=== PATIENT | male | born 1955 | race Caucasian/White ===

== ENCOUNTER 2021-08-02 14:22 | Inpatient (IN) | payer OTHER ==
[~2021-08-02] VITALS: Ht 167.6 cm; Wt 76.6 kg
[2021-08-02 14:44] LABS: Hematocrit 48.6 % (37.0-53.0); Hemoglobin 16.8 g/dL (13.5-17.5); Mean Corpuscular HGB 31.5 pg (26.0-34.0); Mean Corpuscular HGB Conc 34.6 g/dL (31.5-36.5); Mean Corpuscular Volume 91 fL (80-100); Mean Platelet Volume 10.9 fL (9.1-12.4); Platelet Count 244 K/mm3 (150-400); RDW Coefficient Variation 12.3 % (11.7-14.2); RDW Standard Deviation 40.8 fL (35.1-46.3); Red Blood Cell Count 5.33 M/mm3 (4.30-5.90); White Blood Cell Count 9.31 K/mm3 (4.00-11.30)
[2021-08-02 15:01] LABS: Troponin I <0.015 ng/mL (0.000-0.040)
[2021-08-02 15:08] LABS: Alanine Aminotransfer (ALT/SGP 21 U/L (12-78); Albumin, Blood 2.5 g/dL (3.4-5.0); Albumin/Globulin Ratio 0.6 (0.8-1.8); Alk Phos 112 U/L (50-136); Anion Gap 14 mmol/L (6-16); Aspartate Aminotrans (AST/SGOT 12 U/L (12-37); Bilirubin, Total 1.1 mg/dL (0.1-1.0); Blood Urea Nitrogen 89 mg/dL (8-24); Bun/Creatinine Ratio 63.6 (12.0-20.0); CO2, Blood 21 mmol/L (21-32); Chloride, Blood 96 mmol/L (98-108); Globulin, Blood 4.2 g/dL (2.2-4.0); Glomerular Filtration Rate 50 (60-); Glucose, Blood 603 mg/dL (70-99); Sodium, Blood 131 mmol/L (136-145); Total Protein, Blood 6.7 g/dL (6.4-8.2)
[2021-08-02 15:09] LABS: BAND PERCENT MAN 21 % (0-8); BASOPHILS PERCENT MAN 0 % (0-2); EOSINOPHILS PERCENT MAN 0 % (0-6); LYMPHOCYTES % ATYPICAL MANUAL 4 % (0-0); LYMPHOCYTES ABSOLUTE MAN 1.39 K/mm3 (0.84-5.20); LYMPHOCYTES PERCENT MAN 11 % (21-46); METAMYELOCYTE ABSOLUTE MAN 1.11 K/mm3 (0.00-0.00); METAMYELOCYTE PERCENT MAN 12 % (0-0); MONOCYTES ABSOLUTE MAN 0.46 K/mm3 (0.16-1.47); MONOCYTES PERCENT MAN 5 % (4-13); MYELOCYTE ABSOLUTE MAN 0.09 K/mm3 (0.00-0.00); MYELOCYTE PERCENT MAN 1 % (0-0); NEUTROPHILS ABSOLUTE MAN 6.23 K/mm3 (1.96-9.15); SEG NEUTROPHILS PERCENT MAN 46 % (41-73); TOTAL CELLS COUNTED 100
[2021-08-02 16:24] LABS: Source, Urine Clean Catch
[2021-08-02 16:27] LABS: Appearance, Urine Clear (Clear); Blood, Urine 1+ (Neg); Color, Urine Amber (P-Yellow); Glucose Qualitative, Urine 4+ (Neg); Ketones, Urine 3+ (Neg); Leukocyte Esterase, Urine 1+ (Neg); Nitrite, Urine Neg (Neg); Protein, Urine 2+ (Neg); Urobilinogen, Urine 2+ (Normal)
[2021-08-02 16:33] LABS: SARS-Cov-2 (COVID-19) PCR, MMC NEGATIVE (NEGATIVE)
[2021-08-02 16:33] LABS: Bilirubin, Urine 1+ (Neg)
[2021-08-02 16:34] LABS: Squamous Epithelial Cells Mod /hpf (Few)
[2021-08-02 16:35] LABS: Bacteria Mod /hpf
--- NOTE | 2021-08-02 20:13 | NUR ---
transfer report from [employer] on 66 year Male covid neg with bilat LL pneu. PT has no med hx but BG 610 on ER record. Has sliding scale insulin rx for 1999, CT pulm angio for elev D Dimer. Bowel obs NPO . ABX x 2 given 2nd l IVF running. Await admissio n. RA sats greater than 92%
[2021-08-02 21:53] LABS: Adenovirus Not Detected (NOT DETECT); Bordetella pertussis Not Detected (NOT DETECT); Chlamydophila pneumoniae Not Detected (NOT DETECT); Coronavirus 229E Not Detected (NOT DETECT); Coronavirus HKU1 Not Detected (NOT DETECT); Coronavirus NL63 Not Detected (NOT DETECT); Coronavirus OC43 Not Detected (NOT DETECT); Human Metapneumovirus Not Detected (NOT DETECT); Human Rhinovirus/Enterovirus Not Detected (NOT DETECT); Influenza A/2009-H1 Not Detected (NOT DETECT); Influenza A/H1 Not Detected (NOT DETECT); Influenza A/H3 Not Detected (NOT DETECT); Influenza B Not Detected (NOT DETECT); Mycoplasma pneumoniae Not Detected (NOT DETECT); Parainfluenza Virus 1 Not Detected (NOT DETECT); Parainfluenza Virus 2 Not Detected (NOT DETECT); Parainfluenza Virus 3 Not Detected (NOT DETECT); Parainfluenza Virus 4 Not Detected (NOT DETECT); Respiratory Syncytial Virus Not Detected (NOT DETECT); SARS-Cov-2 (COVID-19), BioFire Not Detected (NOT DETECT)
[2021-08-03 05:24] LABS: Hematocrit 48.8 % (37.0-53.0); LYMPHOCYTES ABSOLUTE AUTO 1.52 K/mm3 (0.84-5.20); LYMPHOCYTES PERCENT AUTO 17 % (21-46); MONOCYTES ABSOLUTE AUTO 1.18 K/mm3 (0.16-1.47); MONOCYTES PERCENT AUTO 13 % (4-13); Mean Corpuscular HGB 30.4 pg (26.0-34.0); Mean Corpuscular HGB Conc 32.8 g/dL (31.5-36.5); Mean Corpuscular Volume 93 fL (80-100); Mean Platelet Volume 10.8 fL (9.1-12.4); Platelet Count 226 K/mm3 (150-400); RDW Coefficient Variation 12.4 % (11.7-14.2); RDW Standard Deviation 42.7 fL (35.1-46.3); Red Blood Cell Count 5.27 M/mm3 (4.30-5.90); White Blood Cell Count 8.85 K/mm3 (4.00-11.30)
[2021-08-03 05:33] LABS: BASOPHILS ABSOLUTE AUTO 0.01 K/mm3 (0.00-0.23); BASOPHILS PERCENT AUTO 0 % (0-2); EOSINOPHILS ABSOLUTE AUTO 0.07 K/mm3 (0.00-0.68); EOSINOPHILS PERCENT AUTO 1 % (0-6); IMMATURE GRAN ABSOLUTE AUTO 0.16 K/mm3 (0.00-0.10); IMMATURE GRAN PERCENT AUTO 2 % (0-1); NEUTROPHILS ABSOLUTE AUTO 5.91 K/mm3 (1.96-9.15); NEUTROPHILS PERCENT AUTO 67 % (41-73)
[2021-08-03 05:43] LABS: Magnesium, Blood 3.2 mg/dL (1.6-2.4)
[2021-08-03 05:44] LABS: Anion Gap 6 mmol/L (6-16); Blood Urea Nitrogen 74 mg/dL (8-24); Bun/Creatinine Ratio 68.5 (12.0-20.0); CO2, Blood 28 mmol/L (21-32); Calcium, Blood 7.6 mg/dL (8.5-10.1); Chloride, Blood 107 mmol/L (98-108); Creatinine, Blood 1.08 mg/dL (0.60-1.20); Glomerular Filtration Rate >60 (60-); Glucose, Blood 241 mg/dL (70-99); Phosphorus, Blood 3.7 mg/dL (2.5-4.9); Potassium, Blood 3.5 mmol/L (3.5-5.5); Sodium, Blood 141 mmol/L (136-145)
[2021-08-03 06:08] LABS: BAND PERCENT MAN 22 % (0-8); BASOPHILS PERCENT MAN 0 % (0-2); EOSINOPHILS PERCENT MAN 0 % (0-6); LYMPHOCYTES % ATYPICAL MANUAL 1 % (0-0); LYMPHOCYTES ABSOLUTE MAN 1.68 K/mm3 (0.84-5.20); LYMPHOCYTES PERCENT MAN 18 % (21-46); METAMYELOCYTE ABSOLUTE MAN 0.26 K/mm3 (0.00-0.00); METAMYELOCYTE PERCENT MAN 3 % (0-0); MONOCYTES ABSOLUTE MAN 1.15 K/mm3 (0.16-1.47); MONOCYTES PERCENT MAN 13 % (4-13); NEUTROPHILS ABSOLUTE MAN 5.75 K/mm3 (1.96-9.15); SEG NEUTROPHILS PERCENT MAN 43 % (41-73); TOTAL CELLS COUNTED 100
--- NOTE | 2021-08-03 10:43 | NUR ---
PATIENT EMESISED, OPAQUE BROWN FLUID, NG PLACED, LEFT FOR SURGERY AT 1040, TO RETURN TO ROOM, PATIENTS BROTHER YOMAIRA WAS CONTACTED BY FOR CONSENT
--- NOTE | 2021-08-03 11:08 | NUR ---
CALLED PATIENTS BROTHER YOMAIRA, BOTH THE PATIENT AND THE TWO BROTHERS AT HOME ARE HANDICAP, THE BROTHER YOMAIRA DENIED ANY REGUALR ADJUSTMENT SUPERVISOR AT HOME.
--- NOTE | 2021-08-03 12:10 | NUR ---
08/03/21 1210 Elia Ovalle UPON PREPARATION FOR CATHETERIZATION PATIENT NOTED TO HAVE DARK MATERIAL AROUND HEAD OF PENIS AND SMEGMA UNDER FORESKIN. PENIS WAS CLEANED WITH WARM SOAPY WATER AND WASH CLOTH BY [place] AND [place]. AFTER ESCOBAR PLACEMENT FORESKIN WAS REPLACED TO ORIGINAL POSITION.
--- NOTE | 2021-08-03 17:48 | NUR ---
PATIENT CURRENTLY LYING IN BED WITH HOB ELEVATED TO 30 DEGREES. NGT TO RIGHT NARE TO LIS WITH BROWN DRAINAGE NOTED IN TUBING. BOWEL SOUNDS HYPERACTIVE WITH VERY GOOD OUTPUT OF STOOL FROM COLOSTOMY (600ML). FLATUS NOTED. ESCOBAR CATH WITH DARK JAYE COLOR URINE IN DRAINAGE BAG. PATIENT IS AAOX3-4. ABLE TO MAKE NEEDS AND WANTS KNOWN. SLOW TO ANSWER QUESTIONS BUT RESPONDS/ANSWERS CORRECTLY. NO SIGNS OR SYMPTOMS ACUTE DISTRESS NOTED. WILL MONITOR.
--- NOTE | 2021-08-03 18:01 | NUR ---
PATIENT SAID YES TO TALKING TO JOJO LARA, AT MAY THIS BE HOME? SPOKE WITH JOJO 1802
[2021-08-03 18:56] LABS: Hematocrit 49.7 % (37.0-53.0); Hemoglobin 16.5 g/dL (13.5-17.5); Mean Corpuscular HGB 31.7 pg (26.0-34.0); Mean Corpuscular HGB Conc 33.2 g/dL (31.5-36.5); Mean Corpuscular Volume 95 fL (80-100); Mean Platelet Volume 10.3 fL (9.1-12.4); Platelet Count 190 K/mm3 (150-400); RDW Coefficient Variation 12.5 % (11.7-14.2); RDW Standard Deviation 44.1 fL (35.1-46.3); Red Blood Cell Count 5.21 M/mm3 (4.30-5.90); White Blood Cell Count 10.62 K/mm3 (4.00-11.30)
[2021-08-03 19:15] LABS: Alanine Aminotransfer (ALT/SGP 14 U/L (12-78); Albumin, Blood 1.6 g/dL (3.4-5.0); Albumin/Globulin Ratio 0.5 (0.8-1.8); Alk Phos 80 U/L (50-136); Anion Gap 9 mmol/L (6-16); Aspartate Aminotrans (AST/SGOT 13 U/L (12-37); Bilirubin, Total 0.5 mg/dL (0.1-1.0); Blood Urea Nitrogen 58 mg/dL (8-24); Bun/Creatinine Ratio 68.4 (12.0-20.0); CO2, Blood 24 mmol/L (21-32); Calcium, Blood 7.5 mg/dL (8.5-10.1); Chloride, Blood 110 mmol/L (98-108); Creatinine, Blood 0.85 mg/dL (0.60-1.20); Globulin, Blood 3.2 g/dL (2.2-4.0); Glomerular Filtration Rate >60 (60-); Glucose, Blood 190 mg/dL (70-99); Potassium, Blood 4.2 mmol/L (3.5-5.5); Sodium, Blood 143 mmol/L (136-145); Total Protein, Blood 4.8 g/dL (6.4-8.2)
[2021-08-03 20:04] LABS: BAND PERCENT MAN 48 % (0-8); BASOPHILS PERCENT MAN 0 % (0-2); EOSINOPHILS PERCENT MAN 0 % (0-6); LYMPHOCYTES % ATYPICAL MANUAL 3 % (0-0); LYMPHOCYTES ABSOLUTE MAN 0.95 K/mm3 (0.84-5.20); LYMPHOCYTES PERCENT MAN 6 % (21-46); METAMYELOCYTE ABSOLUTE MAN 1.38 K/mm3 (0.00-0.00); METAMYELOCYTE PERCENT MAN 13 % (0-0); MONOCYTES ABSOLUTE MAN 0.21 K/mm3 (0.16-1.47); MONOCYTES PERCENT MAN 2 % (4-13); NEUTROPHILS ABSOLUTE MAN 8.07 K/mm3 (1.96-9.15); SEG NEUTROPHILS PERCENT MAN 28 % (41-73); TOTAL CELLS COUNTED 100
[2021-08-04 04:16] LABS: BASOPHILS ABSOLUTE AUTO 0.01 K/mm3 (0.00-0.23); BASOPHILS PERCENT AUTO 0 % (0-2); EOSINOPHILS PERCENT AUTO 0 % (0-6); Hematocrit 46.1 % (37.0-53.0); Hemoglobin 14.8 g/dL (13.5-17.5); IMMATURE GRAN ABSOLUTE AUTO 0.34 K/mm3 (0.00-0.10); IMMATURE GRAN PERCENT AUTO 3 % (0-1); LYMPHOCYTES ABSOLUTE AUTO 0.88 K/mm3 (0.84-5.20); LYMPHOCYTES PERCENT AUTO 8 % (21-46); MONOCYTES ABSOLUTE AUTO 1.04 K/mm3 (0.16-1.47); MONOCYTES PERCENT AUTO 9 % (4-13); Mean Corpuscular HGB 31.2 pg (26.0-34.0); Mean Corpuscular HGB Conc 32.1 g/dL (31.5-36.5); Mean Corpuscular Volume 97 fL (80-100); Mean Platelet Volume 10.5 fL (9.1-12.4); NEUTROPHILS ABSOLUTE AUTO 9.23 K/mm3 (1.96-9.15); NEUTROPHILS PERCENT AUTO 80 % (41-73); Platelet Count 197 K/mm3 (150-400); RDW Coefficient Variation 12.7 % (11.7-14.2); RDW Standard Deviation 45.5 fL (35.1-46.3); Red Blood Cell Count 4.75 M/mm3 (4.30-5.90)
[2021-08-04 04:48] LABS: Alanine Aminotransfer (ALT/SGP 13 U/L (12-78); Albumin, Blood 1.5 g/dL (3.4-5.0); Albumin/Globulin Ratio 0.5 (0.8-1.8); Alk Phos 77 U/L (50-136); Anion Gap 15 mmol/L (6-16); Aspartate Aminotrans (AST/SGOT 10 U/L (12-37); Bilirubin, Total 0.5 mg/dL (0.1-1.0); Blood Urea Nitrogen 63 mg/dL (8-24); CO2, Blood 16 mmol/L (21-32); Calcium, Blood 7.3 mg/dL (8.5-10.1); Chloride, Blood 113 mmol/L (98-108); Creatinine, Blood 1.05 mg/dL (0.60-1.20); Globulin, Blood 3.2 g/dL (2.2-4.0); Glomerular Filtration Rate >60 (60-); Glucose, Blood 256 mg/dL (70-99); Magnesium, Blood 2.8 mg/dL (1.6-2.4); Phosphorus, Blood 4.1 mg/dL (2.5-4.9); Potassium, Blood 3.9 mmol/L (3.5-5.5); Sodium, Blood 144 mmol/L (136-145); Total Protein, Blood 4.7 g/dL (6.4-8.2)
--- NOTE | 2021-08-04 05:07 | NUR ---
PATIENT SLEPT WELL DURING THE NIGHT. BLOOD GLUCOSE WAS TAKE Q 4 HOURS AND WAS FOLLOWS 225, 223, AND 256. COLOSTOMY WAS EMPTIED X 2 AT 425 ML. 300 ML OF DARK JAYE URINE WAS EMPTIED FROM THE ESCOBAR. THE NGT PUT OUT VERY LITTLE BROWN DRAINAGE. PATIENT WAS MEDICATED FOR PAIN X 1. PATIENT SHOWS NO SIGN OF DISTRESS. WILL CONTINUE TO MONITOR.
[2021-08-04 05:18] LABS: BAND PERCENT MAN 11 % (0-8); BASOPHILS PERCENT MAN 0 % (0-2); EOSINOPHILS PERCENT MAN 0 % (0-6); LYMPHOCYTES ABSOLUTE MAN 0.46 K/mm3 (0.84-5.20); LYMPHOCYTES PERCENT MAN 4 % (21-46); MONOCYTES ABSOLUTE MAN 0.69 K/mm3 (0.16-1.47); MONOCYTES PERCENT MAN 6 % (4-13); NEUTROPHILS ABSOLUTE MAN 10.35 K/mm3 (1.96-9.15); SEG NEUTROPHILS PERCENT MAN 79 % (41-73); TOTAL CELLS COUNTED 100
--- NOTE | 2021-08-04 17:53 | NUR ---
SHIFT SUMMARY ASSUMPTION OF CARE AT APPROX 1515. POD1 SIGMOID COLECTOMY. MIDLINE SRINIVAS DRESSING IN PLACE, C/D/I. PT ALERT AND ORIENTED, BUT SLOW TO RESPOND. NG TUBE IN PLACE AND DRAINING. ESCOBAR IN PLACE. PULSE OX ON 95% RA. TOLERATING SIPS AND CHIPS. WILL REPORT TO ONCOMING RN.
[2021-08-05 04:26] LABS: Hematocrit 39.9 % (37.0-53.0); Hemoglobin 12.8 g/dL (13.5-17.5); Mean Corpuscular HGB 31.1 pg (26.0-34.0); Mean Corpuscular HGB Conc 32.1 g/dL (31.5-36.5); Mean Corpuscular Volume 97 fL (80-100); Mean Platelet Volume 10.3 fL (9.1-12.4); Platelet Count 176 K/mm3 (150-400); RDW Coefficient Variation 12.9 % (11.7-14.2); RDW Standard Deviation 46.2 fL (35.1-46.3); Red Blood Cell Count 4.11 M/mm3 (4.30-5.90); White Blood Cell Count 14.52 K/mm3 (4.00-11.30)
[2021-08-05 04:58] LABS: Alanine Aminotransfer (ALT/SGP 12 U/L (12-78); Albumin, Blood 1.4 g/dL (3.4-5.0); Albumin/Globulin Ratio 0.4 (0.8-1.8); Alk Phos 75 U/L (50-136); Anion Gap 8 mmol/L (6-16); Aspartate Aminotrans (AST/SGOT 13 U/L (12-37); Bilirubin, Total 0.4 mg/dL (0.1-1.0); Blood Urea Nitrogen 44 mg/dL (8-24); Bun/Creatinine Ratio 51.7 (12.0-20.0); CO2, Blood 24 mmol/L (21-32); Calcium, Blood 7.1 mg/dL (8.5-10.1); Chloride, Blood 120 mmol/L (98-108); Creatinine, Blood 0.85 mg/dL (0.60-1.20); Globulin, Blood 3.2 g/dL (2.2-4.0); Glomerular Filtration Rate >60 (60-); Glucose, Blood 178 mg/dL (70-99); Magnesium, Blood 2.5 mg/dL (1.6-2.4); Potassium, Blood 2.6 mmol/L (3.5-5.5); Sodium, Blood 152 mmol/L (136-145); Total Protein, Blood 4.6 g/dL (6.4-8.2)
[2021-08-05 05:21] LABS: BAND PERCENT MAN 20 % (0-8); BASOPHILS PERCENT MAN 0 % (0-2); EOSINOPHILS ABSOLUTE MAN 0.14 K/mm3 (0.00-0.68); EOSINOPHILS PERCENT MAN 1 % (0-6); LYMPHOCYTES ABSOLUTE MAN 1.16 K/mm3 (0.84-5.20); LYMPHOCYTES PERCENT MAN 8 % (21-46); MONOCYTES PERCENT MAN 9 % (4-13); SEG NEUTROPHILS PERCENT MAN 62 % (41-73); TOTAL CELLS COUNTED 100
--- NOTE | 2021-08-05 06:27 | NUR ---
PATIENT HAD AN UNEVENTFUL NIGHT. PATIENT HAD 500 ML OF DRAINAGE FROM THE NGT. 700 WAS EMPTIRD FROM THE ESCOBAR. PATIENT PAIN REMAINS CONTROLLED WITH THE BOOSTER PUMP OPERATOR PUMP. PATIENT'S VITALS ARE STABLE AND THERE IS NO SIGN OF DISTRESS. WILL CONTINUE TO MONITOR.
--- NOTE | 2021-08-05 10:36 | NUR ---
PLACED A PHONE CALL TO DR HOPPER AT APROX 1035 CONCERNING PTS ELECTROLYTE LEVELS. STATED THAT SHE WOULD REVIEW THEM. NO ORDERS AT THIS TIME.
[2021-08-05 15:54] LABS: Albumin, Blood 1.3 g/dL (3.4-5.0); Anion Gap 8 mmol/L (6-16); Blood Urea Nitrogen 34 mg/dL (8-24); Bun/Creatinine Ratio 44.3 (12.0-20.0); CO2, Blood 25 mmol/L (21-32); Calcium, Blood 7.3 mg/dL (8.5-10.1); Chloride, Blood 119 mmol/L (98-108); Creatinine, Blood 0.77 mg/dL (0.60-1.20); Glomerular Filtration Rate >60 (60-); Glucose, Blood 195 mg/dL (70-99); Phosphorus, Blood 2.4 mg/dL (2.5-4.9); Potassium, Blood 2.6 mmol/L (3.5-5.5); Sodium, Blood 152 mmol/L (136-145)
--- NOTE | 2021-08-05 17:47 | NUR ---
SHIFT SUMMARY A/0X4, SLOW TO RESPOND. POD2 SIGMOID COLECTOMY WITH OSTOMY. PT VITALS STABLE, PULSE STILL TACHY BUT TRENDING DOWN. ESCOBAR PATENT DRAINING CLEAR YELLOW URINE. NG TUBE PATENT, DRAINING DARK FLUID. PT UP TO BEDSIDE TODAY AND PAIN STILL BEING MANAGED WITH DEPUTY SHERIFF PUMP. OSTOMY PUTTING OUT STOOL. TOLERATING SIPS AND CHIPS. NO N/V REPORTED. WILL REPORT TO ONCOMING RN.
[2021-08-06 05:31] LABS: Hematocrit 40.7 % (37.0-53.0); Hemoglobin 12.9 g/dL (13.5-17.5); Mean Corpuscular HGB 30.9 pg (26.0-34.0); Mean Corpuscular HGB Conc 31.7 g/dL (31.5-36.5); Mean Corpuscular Volume 97 fL (80-100); Mean Platelet Volume 10.9 fL (9.1-12.4); Platelet Count 144 K/mm3 (150-400); RDW Coefficient Variation 13.2 % (11.7-14.2); RDW Standard Deviation 47.8 fL (35.1-46.3); Red Blood Cell Count 4.18 M/mm3 (4.30-5.90); White Blood Cell Count 13.41 K/mm3 (4.00-11.30)
--- NOTE | 2021-08-06 05:40 | NUR ---
PATIENT REMAINS ALERT AND ORIENTED X4, BUT SLOW TO RESPOND. PAIN IS CONTROLLED WITH A ACQUISITION EDITOR PUMP. VITALS AND BLOOD GLUCOSE IS STABLE, AND THERE IS NO SIGN OF DISTRESS, WILL CONTINUE TO MONITOR.
[2021-08-06 06:12] LABS: BAND PERCENT MAN 4 % (0-8); BASOPHILS PERCENT MAN 0 % (0-2); EOSINOPHILS PERCENT MAN 0 % (0-6); LYMPHOCYTES PERCENT MAN 3 % (21-46); METAMYELOCYTE ABSOLUTE MAN 0.13 K/mm3 (0.00-0.00); METAMYELOCYTE PERCENT MAN 1 % (0-0); MONOCYTES ABSOLUTE MAN 0.26 K/mm3 (0.16-1.47); MONOCYTES PERCENT MAN 2 % (4-13); MYELOCYTE ABSOLUTE MAN 0.13 K/mm3 (0.00-0.00); MYELOCYTE PERCENT MAN 1 % (0-0); NEUTROPHILS ABSOLUTE MAN 12.47 K/mm3 (1.96-9.15); SEG NEUTROPHILS PERCENT MAN 89 % (41-73); TOTAL CELLS COUNTED 100
--- NOTE | 2021-08-06 06:54 | NUR ---
POTASSIUM WAS 2.6, POTASSIUM 500ML IV X 2 WAS GIVEN. LABS ARE PENDING. WILL CONTINUE TO MONITOR.
[2021-08-06 07:00] LABS: Albumin, Blood 1.3 g/dL (3.4-5.0); Anion Gap 9 mmol/L (6-16); Blood Urea Nitrogen 22 mg/dL (8-24); Bun/Creatinine Ratio 33.7 (12.0-20.0); CO2, Blood 24 mmol/L (21-32); Calcium, Blood 7.3 mg/dL (8.5-10.1); Chloride, Blood 117 mmol/L (98-108); Creatinine, Blood 0.65 mg/dL (0.60-1.20); Glomerular Filtration Rate >60 (60-); Glucose, Blood 200 mg/dL (70-99); Magnesium, Blood 2.6 mg/dL (1.6-2.4); Phosphorus, Blood 2.6 mg/dL (2.5-4.9); Potassium, Blood 2.6 mmol/L (3.5-5.5); Sodium, Blood 150 mmol/L (136-145)
[2021-08-06 10:09] LABS: Albumin, Blood 1.4 g/dL (3.4-5.0); Anion Gap 6 mmol/L (6-16); Blood Urea Nitrogen 19 mg/dL (8-24); Bun/Creatinine Ratio 35.1 (12.0-20.0); CO2, Blood 26 mmol/L (21-32); Calcium, Blood 7.2 mg/dL (8.5-10.1); Chloride, Blood 118 mmol/L (98-108); Creatinine, Blood 0.54 mg/dL (0.60-1.20); Glomerular Filtration Rate >60 (60-); Glucose, Blood 184 mg/dL (70-99); Phosphorus, Blood 1.7 mg/dL (2.5-4.9); Potassium, Blood 2.2 mmol/L (3.5-5.5); Sodium, Blood 150 mmol/L (136-145)
[2021-08-06 15:08] LABS: Albumin, Blood 1.4 g/dL (3.4-5.0); Anion Gap 7 mmol/L (6-16); Blood Urea Nitrogen 17 mg/dL (8-24); Bun/Creatinine Ratio 28.6 (12.0-20.0); CO2, Blood 28 mmol/L (21-32); Chloride, Blood 114 mmol/L (98-108); Glomerular Filtration Rate >60 (60-); Glucose, Blood 251 mg/dL (70-99); Phosphorus, Blood 2.3 mg/dL (2.5-4.9); Potassium, Blood 2.3 mmol/L (3.5-5.5); Sodium, Blood 149 mmol/L (136-145)
--- NOTE | 2021-08-06 17:23 | NUR ---
SUMMARY PT HAS HAD CL K T/O DAY. REC'D ONE K PHOS PER ORDERS NOW RECEIVING KCL PER ORDERS. ADMINISTERED IV ABX PER ORDERS. PT SAT UP IN CHAIR FOR AWHILE DURING SHIFT. NG DRAINING GREEN LIQUID W/SOME SOLID MATTER TO LIS. OSTOMY DRAINING GREEN LIQUID. PT DENIES ANY ABDOMINAL PAIN OR NAUSEA. CALL LIGHT AND PARKS RECREATION COORDINATOR IN REACH.
[2021-08-06 22:13] LABS: Albumin, Blood 1.2 g/dL (3.4-5.0); Anion Gap 5 mmol/L (6-16); Blood Urea Nitrogen 13 mg/dL (8-24); Bun/Creatinine Ratio 25.6 (12.0-20.0); CO2, Blood 29 mmol/L (21-32); Calcium, Blood 6.9 mg/dL (8.5-10.1); Chloride, Blood 113 mmol/L (98-108); Creatinine, Blood 0.51 mg/dL (0.60-1.20); Glomerular Filtration Rate >60 (60-); Glucose, Blood 249 mg/dL (70-99); Phosphorus, Blood 1.6 mg/dL (2.5-4.9); Potassium, Blood 2.3 mmol/L (3.5-5.5); Sodium, Blood 147 mmol/L (136-145)
--- NOTE | 2021-08-07 01:50 | NUR ---
PATIENT HAD CRITICAL POTASSIUM OF 2.3, AND MD NOTIFIED AND FLUIDS WERE CHANGED TO D5 1/4 NS WITH 20 MEQ OF POTASSIUM, 60 MEQ OVER A 6 HOUR PERIOD, AND TELEMETRY WAS ORDERING AND BEING ADMINISTERED. WILL CONTINUE TO MONITOR.
--- NOTE | 2021-08-07 05:28 | NUR ---
PATIENT RECEIVED 40 MEQ OF POTASSIUM AND THE LASDT 20 MEQ IS INFUSING. LABS WILL BE DRAWN AT 0700, WHICH WILL BE AN HOUR AFTER COMPLETION OF THE 60 MEQ IV OF POTASSIUM. I WILL REPORT THIS TO THE ONCOMING NURSE. WILL CONTINUE TO MONITOR.
[2021-08-07 08:34] LABS: Albumin, Blood 1.4 g/dL (3.4-5.0); Anion Gap 5 mmol/L (6-16); Blood Urea Nitrogen 10 mg/dL (8-24); Bun/Creatinine Ratio 20.7 (12.0-20.0); CO2, Blood 29 mmol/L (21-32); Chloride, Blood 114 mmol/L (98-108); Creatinine, Blood 0.48 mg/dL (0.60-1.20); Glomerular Filtration Rate >60 (60-); Glucose, Blood 234 mg/dL (70-99); Phosphorus, Blood 1.4 mg/dL (2.5-4.9); Potassium, Blood 2.4 mmol/L (3.5-5.5); Sodium, Blood 148 mmol/L (136-145)
--- NOTE | 2021-08-07 08:50 | NUR ---
PT HAD CRITICAL K OF 2.4. TELE REPORTED WIDENED QT COMPLEX OF .5. NOTIFIED DR HUNT.
[2021-08-07 10:22] LABS: BASOPHILS ABSOLUTE AUTO 0.04 K/mm3 (0.00-0.23); BASOPHILS PERCENT AUTO 0 % (0-2); EOSINOPHILS ABSOLUTE AUTO 0.04 K/mm3 (0.00-0.68); EOSINOPHILS PERCENT AUTO 0 % (0-6); Hematocrit 34.7 % (37.0-53.0); Hemoglobin 11.5 g/dL (13.5-17.5); IMMATURE GRAN ABSOLUTE AUTO 0.33 K/mm3 (0.00-0.10); IMMATURE GRAN PERCENT AUTO 3 % (0-1); LYMPHOCYTES ABSOLUTE AUTO 1.33 K/mm3 (0.84-5.20); LYMPHOCYTES PERCENT AUTO 11 % (21-46); MONOCYTES PERCENT AUTO 8 % (4-13); Mean Corpuscular HGB 31.6 pg (26.0-34.0); Mean Corpuscular HGB Conc 33.1 g/dL (31.5-36.5); Mean Corpuscular Volume 95 fL (80-100); Mean Platelet Volume 10.9 fL (9.1-12.4); NEUTROPHILS ABSOLUTE AUTO 9.03 K/mm3 (1.96-9.15); NEUTROPHILS PERCENT AUTO 78 % (41-73); Platelet Count 157 K/mm3 (150-400); RDW Coefficient Variation 12.7 % (11.7-14.2); RDW Standard Deviation 44.7 fL (35.1-46.3); Red Blood Cell Count 3.64 M/mm3 (4.30-5.90); White Blood Cell Count 11.67 K/mm3 (4.00-11.30)
[2021-08-07 10:50] LABS: Albumin, Blood 1.2 g/dL (3.4-5.0); Anion Gap 5 mmol/L (6-16); Blood Urea Nitrogen 9 mg/dL (8-24); Bun/Creatinine Ratio 19.8 (12.0-20.0); CO2, Blood 29 mmol/L (21-32); Chloride, Blood 113 mmol/L (98-108); Creatinine, Blood 0.45 mg/dL (0.60-1.20); Glomerular Filtration Rate >60 (60-); Glucose, Blood 244 mg/dL (70-99); Phosphorus, Blood 1.3 mg/dL (2.5-4.9); Potassium, Blood 2.3 mmol/L (3.5-5.5); Sodium, Blood 147 mmol/L (136-145)
[2021-08-07 15:58] LABS: Albumin, Blood 1.3 g/dL (3.4-5.0); Anion Gap 7 mmol/L (6-16); Blood Urea Nitrogen 8 mg/dL (8-24); Bun/Creatinine Ratio 15.4 (12.0-20.0); CO2, Blood 28 mmol/L (21-32); Chloride, Blood 111 mmol/L (98-108); Creatinine, Blood 0.52 mg/dL (0.60-1.20); Glomerular Filtration Rate >60 (60-); Glucose, Blood 246 mg/dL (70-99); Phosphorus, Blood 2.8 mg/dL (2.5-4.9); Potassium, Blood 2.6 mmol/L (3.5-5.5); Sodium, Blood 146 mmol/L (136-145)
--- NOTE | 2021-08-07 17:01 | NUR ---
SUMMARY PT HAS CONTINUED TO HAVE LOW K. K PHOS RUNNING PER ORDERS AT THIS TIME. ADMISTERED IV ABX PER ORDERS. PT HAS DENIED PAIN T/O SHIFT. HAS SLEPT OFF AND ON MOST OF DAY. OSTOMY LEAKED INTO SRINIVAS DRESSING; CLEANED INCISION AND PLACED MEDIPORE DRESSING AND NEW OSTOMY APPLIANCE. PT TOLERATED WELL. NG AND OSTOMY DRAINING GREEN LIQUID. PT PLEASANT AND COOPERATIVE. CALL LIGHT IN REACH.
[2021-08-07 22:05] LABS: Albumin, Blood 1.3 g/dL (3.4-5.0); Anion Gap 5 mmol/L (6-16); Blood Urea Nitrogen 7 mg/dL (8-24); Bun/Creatinine Ratio 15.4 (12.0-20.0); CO2, Blood 30 mmol/L (21-32); Chloride, Blood 110 mmol/L (98-108); Creatinine, Blood 0.46 mg/dL (0.60-1.20); Glomerular Filtration Rate >60 (60-); Glucose, Blood 216 mg/dL (70-99); Phosphorus, Blood 2.3 mg/dL (2.5-4.9); Potassium, Blood 2.4 mmol/L (3.5-5.5); Sodium, Blood 145 mmol/L (136-145)
[2021-08-08 04:07] LABS: BASOPHILS ABSOLUTE AUTO 0.06 K/mm3 (0.00-0.23); BASOPHILS PERCENT AUTO 0 % (0-2); EOSINOPHILS ABSOLUTE AUTO 0.08 K/mm3 (0.00-0.68); EOSINOPHILS PERCENT AUTO 1 % (0-6); Hematocrit 37.5 % (37.0-53.0); Hemoglobin 12.5 g/dL (13.5-17.5); IMMATURE GRAN ABSOLUTE AUTO 0.32 K/mm3 (0.00-0.10); IMMATURE GRAN PERCENT AUTO 2 % (0-1); LYMPHOCYTES ABSOLUTE AUTO 1.49 K/mm3 (0.84-5.20); LYMPHOCYTES PERCENT AUTO 9 % (21-46); MONOCYTES ABSOLUTE AUTO 1.06 K/mm3 (0.16-1.47); MONOCYTES PERCENT AUTO 7 % (4-13); Mean Corpuscular HGB 31.3 pg (26.0-34.0); Mean Corpuscular HGB Conc 33.3 g/dL (31.5-36.5); Mean Corpuscular Volume 94 fL (80-100); Mean Platelet Volume 10.6 fL (9.1-12.4); NEUTROPHILS ABSOLUTE AUTO 13.03 K/mm3 (1.96-9.15); NEUTROPHILS PERCENT AUTO 81 % (41-73); Platelet Count 125 K/mm3 (150-400); RDW Coefficient Variation 12.4 % (11.7-14.2); RDW Standard Deviation 43.6 fL (35.1-46.3); Red Blood Cell Count 3.99 M/mm3 (4.30-5.90); White Blood Cell Count 16.04 K/mm3 (4.00-11.30)
[2021-08-08 04:22] LABS: Albumin, Blood 1.2 g/dL (3.4-5.0); Anion Gap 6 mmol/L (6-16); Blood Urea Nitrogen 5 mg/dL (8-24); CO2, Blood 29 mmol/L (21-32); Chloride, Blood 109 mmol/L (98-108); Creatinine, Blood 0.45 mg/dL (0.60-1.20); Glomerular Filtration Rate >60 (60-); Glucose, Blood 193 mg/dL (70-99); Phosphorus, Blood 2.2 mg/dL (2.5-4.9); Potassium, Blood 2.4 mmol/L (3.5-5.5); Sodium, Blood 144 mmol/L (136-145)
--- NOTE | 2021-08-08 07:11 | NUR ---
PT IS A/OX3. ABLE TO MAKE HIS NEEDS KNOWN. PLEASANT AND COOPERATIVE WITH STAFF AND HIS CARE. NO EVENTS OVER NIGHT. POD 5. NPO. NGT TO RT DEANDRE MIGUEL. GREEN EFFLUENT IN NGT CANNISTER. OSTOMY POUCH/WAFER INTACT, GREEN LIQUID EFFLUENT. ABD MIDLINE INCISION DRSG CDI. ESCOBAR CATHETER PATENT, DRAINING YELLOW URINE.
--- NOTE | 2021-08-08 17:47 | NUR ---
SHIFT SUMMARY POST OP SIG COLECTOMY WITH COLOSTOMY. GAUZE AND TAPE DRESSING OVER MIDLINE WAS CHANGED TODAY AND IS C/D/I. COLOSTMY APPLIANCES CHANGED TODAY, C/D/I. UP TO CHAIR FOR MOST OF THE DAY TODAY, TOLERATED IT WELL. NG TUBE AND ESCOBAR REMOVED TODAY. SLIGHT N/V WHEN NG REMOVED, NONE SINCE. SIPS AND CHIPS AT THIS TIME. VOIDING WELL. PT REPORTED NO PAIN TODAY. WILL REPORT TO ONCOMING RN.
[2021-08-09 05:05] LABS: BASOPHILS ABSOLUTE AUTO 0.04 K/mm3 (0.00-0.23); BASOPHILS PERCENT AUTO 0 % (0-2); EOSINOPHILS PERCENT AUTO 1 % (0-6); Hematocrit 35.4 % (37.0-53.0); Hemoglobin 12.1 g/dL (13.5-17.5); IMMATURE GRAN ABSOLUTE AUTO 0.34 K/mm3 (0.00-0.10); IMMATURE GRAN PERCENT AUTO 2 % (0-1); LYMPHOCYTES ABSOLUTE AUTO 1.43 K/mm3 (0.84-5.20); LYMPHOCYTES PERCENT AUTO 9 % (21-46); MONOCYTES ABSOLUTE AUTO 0.97 K/mm3 (0.16-1.47); MONOCYTES PERCENT AUTO 6 % (4-13); Mean Corpuscular HGB 31.4 pg (26.0-34.0); Mean Corpuscular HGB Conc 34.2 g/dL (31.5-36.5); Mean Corpuscular Volume 92 fL (80-100); Mean Platelet Volume 10.7 fL (9.1-12.4); NEUTROPHILS ABSOLUTE AUTO 13.47 K/mm3 (1.96-9.15); NEUTROPHILS PERCENT AUTO 83 % (41-73); Platelet Count 145 K/mm3 (150-400); RDW Coefficient Variation 12.4 % (11.7-14.2); RDW Standard Deviation 41.3 fL (35.1-46.3); Red Blood Cell Count 3.85 M/mm3 (4.30-5.90); White Blood Cell Count 16.35 K/mm3 (4.00-11.30)
[2021-08-09 05:26] LABS: Magnesium, Blood 1.7 mg/dL (1.6-2.4)
[2021-08-09 05:46] LABS: Albumin, Blood 1.3 g/dL (3.4-5.0); Anion Gap 5 mmol/L (6-16); Blood Urea Nitrogen 5 mg/dL (8-24); CO2, Blood 32 mmol/L (21-32); Chloride, Blood 106 mmol/L (98-108); Creatinine, Blood 0.46 mg/dL (0.60-1.20); Glomerular Filtration Rate >60 (60-); Glucose, Blood 134 mg/dL (70-99); Phosphorus, Blood 1.9 mg/dL (2.5-4.9); Potassium, Blood 2.2 mmol/L (3.5-5.5); Sodium, Blood 143 mmol/L (136-145); Triglycerides 82 mg/dL (30-160)
[2021-08-09 15:19] LABS: Albumin, Blood 1.3 g/dL (3.4-5.0); Anion Gap 6 mmol/L (6-16); Blood Urea Nitrogen 7 mg/dL (8-24); Bun/Creatinine Ratio 15.4 (12.0-20.0); CO2, Blood 31 mmol/L (21-32); Calcium, Blood 6.9 mg/dL (8.5-10.1); Chloride, Blood 103 mmol/L (98-108); Creatinine, Blood 0.46 mg/dL (0.60-1.20); Glomerular Filtration Rate >60 (60-); Glucose, Blood 249 mg/dL (70-99); Phosphorus, Blood 3.4 mg/dL (2.5-4.9); Potassium, Blood 2.6 mmol/L (3.5-5.5); Sodium, Blood 140 mmol/L (136-145)
--- NOTE | 2021-08-09 17:17 | NUR ---
SHIFT SUMMARY PT IS PLEASANT & UPBEAT. HAS TOLERATED CLEAR LQ's WELL TODAY. DENIES ABD PAIN OR N/V POST MEAL. OSTOMY w/ GOOD OUTPUT. K RIDER INFUSING PER NEW ORDERS. PT VERY WEAK TODAY & COULD ONLY DANGLE AT BEDSIDE w/ THERAPY.
[2021-08-10 04:31] LABS: BASOPHILS ABSOLUTE AUTO 0.04 K/mm3 (0.00-0.23); BASOPHILS PERCENT AUTO 0 % (0-2); EOSINOPHILS ABSOLUTE AUTO 0.11 K/mm3 (0.00-0.68); EOSINOPHILS PERCENT AUTO 1 % (0-6); Hemoglobin 12.1 g/dL (13.5-17.5); IMMATURE GRAN ABSOLUTE AUTO 0.31 K/mm3 (0.00-0.10); IMMATURE GRAN PERCENT AUTO 2 % (0-1); LYMPHOCYTES ABSOLUTE AUTO 1.31 K/mm3 (0.84-5.20); LYMPHOCYTES PERCENT AUTO 10 % (21-46); MONOCYTES ABSOLUTE AUTO 0.87 K/mm3 (0.16-1.47); MONOCYTES PERCENT AUTO 7 % (4-13); Mean Corpuscular HGB 30.6 pg (26.0-34.0); Mean Corpuscular HGB Conc 33.6 g/dL (31.5-36.5); Mean Corpuscular Volume 91 fL (80-100); Mean Platelet Volume 10.5 fL (9.1-12.4); NEUTROPHILS PERCENT AUTO 80 % (41-73); Platelet Count 157 K/mm3 (150-400); RDW Standard Deviation 40.3 fL (35.1-46.3); Red Blood Cell Count 3.95 M/mm3 (4.30-5.90); White Blood Cell Count 12.94 K/mm3 (4.00-11.30)
[2021-08-10 04:54] LABS: Alanine Aminotransfer (ALT/SGP 11 U/L (12-78); Albumin, Blood 1.2 g/dL (3.4-5.0); Albumin/Globulin Ratio 0.4 (0.8-1.8); Alk Phos 92 U/L (50-136); Anion Gap 5 mmol/L (6-16); Aspartate Aminotrans (AST/SGOT 15 U/L (12-37); Bilirubin, Total 0.4 mg/dL (0.1-1.0); Blood Urea Nitrogen 5 mg/dL (8-24); Bun/Creatinine Ratio 9.8 (12.0-20.0); CO2, Blood 31 mmol/L (21-32); Calcium, Blood 6.9 mg/dL (8.5-10.1); Chloride, Blood 105 mmol/L (98-108); Creatinine, Blood 0.51 mg/dL (0.60-1.20); Globulin, Blood 3.3 g/dL (2.2-4.0); Glomerular Filtration Rate >60 (60-); Glucose, Blood 196 mg/dL (70-99); Magnesium, Blood 1.7 mg/dL (1.6-2.4); Phosphorus, Blood 1.9 mg/dL (2.5-4.9); Potassium, Blood 2.7 mmol/L (3.5-5.5); Sodium, Blood 141 mmol/L (136-145); Total Protein, Blood 4.5 g/dL (6.4-8.2)
--- NOTE | 2021-08-10 06:02 | NUR ---
PT IS A/OX3. ABLE TO MAKE HIS NEEDS KNOWN. PLEASANT AND COOPERATIVE WITH STAFF AND HIS CARE. HX OF DEVELOPMENTAL DELAY. PIV TO LUE PATENT BUT NO BLOOD RETURN. LUE RED/SWOLLEN AND WARM-HOT TOUCH. DR GRAVES NOTIFIED AT 4047. ORDERS RECEIVED FOR U/S TO LUE TO R/O DVT. PIV TO RFA PATENT. TELE: SR. DRESG TO ABD MIDLINE INCISION IS CDI. OSTOMY POUC/WAFER INTACT WITH GREEN/BROWN EFFLUENT. TOLERATING CL DIET WELL. TOOK PILLS CUT IN HALF.
--- NOTE | 2021-08-10 08:39 | NUR ---
DR. HUNT ROUNDED ON PT THIS MORNING. OK TO PLACE POWER GLIDE FOR IV MANAGEMENT. PLAN FOR SWALLOW EVAL R/T COUGHING WITH PILLS.
[2021-08-10 14:25] LABS: Albumin, Blood 1.3 g/dL (3.4-5.0); Anion Gap 6 mmol/L (6-16); Blood Urea Nitrogen 7 mg/dL (8-24); Bun/Creatinine Ratio 14.6 (12.0-20.0); CO2, Blood 28 mmol/L (21-32); Calcium, Blood 6.9 mg/dL (8.5-10.1); Chloride, Blood 100 mmol/L (98-108); Creatinine, Blood 0.48 mg/dL (0.60-1.20); Glomerular Filtration Rate >60 (60-); Glucose, Blood 407 mg/dL (70-99); Phosphorus, Blood 3.7 mg/dL (2.5-4.9); Potassium, Blood 3.4 mmol/L (3.5-5.5); Sodium, Blood 134 mmol/L (136-145)
--- NOTE | 2021-08-10 15:38 | NUR ---
OSTOMY APPLIANCE CHANGED SKIN AROUND OSTOMY IS EXCORIATED. OSTOMY BEGAN LEAKING. SKIN CLEANSED WITH WOUND CLEANSER. BARRIER FILM APPLIED, OSTOMY POWDER APPLIED AND BARRIER FILM REAPPLIED TO SEAL POWDER. EXUDERM LP APPLIED AROUND OSTOMY TO PROTECT SKIN. OSTOMY PASTE APPLIED TO BUILD UP STOMA, AND OSTOMY WAFFER AND APPLIANCE APPLIED. WILL CONTINUE TO MONITOR.
--- NOTE | 2021-08-10 18:44 | NUR ---
SHIFT SUMMARY PT CONTINUES TO HAVE HIGH OUTPUT FROM HIS OSTOMY. OSTOMY APPLIANCE CHANGED X2 THIS SHIFT, IT BEGAN LEAKING AFTER FIRST CHANGE. PT IS A 1 ASSIST WITH GAIT BELT AND WALKER WHEN OOB. PT USING URINAL. PT TOLERATING CLEAR LIQUIDS. WILL MONITOR UNTIL REPORT TO ALECIA RASMUSSEN.
[2021-08-11 05:29] LABS: Anion Gap 4 mmol/L (6-16); Blood Urea Nitrogen 8 mg/dL (8-24); Bun/Creatinine Ratio 16.6 (12.0-20.0); CO2, Blood 32 mmol/L (21-32); Calcium, Blood 7.1 mg/dL (8.5-10.1); Chloride, Blood 105 mmol/L (98-108); Creatinine, Blood 0.48 mg/dL (0.60-1.20); Glomerular Filtration Rate >60 (60-); Glucose, Blood 223 mg/dL (70-99); Phosphorus, Blood 2.4 mg/dL (2.5-4.9); Potassium, Blood 2.3 mmol/L (3.5-5.5); Sodium, Blood 141 mmol/L (136-145)
--- NOTE | 2021-08-11 06:29 | NUR ---
PT IS A/OX3. HX OF DEVELOPMENTAL DELAY. IS ABLE TO MAKE HIS NEEDS KNOWN. VERY PLEASANT AND IN GOOD SPIRITS. TOLERATING CL DIET WELL. ABD SOFT, NONTENDER. DENIED ANY N/V. OSTOMY APPLIANCE INTACT, DRAINING DARK GREEN/BROWN EFFLUENT. MIDLINE INCISION DRSG IS CDI. TELE: SR. DENIED ANY PALPITATIONS, CHEST PAIN/PRESSURE. RUE POWERGLIDE PATENT. RFA PIV PATENT.
[2021-08-11 20:28] LABS: Phosphorus, Blood 2.4 mg/dL (2.5-4.9); Potassium, Blood 3.2 mmol/L (3.5-5.5)
[2021-08-12 05:17] LABS: BASOPHILS ABSOLUTE AUTO 0.02 K/mm3 (0.00-0.23); BASOPHILS PERCENT AUTO 0 % (0-2); EOSINOPHILS ABSOLUTE AUTO 0.09 K/mm3 (0.00-0.68); EOSINOPHILS PERCENT AUTO 1 % (0-6); Hematocrit 34.5 % (37.0-53.0); Hemoglobin 11.5 g/dL (13.5-17.5); IMMATURE GRAN ABSOLUTE AUTO 0.14 K/mm3 (0.00-0.10); IMMATURE GRAN PERCENT AUTO 1 % (0-1); LYMPHOCYTES ABSOLUTE AUTO 1.64 K/mm3 (0.84-5.20); LYMPHOCYTES PERCENT AUTO 14 % (21-46); MONOCYTES ABSOLUTE AUTO 1.07 K/mm3 (0.16-1.47); MONOCYTES PERCENT AUTO 9 % (4-13); Mean Corpuscular HGB 30.9 pg (26.0-34.0); Mean Corpuscular HGB Conc 33.3 g/dL (31.5-36.5); Mean Corpuscular Volume 93 fL (80-100); Mean Platelet Volume 10.2 fL (9.1-12.4); NEUTROPHILS ABSOLUTE AUTO 8.89 K/mm3 (1.96-9.15); NEUTROPHILS PERCENT AUTO 75 % (41-73); Platelet Count 203 K/mm3 (150-400); RDW Coefficient Variation 12.5 % (11.7-14.2); RDW Standard Deviation 42.2 fL (35.1-46.3); Red Blood Cell Count 3.72 M/mm3 (4.30-5.90); White Blood Cell Count 11.85 K/mm3 (4.00-11.30)
[2021-08-12 05:43] LABS: Anion Gap 6 mmol/L (6-16); Blood Urea Nitrogen 6 mg/dL (8-24); Bun/Creatinine Ratio 12.3 (12.0-20.0); CO2, Blood 28 mmol/L (21-32); Calcium, Blood 7.3 mg/dL (8.5-10.1); Chloride, Blood 107 mmol/L (98-108); Creatinine, Blood 0.49 mg/dL (0.60-1.20); Glomerular Filtration Rate >60 (60-); Glucose, Blood 224 mg/dL (70-99); Magnesium, Blood 1.8 mg/dL (1.6-2.4); Sodium, Blood 141 mmol/L (136-145)
--- NOTE | 2021-08-12 06:36 | NUR ---
PT IS A/OX3. ABLE TO MAKE HIS NEEDS KNOWN. NO EVENTS DURING THE NIGHT. IN GOOD SPIRITS, PLEASANT AND COOPERATIVE WITH STAFF AND HIS CARE. DENIED ANY PAIN. TELE: SR. RA, CBS, I/S AT BEDSIDE. RUE POWERGLIDE PATENT. PIV RFA PATENT. VOIDING WELL, USES URINAL. OSTOMY APPLIANCE INTACT, PUTTING OUT LIQUID DARK GREEN/BROWN EFFLUENT.
--- NOTE | 2021-08-12 11:02 | NUR ---
Discussed choosing refined grains and cooked/peeled fruits and vegetables initially. Discussed potential causes of blockages, odor, and stool discoloration. Recommended chewable multivitamin and liquid/chewable calcium supplement. Pt reported adequate understanding.
[2021-08-12 13:12] LABS: SARS-Cov-2 (COVID-19) PCR, MMC NEGATIVE (NEGATIVE)
[2021-08-12] MEDS ORDERED: ACET325 PO (16:12)
[2021-08-12] MEDS ORDERED: ALBU2.5V5 INH (16:13)
[2021-08-12] MEDS ORDERED: CRANBERRY450 M1 PO (16:14)
[2021-08-12] MEDS ORDERED: HUMULIN R100 UNIT/2 IM (16:19)
[2021-08-12] MEDS ORDERED: PROM25 PO (16:20)
[2021-08-12] MEDS ORDERED: K-Phos Origina500 MG PO (16:20)
[2021-08-12] MEDS ORDERED: CALYPXO HP CRE113 GM TOP (16:20)
--- NOTE | 2021-08-12 17:26 | NUR ---
DISCHARGE PAT[facility] POWERGLIDE IV REMOVED, ALL BELONGINGS PACKED AND SENT WITH PATIENT. COLOSTOMY SUPPLIES SENT WITH TRANSPORT WELL. PATIENT TAKEN VIA WHEELCHAIR WITH ASSISTANCE FROM EMS
== END 2021-08-12 15:45 | DRG 853 ==
LOC: ER 14:22 → MEDS 14:23 → SURS 17:55 → MEDS 17:55 → SURS 08-03 12:35
PROVIDERS: Emergency Medicine; Family Medicine; Internal Medicine; Surgery; ADMIT Internal Medicine
PROC: 0D1M0Z4 Bypass Descending Colon to Cutaneous, Open Approach (ICD-10-PCS; 2021-08-03)
PROC: 0DBN0ZZ Excision of Sigmoid Colon, Open Approach (ICD-10-PCS; principal; 2021-08-03 11:00)
DX: A41.9 Sepsis, unspecified organism (principal); J18.9 Pneumonia, unspecified organism; J69.0 Pneumonitis due to inhalation of food and vomit; N17.9 Acute kidney failure, unspecified; E87.0 Hyperosmolality and hypernatremia; E87.2 Acidosis; I82.612 Acute embolism and thrombosis of superficial veins of left upper extremity; K56.699 Other intestinal obstruction unspecified as to partial versus complete obstruction; C18.7 Malignant neoplasm of sigmoid colon; C78.6 Secondary malignant neoplasm of retroperitoneum and peritoneum; E11.65 Type 2 diabetes mellitus with hyperglycemia; R09.02 Hypoxemia; Z87.891 Personal history of nicotine dependence; Z20.822 Contact with and (suspected) exposure to COVID-19; E86.0 Dehydration; M25.511 Pain in right shoulder; E87.6 Hypokalemia; E83.41 Hypermagnesemia; E83.39 Other disorders of phosphorus metabolism; R94.31 Abnormal electrocardiogram [ECG] [EKG]; E83.51 Hypocalcemia
CPT/HCPCS: 0202U; 36415; 71046; 71260; 74022; 74176; 80048; 80053; 80069; 81001; 82947; 83036; 83605; 83735; 83880; 84100; 84132; 84145; 84478; 84484; 84550; 85025; 85379; 85651; 86140; 88307; 92526; 92610; 93005; 93010; 93971; 94640; 94762; 96365; 97110; 97116; 97162; 97165; 97530; 97535; 99285-25; A9270; C1751; J0330; J0456; J0696; J0780; J1100; J1650; J1815; J2250; J2270; J2370; J2405; J2704; J3010; J3411; J3480; J7030; J7042; J7050; J7060; J7120; Q9967; U0004

== ENCOUNTER → 2021-09-07 | Outpatient (CLI) | payer OTHER ==
[~2021-09-07] MED LIST: ACET325 PO; ALBU2.5V5 INH; CALYPXO HP CRE113 GM TOP; CRANBERRY450 M1 PO; HUMULIN R100 UNIT/2 IM; K-Phos Origina500 MG PO; PROM25 PO
[2021-09-07 13:44] LABS: Alanine Aminotransfer (ALT/SGP 23 U/L (12-78); Albumin, Blood 2.7 g/dL (3.4-5.0); Albumin/Globulin Ratio 0.6 (0.8-1.8); Alk Phos 104 U/L (50-136); Anion Gap 3 mmol/L (6-16); Aspartate Aminotrans (AST/SGOT 14 U/L (12-37); Bilirubin, Total 0.4 mg/dL (0.1-1.0); Blood Urea Nitrogen 14 mg/dL (8-24); Bun/Creatinine Ratio 23.7 (12.0-20.0); CHOL/HDL RATIO 4.1; CO2, Blood 31 mmol/L (21-32); Calcium, Blood 8.9 mg/dL (8.5-10.1); Chloride, Blood 104 mmol/L (98-108); Cholesterol 164 mg/dL (50-200); Creatinine, Blood 0.59 mg/dL (0.60-1.20); Globulin, Blood 4.6 g/dL (2.2-4.0); Glomerular Filtration Rate >60 (60-); Glucose, Blood 205 mg/dL (70-99); HDL Cholesterol 40 mg/dL (>39); LDL/HDL RATIO 2.6; Low Density Lipoprotein Chol 103 mg/dL (0-110); Potassium, Blood 3.9 mmol/L (3.5-5.5); Sodium, Blood 138 mmol/L (136-145); Total Protein, Blood 7.3 g/dL (6.4-8.2); Triglycerides 104 mg/dL (30-160); Very Low Density Lipoprot Chol 20 mg/dL (6-32)
[2021-09-07 13:50] LABS: BASOPHILS ABSOLUTE AUTO 0.04 K/mm3 (0.00-0.23); BASOPHILS PERCENT AUTO 0 % (0-2); EOSINOPHILS ABSOLUTE AUTO 0.08 K/mm3 (0.00-0.68); EOSINOPHILS PERCENT AUTO 1 % (0-6); Hematocrit 40.4 % (37.0-53.0); Hemoglobin 13.1 g/dL (13.5-17.5); IMMATURE GRAN ABSOLUTE AUTO 0.04 K/mm3 (0.00-0.10); IMMATURE GRAN PERCENT AUTO 0 % (0-1); LYMPHOCYTES ABSOLUTE AUTO 1.63 K/mm3 (0.84-5.20); LYMPHOCYTES PERCENT AUTO 18 % (21-46); MONOCYTES ABSOLUTE AUTO 0.65 K/mm3 (0.16-1.47); MONOCYTES PERCENT AUTO 7 % (4-13); Mean Corpuscular HGB Conc 32.4 g/dL (31.5-36.5); Mean Corpuscular Volume 96 fL (80-100); Mean Platelet Volume 10.6 fL (9.1-12.4); NEUTROPHILS ABSOLUTE AUTO 6.64 K/mm3 (1.96-9.15); NEUTROPHILS PERCENT AUTO 73 % (41-73); Platelet Count 219 K/mm3 (150-400); RDW Coefficient Variation 12.5 % (11.7-14.2); RDW Standard Deviation 43.7 fL (35.1-46.3); Red Blood Cell Count 4.22 M/mm3 (4.30-5.90); White Blood Cell Count 9.08 K/mm3 (4.00-11.30)
== END | disposition home or self-care (01) ==
LOC: LAB SHORT 10:50
PROVIDERS: Nurse Practitioner
DX: Z13.6 Encounter for screening for cardiovascular disorders (principal); E11.65 Type 2 diabetes mellitus with hyperglycemia; E83.42 Hypomagnesemia
CPT/HCPCS: 80053; 80061; 83036; 83735; 85025

== ENCOUNTER 2021-10-06 09:27 | Day surgery (SDC) | payer OTHER ==
--- NOTE | 2021-10-06 10:39 | NUR ---
patient's procedure was cancelled, due to patient eating breakfast.
== END 2021-10-06 10:42 | disposition home or self-care (01) ==
LOC: ORSCMMR 09:27 → ORD 10:30 → ORSCMMR 10:30
DX: C18.7 Malignant neoplasm of sigmoid colon (principal); Z53.9 Procedure and treatment not carried out, unspecified reason

== ENCOUNTER 2021-10-07 08:18 | Day surgery (SDC) | payer OTHER ==
[~2021-10-07] VITALS: Ht 170.2 cm; Wt 67.3 kg
--- NOTE | 2021-10-07 13:45 | NUR ---
Ambulatory in Day Surgery. History, Chart, Medications and Allergies reviewed before start of procedure. Lungs clear T/O to Auscultation. Patient confirms NPO status and agrees with scheduled surgery. Pre-Op teaching done. Pt verbalizes understanding. PT REPORTS WANTING TO GET A RIDE HOME FROM [facility] FOR RIDE HOME, DISCUSSED WITH SYSTEMS PROGRAMMER ANALYST.
--- NOTE | 2021-10-07 16:53 | NUR ---
CALLED SPECIAL ASSETS OFFICER CASSIE DO RN IN REGARDS TO PATIENT NOT HAVING A RIDE HOME. ATTEMPTED TO CALL PATIENT'S BROTHER BUT NOT ANSWER. PER PATIENT, REQUESTED FOR [facility] TO TAKE HOME. WHEN CALLED, THEY INFORMED ME THAT PATIENT IS SENT UP FOR PRE-PAYMENT. CALLED BACK TO SPECIAL ASSETS OFFICER TO INFORM ON PATIENTS DISCHARGE STATUS. PER SPECIAL ASSETS OFFICER, AUTHORIZED FOR [facility] TO PAY FOR PATIENT TO GET RIDE HOME FROM [facility]. CALLED AMBULANCE SERVICE TO SET UP RIDE HOME. Patient up to Ambulate independently. Gait steady. Discharge instructions reviewed with patient. Patient verbalizes understanding. Copy given to patient to take home. Dressing to procedure site clean, dry, intact with no visible drainage, swelling, erythema or bruising noted. Ride home has been arranged with [facility]. Discharge to their services at 1630.
== END 2021-10-07 16:30 | disposition home or self-care (01) ==
LOC: ORSCMMR 08:18 → ORD 10:00 → ORSCMMR 10:00
PROVIDERS: Surgery
PROC: B543ZZA Ultrasonography of Right Jugular Veins, Guidance (ICD-10-PCS; principal; 2021-10-07 12:30)
PROC: 05HM33Z Insertion of Infusion Device into Right Internal Jugular Vein, Percutaneous Approach (ICD-10-PCS; principal; 2021-10-07 12:30)
DX: C18.7 Malignant neoplasm of sigmoid colon (principal); E11.9 Type 2 diabetes mellitus without complications; Z79.4 Long term (current) use of insulin; K21.9 Gastro-esophageal reflux disease without esophagitis; Z79.899 Other long term (current) drug therapy
CPT/HCPCS: 77001; 82947; C1788; J0690; J1100; J1642; J2250; J2405; J2704; J3010; J7120

== ENCOUNTER → 2021-10-17 | Outpatient (CLI) | payer OTHER ==
[2021-10-17 15:11] LABS: BASOPHILS ABSOLUTE AUTO 0.04 K/mm3 (0.00-0.23); BASOPHILS PERCENT AUTO 0 % (0-2); EOSINOPHILS ABSOLUTE AUTO 0.06 K/mm3 (0.00-0.68); EOSINOPHILS PERCENT AUTO 1 % (0-6); Hematocrit 49.2 % (37.0-53.0); Hemoglobin 16.5 g/dL (13.5-17.5); IMMATURE GRAN ABSOLUTE AUTO 0.06 K/mm3 (0.00-0.10); IMMATURE GRAN PERCENT AUTO 1 % (0-1); LYMPHOCYTES ABSOLUTE AUTO 2.25 K/mm3 (0.84-5.20); LYMPHOCYTES PERCENT AUTO 24 % (21-46); MONOCYTES ABSOLUTE AUTO 0.78 K/mm3 (0.16-1.47); MONOCYTES PERCENT AUTO 8 % (4-13); Mean Corpuscular HGB 31.2 pg (26.0-34.0); Mean Corpuscular HGB Conc 33.5 g/dL (31.5-36.5); Mean Corpuscular Volume 93 fL (80-100); NEUTROPHILS ABSOLUTE AUTO 6.06 K/mm3 (1.96-9.15); NEUTROPHILS PERCENT AUTO 66 % (41-73); RDW Coefficient Variation 11.8 % (11.7-14.2); RDW Standard Deviation 40.6 fL (35.1-46.3); Red Blood Cell Count 5.29 M/mm3 (4.30-5.90); White Blood Cell Count 9.25 K/mm3 (4.00-11.30)
[2021-10-17 15:14] LABS: Mean Platelet Volume 10.8 fL (9.1-12.4); Platelet Count 134 K/mm3 (150-400)
[2021-10-17 15:18] LABS: Alanine Aminotransfer (ALT/SGP 16 U/L (12-78); Albumin, Blood 3.1 g/dL (3.4-5.0); Albumin/Globulin Ratio 0.7 (0.8-1.8); Alk Phos 89 U/L (50-136); Anion Gap 6 mmol/L (6-16); Aspartate Aminotrans (AST/SGOT 10 U/L (12-37); Bilirubin, Total 0.3 mg/dL (0.1-1.0); Blood Urea Nitrogen 15 mg/dL (8-24); Bun/Creatinine Ratio 27.5 (12.0-20.0); CO2, Blood 27 mmol/L (21-32); Calcium, Blood 8.8 mg/dL (8.5-10.1); Chloride, Blood 106 mmol/L (98-108); Creatinine, Blood 0.55 mg/dL (0.60-1.20); Globulin, Blood 4.4 g/dL (2.2-4.0); Glomerular Filtration Rate >60 (60-); Glucose, Blood 155 mg/dL (70-99); Potassium, Blood 4.6 mmol/L (3.5-5.5); Sodium, Blood 139 mmol/L (136-145); Total Protein, Blood 7.5 g/dL (6.4-8.2)
== END | disposition home or self-care (01) ==
LOC: LAB SHORT 14:52
PROVIDERS: Internal Medicine Hematology & Oncology
DX: C18.9 Malignant neoplasm of colon, unspecified (principal)
CPT/HCPCS: 80053; 85025

== ENCOUNTER → 2021-12-01 | Outpatient (CLI) | payer OTHER ==
[2021-12-01 15:28] LABS: BASOPHILS ABSOLUTE AUTO 0.05 K/mm3 (0.00-0.23); BASOPHILS PERCENT AUTO 0 % (0-2); EOSINOPHILS ABSOLUTE AUTO 0.04 K/mm3 (0.00-0.68); EOSINOPHILS PERCENT AUTO 0 % (0-6); Hematocrit 47.7 % (37.0-53.0); Hemoglobin 15.7 g/dL (13.5-17.5); IMMATURE GRAN ABSOLUTE AUTO 0.42 K/mm3 (0.00-0.10); IMMATURE GRAN PERCENT AUTO 1 % (0-1); LYMPHOCYTES ABSOLUTE AUTO 0.94 K/mm3 (0.84-5.20); LYMPHOCYTES PERCENT AUTO 3 % (21-46); MONOCYTES ABSOLUTE AUTO 3.38 K/mm3 (0.16-1.47); MONOCYTES PERCENT AUTO 9 % (4-13); Mean Corpuscular HGB 30.4 pg (26.0-34.0); Mean Corpuscular HGB Conc 32.9 g/dL (31.5-36.5); Mean Corpuscular Volume 92 fL (80-100); Mean Platelet Volume 9.8 fL (9.1-12.4); NEUTROPHILS ABSOLUTE AUTO 31.28 K/mm3 (1.96-9.15); NEUTROPHILS PERCENT AUTO 87 % (41-73); Platelet Count 135 K/mm3 (150-400); RDW Coefficient Variation 13.2 % (11.7-14.2); RDW Standard Deviation 43.8 fL (35.1-46.3); Red Blood Cell Count 5.17 M/mm3 (4.30-5.90); White Blood Cell Count 36.11 K/mm3 (4.00-11.30)
[2021-12-01 15:45] LABS: Alanine Aminotransfer (ALT/SGP 19 U/L (12-78); Albumin/Globulin Ratio 0.6 (0.8-1.8); Alk Phos 166 U/L (50-136); Anion Gap 14 mmol/L (6-16); Aspartate Aminotrans (AST/SGOT 18 U/L (12-37); Bilirubin, Total 0.6 mg/dL (0.1-1.0); Blood Urea Nitrogen 31 mg/dL (8-24); Bun/Creatinine Ratio 35.4 (12.0-20.0); CO2, Blood 27 mmol/L (21-32); Calcium, Blood 9.6 mg/dL (8.5-10.1); Chloride, Blood 95 mmol/L (98-108); Creatinine, Blood 0.88 mg/dL (0.60-1.20); Glomerular Filtration Rate >60 (60-); Glucose, Blood 409 mg/dL (70-99); Potassium, Blood 3.7 mmol/L (3.5-5.5); Sodium, Blood 136 mmol/L (136-145)
== END | disposition home or self-care (01) ==
LOC: LAB SHORT 14:30
PROVIDERS: Nurse Practitioner
DX: C18.9 Malignant neoplasm of colon, unspecified (principal)
CPT/HCPCS: 80053; 85025

== ENCOUNTER → 2021-12-19 | Outpatient (CLI) | payer OTHER ==
[2021-12-19 14:05] LABS: BASOPHILS ABSOLUTE AUTO 0.01 K/mm3 (0.00-0.23); BASOPHILS PERCENT AUTO 0 % (0-2); EOSINOPHILS ABSOLUTE AUTO 0.01 K/mm3 (0.00-0.68); EOSINOPHILS PERCENT AUTO 0 % (0-6); Hematocrit 39.7 % (37.0-53.0); Hemoglobin 12.9 g/dL (13.5-17.5); IMMATURE GRAN ABSOLUTE AUTO 0.09 K/mm3 (0.00-0.10); IMMATURE GRAN PERCENT AUTO 1 % (0-1); LYMPHOCYTES ABSOLUTE AUTO 0.79 K/mm3 (0.84-5.20); LYMPHOCYTES PERCENT AUTO 12 % (21-46); MONOCYTES ABSOLUTE AUTO 0.73 K/mm3 (0.16-1.47); MONOCYTES PERCENT AUTO 11 % (4-13); Mean Corpuscular HGB 29.7 pg (26.0-34.0); Mean Corpuscular HGB Conc 32.5 g/dL (31.5-36.5); Mean Corpuscular Volume 91 fL (80-100); Mean Platelet Volume 10.2 fL (9.1-12.4); NEUTROPHILS ABSOLUTE AUTO 5.25 K/mm3 (1.96-9.15); NEUTROPHILS PERCENT AUTO 76 % (41-73); Platelet Count 136 K/mm3 (150-400); RDW Coefficient Variation 13.2 % (11.7-14.2); RDW Standard Deviation 44.6 fL (35.1-46.3); Red Blood Cell Count 4.35 M/mm3 (4.30-5.90); White Blood Cell Count 6.88 K/mm3 (4.00-11.30)
[2021-12-19 14:54] LABS: Alanine Aminotransfer (ALT/SGP 20 U/L (12-78); Albumin, Blood 2.2 g/dL (3.4-5.0); Albumin/Globulin Ratio 0.5 (0.8-1.8); Alk Phos 138 U/L (50-136); Anion Gap 7 mmol/L (6-16); Aspartate Aminotrans (AST/SGOT 21 U/L (12-37); Bilirubin, Total 0.4 mg/dL (0.1-1.0); Blood Urea Nitrogen 18 mg/dL (8-24); Bun/Creatinine Ratio 25.5 (12.0-20.0); CO2, Blood 27 mmol/L (21-32); Calcium, Blood 8.8 mg/dL (8.5-10.1); Chloride, Blood 100 mmol/L (98-108); Creatinine, Blood 0.71 mg/dL (0.60-1.20); Globulin, Blood 4.2 g/dL (2.2-4.0); Glomerular Filtration Rate >60 (60-); Glucose, Blood 198 mg/dL (70-99); Potassium, Blood 4.5 mmol/L (3.5-5.5); Sodium, Blood 134 mmol/L (136-145); Total Protein, Blood 6.4 g/dL (6.4-8.2)
== END ==
LOC: LAB SHORT 12:30 → LAB 12:30
PROVIDERS: Nurse Practitioner
DX: C18.9 Malignant neoplasm of colon, unspecified (principal); K83.1 Obstruction of bile duct
CPT/HCPCS: 80053; 85025

== ENCOUNTER 2021-12-22 13:38 | Inpatient (IN) | payer OTHER ==
[~2021-12-22] VITALS: Ht 175.3 cm; Wt 62.5 kg
[2021-12-22 14:23] LABS: Hematocrit 42.3 % (37.0-53.0); Hemoglobin 13.9 g/dL (13.5-17.5); Mean Corpuscular HGB 29.8 pg (26.0-34.0); Mean Corpuscular HGB Conc 32.9 g/dL (31.5-36.5); Mean Corpuscular Volume 91 fL (80-100); Mean Platelet Volume 9.9 fL (9.1-12.4); Platelet Count 146 K/mm3 (150-400); RDW Coefficient Variation 13.2 % (11.7-14.2); RDW Standard Deviation 44.2 fL (35.1-46.3); Red Blood Cell Count 4.66 M/mm3 (4.30-5.90); White Blood Cell Count 7.77 K/mm3 (4.00-11.30)
[2021-12-22 14:46] LABS: Alanine Aminotransfer (ALT/SGP 18 U/L (12-78); Albumin, Blood 2.5 g/dL (3.4-5.0); Albumin/Globulin Ratio 0.6 (0.8-1.8); Alk Phos 144 U/L (50-136); Anion Gap 8 mmol/L (6-16); Aspartate Aminotrans (AST/SGOT 13 U/L (12-37); Bilirubin, Total 0.7 mg/dL (0.1-1.0); Blood Urea Nitrogen 22 mg/dL (8-24); Bun/Creatinine Ratio 36.5 (12.0-20.0); CO2, Blood 27 mmol/L (21-32); Calcium, Blood 8.6 mg/dL (8.5-10.1); Chloride, Blood 102 mmol/L (98-108); Globulin, Blood 4.3 g/dL (2.2-4.0); Glomerular Filtration Rate >60 (60-); Glucose, Blood 199 mg/dL (70-99); Potassium, Blood 4.4 mmol/L (3.5-5.5); Sodium, Blood 137 mmol/L (136-145); Total Protein, Blood 6.8 g/dL (6.4-8.2)
[2021-12-22 15:30] LABS: BAND PERCENT MAN 14 % (0-8); BASOPHILS PERCENT MAN 0 % (0-2); EOSINOPHILS PERCENT MAN 0 % (0-6); LYMPHOCYTES ABSOLUTE MAN 0.62 K/mm3 (0.84-5.20); LYMPHOCYTES PERCENT MAN 8 % (21-46); MONOCYTES ABSOLUTE MAN 0.23 K/mm3 (0.16-1.47); MONOCYTES PERCENT MAN 3 % (4-13); NEUTROPHILS ABSOLUTE MAN 6.91 K/mm3 (1.96-9.15); SEG NEUTROPHILS PERCENT MAN 75 % (41-73); TOTAL CELLS COUNTED 100
[2021-12-22 15:46] LABS: International Normalized Ratio 1.04; Prothrombin Time Results 10.9 Sec (9.7-11.5)
--- NOTE | 2021-12-22 20:37 | NUR ---
PT ADMITTED TO FLOOR VIA GURNEY FROM ER - PT WAS ABLE TO STAND AND TRANSFER HIMSELF TO PCU BED. PT HAS EMESIS BAG WITH SMALL - APPX 1 TABLESPOON OF BLOODY SPUTUM, THIN SECRETIONS. PT HAS A HISTORY OF COLON CANCER AND REPORTS HE HAS RECEIVED CHEMO. PT HAS A NON ACCESSED MEDIPORT TO HIS RIGHT CHEST WALL. IV TO LEFT AC - FLUSHED WNL. PT HAS A COLOSTOMY BAG AND REPORTS HE IS CURRENTLY BEING FOLLOWED BY [facility] , AND HE REPORTS THE COLOSTOMY BAG WAS CHANGED YESTERDAY. PT REPORTS HE FOLLOWS WITH PODIATRY, WITH DR. ZURITA, AND REPORTS HE SAW DR. ZURITA YESTERDAY, WHERE HE REPORTED HIS WOUNDS WERE DRESSED YESTERDAY AT THIS VISIT TO HIS FOOT WOUNDS/TOES. PT PROVIDED A SPECIMEN CUP AND ASKED PT FOR A FRESH SPUTUM SAMPLE WHEN HE IS ABLE TO PROVIDE THIS. REVIEWED CALL LIGHT, PAS STOCKINGS, TELEPHONE, ACTIVITY, AND ORIENTED TO ROOM. PT REQUESTS WARM WATER/JELLO FOR TAKINGS HIS PILLS. BED IN LOW POSITION, WATER AT BEDSIDE, BED ALARM ON FOR PT SAFETY. URINAL AT BEDSIDE.
[2021-12-22] MEDS ORDERED: DEXA4 (20:57)
--- NOTE | 2021-12-23 02:52 | NUR ---
BLOODY SPUTUM SAMPLE SENT TO LAB - APPX 1 TEASPOON. APPROXIMATE TOTAL OF 1 TABLESPOON OF THIN BLOODY SECRETIONS COUGHED UP. PT HAS BEEN SLEEPING THE LAST SEVERAL HOURS. UPON ADMIT TO PCU, PT HAD BLOODY SPUTUM, BUT NONE FOR THE LAST SEVERAL HOURS. PT USING EMESIS BASIS FOR SPUTUM. COOL WASHCLOTH PROVIDED. NO OTHER REQUESTS AT THIS TIME. PT RESTING IN HIGH SEMI FOWLERS POSITION IN BED.
[2021-12-23 04:01] LABS: Hemoglobin 11.2 g/dL (13.5-17.5); Mean Corpuscular HGB 29.4 pg (26.0-34.0); Mean Corpuscular Volume 92 fL (80-100); Mean Platelet Volume 10.3 fL (9.1-12.4); Platelet Count 100 K/mm3 (150-400); RDW Coefficient Variation 13.2 % (11.7-14.2); RDW Standard Deviation 44.8 fL (35.1-46.3); Red Blood Cell Count 3.81 M/mm3 (4.30-5.90); White Blood Cell Count 4.94 K/mm3 (4.00-11.30)
[2021-12-23 04:18] LABS: Alanine Aminotransfer (ALT/SGP 13 U/L (12-78); Albumin, Blood 1.8 g/dL (3.4-5.0); Albumin/Globulin Ratio 0.5 (0.8-1.8); Alk Phos 104 U/L (50-136); Anion Gap 3 mmol/L (6-16); Aspartate Aminotrans (AST/SGOT 7 U/L (12-37); Bilirubin, Total 0.5 mg/dL (0.1-1.0); Blood Urea Nitrogen 15 mg/dL (8-24); Bun/Creatinine Ratio 26.9 (12.0-20.0); CO2, Blood 29 mmol/L (21-32); Calcium, Blood 7.8 mg/dL (8.5-10.1); Chloride, Blood 106 mmol/L (98-108); Creatinine, Blood 0.56 mg/dL (0.60-1.20); Globulin, Blood 3.3 g/dL (2.2-4.0); Glomerular Filtration Rate >60 (60-); Glucose, Blood 111 mg/dL (70-99); Sodium, Blood 138 mmol/L (136-145); Total Protein, Blood 5.1 g/dL (6.4-8.2)
[2021-12-23 04:32] LABS: BAND PERCENT MAN 13 % (0-8); BASOPHILS PERCENT MAN 0 % (0-2); EOSINOPHILS ABSOLUTE MAN 0.04 K/mm3 (0.00-0.68); EOSINOPHILS PERCENT MAN 1 % (0-6); LYMPHOCYTES ABSOLUTE MAN 0.24 K/mm3 (0.84-5.20); LYMPHOCYTES PERCENT MAN 5 % (21-46); METAMYELOCYTE ABSOLUTE MAN 0.04 K/mm3 (0.00-0.00); METAMYELOCYTE PERCENT MAN 1 % (0-0); MONOCYTES ABSOLUTE MAN 0.09 K/mm3 (0.16-1.47); MONOCYTES PERCENT MAN 2 % (4-13); NEUTROPHILS ABSOLUTE MAN 4.49 K/mm3 (1.96-9.15); SEG NEUTROPHILS PERCENT MAN 78 % (41-73); TOTAL CELLS COUNTED 100
--- NOTE | 2021-12-23 05:43 | NUR ---
SHIFT SUMMARY - NO ACUTE CHANGES SINCE ADMIT LAST NOC. PT CONTINUES WITH SMALL AMOUNTS OF BLOODY SPUTUM, APPX 3 TABLESPOONS THROUGHOUT THE NIGHT IN EMESIS BAG. PT REPORTS [facility] ON SERVICE, WITH A VISIT ON 12/21. PT ALSO REPORTS DR. ZURTIA, BUSINESS TECHNOLOGY TEACHER FOLLOWING HIM FOR TOE WOUNDS - PICTURES IN CHART. PT REPORTS A RECENT DIAGNOSIS IN WITH DIABETES. PT HAS A COLOSTOMY TO HIS LOWER LEFT ABDOMEN. MEDIPORT TO RIGHT CHEST WALL, CURRENTLY NOT ACCESSED, WITH REPORT OF CHEMO 4 DAYS PRIOR TO ADMIT, FOR COLON CANCER. WILL CONTINUE TO MONITOR UNTIL AM SHIFT CHANGE. PT HAS BEEN SLEEPING THROUGHOUT MOST OF THE NOC. PT REPORTS THIS AM HE "IS FEELING BETTER." CALL LIGHT WITHIN REACH. BED IN LOW POSITION.
--- NOTE | 2021-12-23 08:46 | NUR ---
Pt reports feeling a little better than yesterday, less pain in his chest. Reports hemoptysis, this morning ongoing. No respiratory distress. Able to carry on conversation without distress or dyspnea. Does have tachypnea, shallow breathing. Wearing oxygen at 2 l/min, spo2 94-95% at rest. mediport right chest wall with bandaid over it, unaccessed at this time. Pt is receiving ongoing chemotherapy with Dr. Hyde he reports, and states he had one 2 days ago. He is eating a clear liquid breakfast and expecting a swallow evaluation today for the aspiration pneumonia.
--- NOTE | 2021-12-23 09:22 | NUR ---
CORRECTION: PT STATES last chemo was 5 days ago
--- NOTE | 2021-12-23 09:24 | NUR ---
Pt assisted to side of bed, tolerated well. Then assisted to stand and pivot to chair. he was a little weak and required assistance minimally to stand from the bed, and verbal cues to get to the recliner chair. No increase in his respiratory effort, but did have more coughing with the activity. Dr.s Pang, Bird Quinn and med teena Rizzo were here rounding on the patient. AMERICO hose were placed due to edema of ankles, and lower legs. SCDs were leaving crease diaz in the legs, but edema was remaining in ankles.
--- NOTE | 2021-12-23 10:56 | NUR ---
Patient is sitting on a chair and alert. Patient immediately tells me about his medical conditions of colon cancer, diabetes and PNA. He tells me that he has been shocked by these diagnosis and has been very discouraged by the news. HE also tells me that he hears a voice that tells him, "You will make it through." He says that he is going with that voice. He shares about his very basic Episcopal beliefs and how he gains strength from his prayers and from the designs and patterns he sees in his head. I provide therapeutic listening, coloring materails, spiritual guidance and prayer. Patient responds well and shows signs of an increase in peace I will continue to remain available to patient and family.
--- NOTE | 2021-12-23 12:15 | NUR ---
Noted IV infiltration on the left antecubital space. Peripheral IV dc'd. Pt assisted back into bed, colostomy bag has also become unattached. Old bag removed, noted skin underneath on the right side is excoriated, presumably from stool contact with skin. Area was cleansed thoroughly, and skin prep applied, which pt stated stung briefly but then was painless. New colostomy bag and appliance were applied. Pwerglide placed in the right upper arm, IV fluid are restarted. Pt is sitting up , eating pureed lunch food.
--- NOTE | 2021-12-23 13:59 | NUR ---
Call from Lab for blood culture results. Dr. Quinn here in PCU at this time, spoke with him about them. Waiting on MRSA nares swab results now.
--- NOTE | 2021-12-23 15:30 | NUR ---
Wound dressings soiled with serosanginous drainage. Removed and toe wounds cleansed with skintegrity: 1st digits bilaterally, 2nd digit of right foot. Covered with non adherenet dressing and secured with kerlix and tape. AMERICO hose are still on. Pt reports no pain.
--- NOTE | 2021-12-23 18:48 | NUR ---
Pt was weaned from oxygen to room air today. Hemoptysis noted this morning, and continuing through the day, although is is product development technician in color now. Pt is self-mouth suctioning to remove secretions after coughing. Lung sounds are coarse throughout. He tolerated getting up to a recliner chair today, and sat up for about 2 hours. Denies pain. Appetite is very good, and after a swallow evaluation he was eating a pureed diet and drinking liquids while sitting upright. Voiding clear yellow urine into the urinal. Colostomy is putting out soft formed brown stool. Appliance was changed this morning. Skin on the right of the appliance is red and excoriated; Janes states that he has a hard time getting good seal all of the time on the appliance, and as happened today, stool was leaking out of that side and in contact with his skin. He did not notice it himself. Encouraged him to eat for healing and strength. He states that he doesn't like to eat too much at home because then his bowel movements are more frequent. He states that he really dislikes the colostomy. IV on the left arm infiltrated today, infusing NS at 150cc/hour. MIdline Powerglide Pro was placed on the right upper arm. Wounds to the toes were also redressed after noted this afternoon that they were soiled with serosanginous draininage, whereas this morning they were clean, dry and intact at the time of morning assessment. Dr. Quinn and medical student Matthias were present in the room and observed the toe wounds this afternoon when the dressings were removed. Sequential compression devices were replaced this morning with AMERICO hose before the pt got up to the chair, due to noted edema bilaterally on the lower extremities, ankles and feet. Edema increased this afternoon in the hands, and pt was encouraged to do active ROM movements of his hands and arms and to keep them elevated when at rest.
[2021-12-24 04:45] LABS: Hematocrit 30.9 % (37.0-53.0); Hemoglobin 10.2 g/dL (13.5-17.5); Mean Corpuscular Volume 91 fL (80-100); Mean Platelet Volume 10.1 fL (9.1-12.4); Platelet Count 77 K/mm3 (150-400); RDW Standard Deviation 43.3 fL (35.1-46.3); White Blood Cell Count 5.62 K/mm3 (4.00-11.30)
[2021-12-24 04:58] LABS: Anion Gap 4 mmol/L (6-16); Blood Urea Nitrogen 8 mg/dL (8-24); CO2, Blood 26 mmol/L (21-32); Calcium, Blood 7.4 mg/dL (8.5-10.1); Chloride, Blood 107 mmol/L (98-108); Creatinine, Blood 0.44 mg/dL (0.60-1.20); Glomerular Filtration Rate >60 (60-); Glucose, Blood 158 mg/dL (70-99); Potassium, Blood 3.8 mmol/L (3.5-5.5); Sodium, Blood 137 mmol/L (136-145)
[2021-12-24 05:06] LABS: BAND PERCENT MAN 25 % (0-8); BASOPHILS PERCENT MAN 0 % (0-2); EOSINOPHILS PERCENT MAN 0 % (0-6); LYMPHOCYTES ABSOLUTE MAN 0.33 K/mm3 (0.84-5.20); LYMPHOCYTES PERCENT MAN 6 % (21-46); METAMYELOCYTE ABSOLUTE MAN 0.05 K/mm3 (0.00-0.00); METAMYELOCYTE PERCENT MAN 1 % (0-0); MONOCYTES ABSOLUTE MAN 0.44 K/mm3 (0.16-1.47); MONOCYTES PERCENT MAN 8 % (4-13); NEUTROPHILS ABSOLUTE MAN 4.77 K/mm3 (1.96-9.15); SEG NEUTROPHILS PERCENT MAN 60 % (41-73); TOTAL CELLS COUNTED 100
--- NOTE | 2021-12-24 06:17 | NUR ---
NO ACUTE EVENTS OVERNIGHT. SEE EMR FOR PERTINENT ASSESSMENT DATA. PT REPORTS COUGH IS MUCH LESS FREQUENT COMPARED TO PREVIOUS DAYS. ONE EPISODE OF HEMOPTYSIS, WITH SPUTUM BURGUNDY IN COLOR. PT DENIES SORE THROAT OR IRRITATION. DOES ENDORSE "FEELING LIKE FOOD AND PILLS GET STUCK GOING DOWN" WHEN ATTEMPTING TO SWALLOW. ASPIRATION PRECAUTIONS IN PLACE. PO FOOD AND FLUID INTAKE RECOMMENDATIONS FOLLOWED. YANKAUER AND SUCTION TUBING CHANGED OUT. NOTED SMALL OPEN AREA TO RIGHT BUTTOCKS, APPEARS TO BE CHRONIC VERSUS ACUTE. NO DISCHARGE OR REDNESS NOTED. MEPILEX PLACED FOR PREVENTATIVE MEASURES.
--- NOTE | 2021-12-24 10:43 | NUR ---
Dr. Quinn here, rounding on the patient. Janes is leaning back in his recliner. Colostomy bag was emptied of soft brown stool. Voiding using urinal. Tolerating pureed diet very well; appetite has been excellent.
--- NOTE | 2021-12-24 12:01 | NUR ---
States that he has meals on wheels for his brothers, as well as [employer]. His brother Marcelino works for [employer] in [place], and brother Maged retired from the [employer]. He lives with his brothers.
--- NOTE | 2021-12-24 12:46 | NUR ---
Call to pt's brother Don to update him on the patient's condition and plan of treatment. He seemed to understand the information somewhat, but possible lack of complete comprehension; I asked if he had any questions, but he said that he did not. Updated him also on the visitor policy due to change on Sunday, and that he could come and see his brother between 7 am -7pm starting Sunday. He said he would like to come in then.
--- NOTE | 2021-12-24 13:06 | NUR ---
1200 Repositioned in the chair to be sitting upright for his lunch meal. 1305 PT was falling asleep while sitting up. Asked him if he would like to recline in the chair, so he was repositioned in a reclined position with his legs elevated at this time. He states that he is comfortable.
--- NOTE | 2021-12-24 15:28 | NUR ---
IV fluids stopped at this time at the 150cc/hour rate, decreased to KVO per new verbal orders from Dr. Quinn.
--- NOTE | 2021-12-24 16:18 | NUR ---
Blood cultures drawn from venous access, and Mediport right chest wall was accessed specifically for the blood draw per Dr. Quinn's orders. Heparin flush deaccess dose put into Mediport and then it was deaccessed. Pt is still actively receiving chemotherapy treatments from the cancer center.
--- NOTE | 2021-12-24 18:33 | NUR ---
Pt states that he is really tired. NOted sinus tachycardia 120 bpm while eating, still 117-118 bpm at rest. He was assisted to stand up, noted he is weaker than he was this morning and also mild dyspnea with the activity of walking a few steps from the chair to the bed, heart rate up to 125-130 briefly with activity, decreased down to 117bpm now that he is lying in bed, and he appears to be comfortable and no longer having shortness of breath. Requested that the light be turned off because he wants to "take a nap".
--- NOTE | 2021-12-24 21:13 | NUR ---
Assumed care of pt at 1900. Patient was sleeping in bed. A/Ox4 and very cooperative with care. Patient is a Q2 turn as he does not reposition self in bed. Denies any pain, CP/pressure. Generalized weakness noted t/o all extremities. Perrla with scleral yellowing. Maintaining above 92% on RA, LS clear on top and dim at bases. Continues to have moderate productive cough with red/brown sputum production. Sinus tach on tele. Yesterday was low 100's, now 110-120. Strong +2 pulses t/o. Trace edema ankles BL, hands have +1. Graduated compression stocking on ble up to the knee. Other than pulse, VSS. Colostomy appliance intact with brown/pasty output. Denies any N/V. Urinates in urinal clear/light yellow urine. Pale/dry skin. Excoriation to R on colostomy. R buttock has superficial cut. Eschar on both 1st digits of toes, with redness of the rest of the toes R>L. Will update as changes occur.
[2021-12-25 06:19] LABS: BASOPHILS ABSOLUTE AUTO 0.02 K/mm3 (0.00-0.23); BASOPHILS PERCENT AUTO 0 % (0-2); LYMPHOCYTES ABSOLUTE AUTO 0.59 K/mm3 (0.84-5.20); LYMPHOCYTES PERCENT AUTO 9 % (21-46); MONOCYTES ABSOLUTE AUTO 0.32 K/mm3 (0.16-1.47); MONOCYTES PERCENT AUTO 5 % (4-13); Mean Corpuscular HGB 29.9 pg (26.0-34.0); Mean Corpuscular HGB Conc 33.3 g/dL (31.5-36.5); Mean Corpuscular Volume 90 fL (80-100); Mean Platelet Volume 11.2 fL (9.1-12.4); Platelet Count 73 K/mm3 (150-400); RDW Coefficient Variation 12.9 % (11.7-14.2); RDW Standard Deviation 42.2 fL (35.1-46.3); Red Blood Cell Count 3.35 M/mm3 (4.30-5.90); White Blood Cell Count 6.84 K/mm3 (4.00-11.30)
[2021-12-25 06:20] LABS: EOSINOPHILS ABSOLUTE AUTO 0.02 K/mm3 (0.00-0.68); EOSINOPHILS PERCENT AUTO 0 % (0-6); IMMATURE GRAN ABSOLUTE AUTO 0.08 K/mm3 (0.00-0.10); IMMATURE GRAN PERCENT AUTO 1 % (0-1); NEUTROPHILS ABSOLUTE AUTO 5.81 K/mm3 (1.96-9.15); NEUTROPHILS PERCENT AUTO 85 % (41-73)
[2021-12-25 06:31] LABS: Anion Gap 5 mmol/L (6-16); Blood Urea Nitrogen 6 mg/dL (8-24); Bun/Creatinine Ratio 11.9 (12.0-20.0); CO2, Blood 26 mmol/L (21-32); Calcium, Blood 7.4 mg/dL (8.5-10.1); Chloride, Blood 108 mmol/L (98-108); Glomerular Filtration Rate >60 (60-); Glucose, Blood 154 mg/dL (70-99); Potassium, Blood 3.7 mmol/L (3.5-5.5); Sodium, Blood 139 mmol/L (136-145)
--- NOTE | 2021-12-25 16:48 | NUR ---
SHIFT SUMMARY PT ALERT AND ORIENTED. VS STABLE. O2 SATS REMAIN ABOVE 90% ON RA. HR ST. PT DENIES ANY PAIN. PT UP TO RECLINER MOST OF SHIFT. PT CONTINUES TO COUGH AND USES THE SUCTION TO CLEAR HIS MOUTH. PT ABLE TO VOID IN URINAL. WILL CONTINUE TO MONITOR AND REPORT TO ONCOMING RN
--- NOTE | 2021-12-26 03:25 | NUR ---
PATIENT TRANSFERRED FROM THE PCU. BLOOD CULTURES DONE WHICH RESULTED POSITIVE. BLOOD CULTURES WERE TAKEN FROM PT'S MEDIPORT AND OTHER AREAS OF SUSPECTED INFECTION. MD ALREADY AWARE OF POSITIVE CULTURES AND LUKEO ORDERED X3 PER DAY. MD NOT NOTIFIED RN CONSULTED WITH PHARMACY.
[2021-12-26 09:18] LABS: BASOPHILS ABSOLUTE AUTO 0.02 K/mm3 (0.00-0.23); BASOPHILS PERCENT AUTO 0 % (0-2); Hematocrit 28.8 % (37.0-53.0); Hemoglobin 9.5 g/dL (13.5-17.5); Mean Corpuscular HGB 30.2 pg (26.0-34.0); Mean Corpuscular Volume 91 fL (80-100); Mean Platelet Volume 10.5 fL (9.1-12.4); Platelet Count 69 K/mm3 (150-400); RDW Coefficient Variation 13.1 % (11.7-14.2); RDW Standard Deviation 43.6 fL (35.1-46.3); Red Blood Cell Count 3.15 M/mm3 (4.30-5.90); White Blood Cell Count 6.17 K/mm3 (4.00-11.30)
[2021-12-26 09:37] LABS: Anion Gap 4 mmol/L (6-16); Blood Urea Nitrogen 6 mg/dL (8-24); Bun/Creatinine Ratio 13.4 (12.0-20.0); CO2, Blood 26 mmol/L (21-32); Calcium, Blood 7.2 mg/dL (8.5-10.1); Chloride, Blood 107 mmol/L (98-108); Creatinine, Blood 0.45 mg/dL (0.60-1.20); Glomerular Filtration Rate >60 (60-); Glucose, Blood 201 mg/dL (70-99); Potassium, Blood 3.3 mmol/L (3.5-5.5); Sodium, Blood 137 mmol/L (136-145)
[2021-12-26 09:39] LABS: EOSINOPHILS ABSOLUTE AUTO 0.01 K/mm3 (0.00-0.68); EOSINOPHILS PERCENT AUTO 0 % (0-6); IMMATURE GRAN PERCENT AUTO 2 % (0-1); LYMPHOCYTES ABSOLUTE AUTO 0.58 K/mm3 (0.84-5.20); LYMPHOCYTES PERCENT AUTO 9 % (21-46); MONOCYTES ABSOLUTE AUTO 0.74 K/mm3 (0.16-1.47); MONOCYTES PERCENT AUTO 12 % (4-13); NEUTROPHILS ABSOLUTE AUTO 4.72 K/mm3 (1.96-9.15); NEUTROPHILS PERCENT AUTO 77 % (41-73)
[2021-12-26 09:44] LABS: Vancomycin, Trough 16.1 ug/mL (5.0-10.0)
--- NOTE | 2021-12-26 10:12 | NUR ---
LAB DRAW COMPLETED FROM [place] @ 0900. FLUSHED WITH 10 CC SALINE AFTERWARDS. TOLERATED WELL. @ 0919, TELEMETRY SINUS TACH 115.
--- NOTE | 2021-12-26 10:23 | NUR ---
VERIFIED WITH AKUA WELCH THAT VANCOMYCIN 1 GRAM IS OK TO ADMINISTER WITH VANC TROUGH OF 16.9. STATES IT'S IN THE THERAPEUTIC RANGE WHERE MD WANTS IT TO BE AND OK TO ADMINISTER.
--- NOTE | 2021-12-26 11:13 | NUR ---
AMBULATORY ANALYST NOTED THAT PATIENT'S PENIS TIP WAS COATED IN WHITE DRIED THICK DISCHARGE. PATIENT STATES HE HASN'T BEEN CLEANING IT IN A WHILE. AMBULATORY ANALYST'S GAVE HIM A BED BATH AND CLEANSED THIS AREA RETRACTING THE FORESKIN. PATIENT WAS GIVEN SUPPLIES TO BE ABLE TO RETRACT FORESKIN AND CLEAN IT WHEN VOIDING.
--- NOTE | 2021-12-26 12:36 | NUR ---
ATTEMPTED TO CALL CONSULT TO DR. ZURITA AT [phone]. NO ANSWER OR VOICEMAIL. WILL RETRY LATER.
--- NOTE | 2021-12-26 13:12 | NUR ---
NOTIFIED TONY AT DR. ZURITA'S OFFICE [phone] OF THE CONSULT.
--- NOTE | 2021-12-26 14:24 | NUR ---
REPORT GIVEN TO KAT GALLO RN IN DAYSURGERY AT 1400. PATIENT TRANSFERRED TO DSU VIA STRETCHER @ 1400.
--- NOTE | 2021-12-26 16:50 | NUR ---
PT BACK FROM DAY SURGERY FOR MEDIPORT REMOVAL, PT ASSISTED FROM THE GURNEY TO THE BED, PT AWAKE, ALERT AND ORIENTED, DENIES PAIN OR SOB, R CHEST WALL SITE WITH 2X2'S INTACT, NO DRAINAGE, ASSISTED PT WITH URINAL AND SIP OF WATER
--- NOTE | 2021-12-26 17:22 | NUR ---
SPOKE WITH DR. ZURITA ABOUT PODIATRY CONSULT. STATES HE WILL SEE THE PATIENT TOMORROW. WANTS TO GET A VASCULAR CONSULT DONE. VOICEMAIL LEFT FOR GAEL HAYES RN CHARGE NURSE TO SEE WHO IS STAVE HEWER FOR VASCULAR.
--- NOTE | 2021-12-26 17:33 | NUR ---
MESSAGE LEFT WITH JAYE AT [facility] AT [phone] FABIAN REGARDING CONSULT.
--- NOTE | 2021-12-26 18:41 | NUR ---
S/P R CHEST PORT A CATH REMOVAL TODAY. AAOX 4. AWAITING DIET TO BE DELIVERED POST SURGERY. TOLERATED MEDS WITH APPLESAUCE. CONTINUES ON IV ABX PER E-MAR. CONSULT CALLED IN TO DR. ZURITA AND MESSAGE LEFT FOR DR. FABIAN ALSO. NO C/O PAIN VOICED. REMAINS ON ROOM AIR WITH DROPLET PRECAUTIONS. REPORT WILL BE GIVEN TO ONCOMING SHIFT AT 1845.
--- NOTE | 2021-12-27 04:59 | NUR ---
PATIENT IS AN ALERT AND ORIENTED X4, PLEASANT AND COOPERATIVE WITH CARE. NO COMPLAINTS OF PAIN OR DISCOMFORT. VERY THICK MUSHY BROWN STOOL IN COLOSTOMY BAG. URINE CLEAR YELLOW FROM URINAL. RIGHT CHEST DRESSING CLEAN, DRY AND INTACT
--- NOTE | 2021-12-27 08:56 | NUR ---
@ 0830, POWERGLIDE R ARM INTACT.
--- NOTE | 2021-12-27 08:57 | NUR ---
TELEMETRY ST 112 PER DIRECTOR OF GLOBAL MARKETING.
--- NOTE | 2021-12-27 09:23 | NUR ---
LABS DRAWN FROM POWERGLIDE AND GIVEN TO TOOL SHAPER SET UP OPERATOR. FLUSHED WITH 10 CC SALINE BOTH PORTS. TOLERATED WELL.
[2021-12-27 09:29] LABS: BASOPHILS ABSOLUTE AUTO 0.01 K/mm3 (0.00-0.23); BASOPHILS PERCENT AUTO 0 % (0-2); Hematocrit 29.1 % (37.0-53.0); Hemoglobin 9.8 g/dL (13.5-17.5); LYMPHOCYTES ABSOLUTE AUTO 0.81 K/mm3 (0.84-5.20); LYMPHOCYTES PERCENT AUTO 12 % (21-46); MONOCYTES ABSOLUTE AUTO 0.74 K/mm3 (0.16-1.47); MONOCYTES PERCENT AUTO 11 % (4-13); Mean Corpuscular HGB 30.1 pg (26.0-34.0); Mean Corpuscular HGB Conc 33.7 g/dL (31.5-36.5); Mean Corpuscular Volume 89 fL (80-100); Mean Platelet Volume 10.3 fL (9.1-12.4); Platelet Count 71 K/mm3 (150-400); RDW Coefficient Variation 13.2 % (11.7-14.2); RDW Standard Deviation 43.3 fL (35.1-46.3); Red Blood Cell Count 3.26 M/mm3 (4.30-5.90); White Blood Cell Count 6.91 K/mm3 (4.00-11.30)
[2021-12-27 09:33] LABS: EOSINOPHILS ABSOLUTE AUTO 0.01 K/mm3 (0.00-0.68); EOSINOPHILS PERCENT AUTO 0 % (0-6); IMMATURE GRAN ABSOLUTE AUTO 0.12 K/mm3 (0.00-0.10); IMMATURE GRAN PERCENT AUTO 2 % (0-1); NEUTROPHILS ABSOLUTE AUTO 5.22 K/mm3 (1.96-9.15); NEUTROPHILS PERCENT AUTO 76 % (41-73)
[2021-12-27 09:46] LABS: Anion Gap 6 mmol/L (6-16); Blood Urea Nitrogen 8 mg/dL (8-24); Bun/Creatinine Ratio 16.4 (12.0-20.0); CO2, Blood 28 mmol/L (21-32); Calcium, Blood 7.6 mg/dL (8.5-10.1); Chloride, Blood 103 mmol/L (98-108); Creatinine, Blood 0.49 mg/dL (0.60-1.20); Glomerular Filtration Rate >60 (60-); Glucose, Blood 158 mg/dL (70-99); Potassium, Blood 3.9 mmol/L (3.5-5.5); Sodium, Blood 137 mmol/L (136-145)
[2021-12-27 10:05] LABS: Vancomycin, Trough 20.3 ug/mL (5.0-10.0)
[2021-12-27 10:06] LABS: BAND PERCENT MAN 7 % (0-8); BASOPHILS PERCENT MAN 0 % (0-2); EOSINOPHILS PERCENT MAN 0 % (0-6); LYMPHOCYTES ABSOLUTE MAN 0.48 K/mm3 (0.84-5.20); LYMPHOCYTES PERCENT MAN 7 % (21-46); MONOCYTES ABSOLUTE MAN 0.89 K/mm3 (0.16-1.47); MONOCYTES PERCENT MAN 13 % (4-13); NEUTROPHILS ABSOLUTE MAN 5.52 K/mm3 (1.96-9.15); SEG NEUTROPHILS PERCENT MAN 73 % (41-73); TOTAL CELLS COUNTED 100
--- NOTE | 2021-12-27 10:09 | NUR ---
SPOKE WITH AKUA WELCH ABOUT CRITICAL VANC LEVEL 20.3. DOSE WILL BE REDUCED AND RESCHEDULED TO 1100.
--- NOTE | 2021-12-27 11:43 | NUR ---
ABD PADS AND KERLEX DRESSINGS APPLIED TO BOTH GREAT TOES PER VERBAL ORDER FROM DR. ZURITA THIS AM. TOLERATED WELL.
--- NOTE | 2021-12-27 11:45 | NUR ---
RECEIVED CALL FROM SPEECH THERAPIST THAT PATIENT NEEDS TO BE NPO FOR FAILED SWALLOW STUDY DUE TO ASPIRATION AND PEG TUBE NEEDED. ASKED HER TO CALL DR. DUNCAN TO INFORM HIM.
--- NOTE | 2021-12-27 13:03 | NUR ---
PATIENT WAS SITTING EOB CONFUSED STATING WE WERE "RUNNING A CON OPERATION HERE". WOULDN'T LAY BACK IN BED OR GET INTO CHAIR WITH ALARM. TOOK O2 OFF AND REFUSED TO REAPPLY. HE WAS AGITATED AND GRABBING STAFF ROUGHLY. SECURITY WAS CALLED TO BE ON STANDBY . PATIENT EVENTUALLY BECAME AGREEABLE TO A SPONGE BATH BEDSIDE TO REMOVE THE URINE FROM THE SOILED BRIEF AND WAS ASSISTED TO DRESS INTO HIS PERSONAL CLOTHING. HE SAT IN THE BEDSIDE CHAIR WITH THE CHAIR ALARM ON AND FINALLY ALLOWED THE OXYGEN BE PUT BACK ON HIM. AWAITING FAMILY ARRIVAL FOR DISCHARGE TO [facility]. WILL MONITOR.
--- NOTE | 2021-12-27 16:22 | NUR ---
OSTOMY BAG REPLACED TO DENICE HEIN RN CHARGE NURSE.
--- NOTE | 2021-12-27 18:05 | NUR ---
AT APPROX 1215, WHEN VANCOMYCIN IVPB COMPLETED THE EXISTING NS 500 CC BAG WHICH HAD A VOLUME OF 350 CC WAS INITIATED TO INFUSE AT 75 CC/HR AND NOT SCANNED ON THE MAR AT THAT TIME. NEW BAG JUST HUNG AT 1800 CONTINUING TO INFUSE AT 75 CC/HR VIA PUMP.
--- NOTE | 2021-12-27 18:08 | NUR ---
PATIENT HAD NO C/O PAIN TODAY. HE IS NPO DUE TO FINDINGS ON A BARIUM SWALLOW STUDY TODAY. PATIENT REQUESTS THAT TO BE REPEATED AND DR. DUNCAN WAS MADE AWARE OF HIS REQUEST. NS @ 75 CC/HR WAS STARTED TODAY AFTER PATIENT BECAME NPO. IV VANCOMYCIN DOSING WAS CHANGED TODAY DUE TO THE VANC TROUGH BEING 20.3. DRESSINGS WERE PLACED ON BOTH GREAT TOES/FEET DUE TO DIABETIC SORES PER VERBAL ORDER FROM DR. ZURITA. VASCULAR CONSULT PENDING. OSTOMY BAG CHANGED TODAY. ACCUCHECKS CHANGED TO Q 6 HOURS PER POLICY WHILE PATIENT IS NPO. MEDICATED PER E-MAR. REPORT WILL BE GIVEN TO ONCOMING SHIFT AT 1845.
[2021-12-28 04:51] LABS: Hematocrit 29.3 % (37.0-53.0); Hemoglobin 9.6 g/dL (13.5-17.5); Mean Corpuscular HGB 29.8 pg (26.0-34.0); Mean Corpuscular HGB Conc 32.8 g/dL (31.5-36.5); Mean Corpuscular Volume 91 fL (80-100); Mean Platelet Volume 10.3 fL (9.1-12.4); Platelet Count 93 K/mm3 (150-400); RDW Coefficient Variation 13.2 % (11.7-14.2); Red Blood Cell Count 3.22 M/mm3 (4.30-5.90); White Blood Cell Count 6.05 K/mm3 (4.00-11.30)
[2021-12-28 05:07] LABS: Anion Gap 5 mmol/L (6-16); Blood Urea Nitrogen 8 mg/dL (8-24); Bun/Creatinine Ratio 17.2 (12.0-20.0); CO2, Blood 28 mmol/L (21-32); Calcium, Blood 7.7 mg/dL (8.5-10.1); Chloride, Blood 106 mmol/L (98-108); Creatinine, Blood 0.46 mg/dL (0.60-1.20); Glomerular Filtration Rate >60 (60-); Glucose, Blood 126 mg/dL (70-99); Potassium, Blood 3.5 mmol/L (3.5-5.5); Sodium, Blood 139 mmol/L (136-145)
[2021-12-28 05:23] LABS: BAND PERCENT MAN 9 % (0-8); BASOPHILS PERCENT MAN 0 % (0-2); EOSINOPHILS PERCENT MAN 0 % (0-6); LYMPHOCYTES PERCENT MAN 10 % (21-46); MONOCYTES ABSOLUTE MAN 0.54 K/mm3 (0.16-1.47); MONOCYTES PERCENT MAN 9 % (4-13); SEG NEUTROPHILS PERCENT MAN 72 % (41-73); TOTAL CELLS COUNTED 100
--- NOTE | 2021-12-28 05:58 | NUR ---
CONTINUOUS YARN DYEING MACHINE OPERATOR SUMMARY RESTING QUIETLY WITH OCCASIONAL COUGHING/SUCTIONING MUCOUS OF MOUTH. NS INFUSING AT 75 ML/HR. ANTIBIOTICS INFUSING PER JAN. MED TELE SINUS IN 70'S. AFFECT CHEERFUL AND POLITE WHEN SPEAKING TO STAFF. DENIED PAIN. DENIED LOSS OF FEELING. CALL LIGHT IN REACH. ISOLATION PRECAUTIONS MAINTAINED.
--- NOTE | 2021-12-28 10:48 | NUR ---
@ 0835, POWERGLIDE INTACT R ARM. TRANSPARENT DRESSING INTACT. FLUSHES WELL. NO REDNESS, EDEMA OR C/O PAIN TO SITE. @ 1015, TELEMETRY SINUS TACH 110.
--- NOTE | 2021-12-28 10:57 | NUR ---
SPOKE WITH ANDI IN SPEECH THERAPY CONCERNING GETTING A RE-EVALUATION DONE FOR PATIENT, BOTH THE PATIENT AND DR. SENIOR ARE REQUESTING IT.
--- NOTE | 2021-12-28 11:02 | NUR ---
VERIFIED WITH BLOOD BANK THAT PLATELETS ARE NOT YET AVAILABLE FOR THE PATIENT.
--- NOTE | 2021-12-28 17:09 | NUR ---
Spoke with ST Aranda and discussed case. Pt recommended for NPO and failed modified barrium swallow study. Pt resting in bed and is A&OX3/4. Pt struggles with answering reason for hospital stay and events leading up to today. Pt reports not being and no children. Pt reports living with his brothers at home. Initially Pt reports no issues at home with caring for self and ambulates independently with no trouble. Pt speaks in a simple manor. After a few minutes of conversation Pt starts discussing how someone from [facility] comes and works with him for bed exercises. Continued therapeutic listening as Pt discusses his insulin injections and he will go weeks and even a month without checking his blood sugar. Educated on the importance of checking blood sugars. Assessed Pt's understanding of swallow evaluation with Pt expressing frustration how they took his food away. He requests another evaluation. Inquired with Pt if results are the same what his wishes would be for a Peg tube. Pt stats he would not want a peg tube and would rather eat. Assessed Pt's level of understanding of consequences of continued PO intake. Pt's level of understanding is questionsable and appears low. Pt gives this RN permission to call his brothers to discuss further with them Called and spoke with Pt's brother Marcelo. Marcelo reports struggling understanding information. Based of short conversation susspected concerns and aske if this RN could speak with his other brother. Marcelo reports his brother Rush is at work at [employer]. Marcelo gives this RN Raphael's phone number from "[employer]" and states to explain to Raphael and Raphael will assist him and brother Rush in understanding. Called and spoke with Raphael who reqports they casemanage for people of intelictual and develpmental delay. She reports the have been trying to get Pt Janes onto services with them as well. Explain Pt's brother's request to contact Raphael to explain decision Pt is faced. Raphael will assist Pt's brothers in understanding. Raphael expresses appreciation and would like to be updated on pending cognitivie evaluation for Pt. Spoke with Dr Gibbs and discussed case. Placed order for ST to perform cognitive evaluation. Spoke with [facility] Mcmillan and relayed inforation learned. Palliative Care will remain available.
--- NOTE | 2021-12-28 19:37 | NUR ---
ASSUMED CARE OF THIS PT AT 1630. PT IS PLESANT AND COOPERATIVE. HIS BED IS IN THE LOW POSITION CALL LIGHT WITHIN REACH, NO COMPLAINTS AT THIS TIME
[2021-12-29 10:22] LABS: BASOPHILS ABSOLUTE AUTO 0.01 K/mm3 (0.00-0.23); BASOPHILS PERCENT AUTO 0 % (0-2); EOSINOPHILS ABSOLUTE AUTO 0.01 K/mm3 (0.00-0.68); EOSINOPHILS PERCENT AUTO 0 % (0-6); Hematocrit 28.4 % (37.0-53.0); Hemoglobin 9.4 g/dL (13.5-17.5); Mean Corpuscular HGB 29.7 pg (26.0-34.0); Mean Corpuscular HGB Conc 33.1 g/dL (31.5-36.5); Mean Corpuscular Volume 90 fL (80-100); Mean Platelet Volume 10.1 fL (9.1-12.4); Platelet Count 108 K/mm3 (150-400); RDW Coefficient Variation 13.4 % (11.7-14.2); RDW Standard Deviation 44.5 fL (35.1-46.3); Red Blood Cell Count 3.16 M/mm3 (4.30-5.90); White Blood Cell Count 5.08 K/mm3 (4.00-11.30)
[2021-12-29 10:31] LABS: IMMATURE GRAN ABSOLUTE AUTO 0.12 K/mm3 (0.00-0.10); IMMATURE GRAN PERCENT AUTO 2 % (0-1); LYMPHOCYTES ABSOLUTE AUTO 1.04 K/mm3 (0.84-5.20); LYMPHOCYTES PERCENT AUTO 21 % (21-46); MONOCYTES ABSOLUTE AUTO 0.52 K/mm3 (0.16-1.47); MONOCYTES PERCENT AUTO 10 % (4-13); NEUTROPHILS ABSOLUTE AUTO 3.38 K/mm3 (1.96-9.15); NEUTROPHILS PERCENT AUTO 67 % (41-73)
[2021-12-29 10:38] LABS: Vancomycin, Trough 14.7 ug/mL (5.0-10.0)
[2021-12-29 11:03] LABS: Alanine Aminotransfer (ALT/SGP 16 U/L (12-78); Albumin, Blood 1.2 g/dL (3.4-5.0); Albumin/Globulin Ratio 0.3 (0.8-1.8); Alk Phos 138 U/L (50-136); Anion Gap 5 mmol/L (6-16); Aspartate Aminotrans (AST/SGOT 17 U/L (12-37); Bilirubin, Total 0.3 mg/dL (0.1-1.0); Blood Urea Nitrogen 9 mg/dL (8-24); Bun/Creatinine Ratio 23.9 (12.0-20.0); CO2, Blood 30 mmol/L (21-32); Calcium, Blood 7.6 mg/dL (8.5-10.1); Chloride, Blood 103 mmol/L (98-108); Creatinine, Blood 0.38 mg/dL (0.60-1.20); Globulin, Blood 4.4 g/dL (2.2-4.0); Glomerular Filtration Rate >60 (60-); Glucose, Blood 214 mg/dL (70-99); Phosphorus, Blood 1.4 mg/dL (2.5-4.9); Potassium, Blood 3.4 mmol/L (3.5-5.5); Sodium, Blood 138 mmol/L (136-145); Total Protein, Blood 5.6 g/dL (6.4-8.2); Triglycerides 106 mg/dL (30-160)
--- NOTE | 2021-12-29 13:34 | NUR ---
Spiritual care visit conducted. Patient immediately tells me about his concerns about his finances, his placement after DC and his ability to recover strength and mobility. I provide therapeutic listening, pastoral public relations counselor, anxiety containment and paryer. Ariadnan responds well and shows signs of having increased peace. I will continue to remain available to patient and family.
[2021-12-29 16:24] LABS: International Normalized Ratio 1.1; Prothrombin Time Results 11.5 Sec (9.7-11.5)
--- NOTE | 2021-12-29 17:46 | NUR ---
Met with Raphael from [facility] today. Unfortunately, pt was down having CT while she waited, and he didn't return before she had to leave. She was hoping to speak to him about the PEG tube. However, per SHEEP HERDER chase, pt is alert and oriented, at his regular baseline and able to make his own choices. He has chosen no PEG tube. Will discuss this with hospitalist in the am, along with care management.
--- NOTE | 2021-12-29 18:51 | NUR ---
Patient is A&Ox4. He is resting comfortably and has no complaints. Heparin drip was started per doctors order. Denies any pain. Call light within reach, bed in lowest position and isolation precautions maintained.
--- NOTE | 2021-12-30 07:30 | NUR ---
PATIENT'S HEPARIN INCREASED BY THE PHARAMCY IN RESPONSE TO LABS. PATIENT CURRENTLY ON TPN, HEPARIN DRIP AND VANCOMYCIN. PATIENT IS COOPERATIVE AND ALERT AT THE END OF SHIFT REPORT GIVEN TO ONCOMING NURSE.
[2021-12-30 09:31] LABS: Hematocrit 30.1 % (37.0-53.0); Hemoglobin 9.6 g/dL (13.5-17.5); Mean Corpuscular HGB 29.1 pg (26.0-34.0); Mean Corpuscular HGB Conc 31.9 g/dL (31.5-36.5); Mean Corpuscular Volume 91 fL (80-100); Mean Platelet Volume 10.3 fL (9.1-12.4); NRBC ABSOLUTE 0.02 K/mm3 (0.00-0.02); NRBC Auto 0.4 /100 WBC (0.0-0.2); Platelet Count 141 K/mm3 (150-400); RDW Coefficient Variation 13.6 % (11.7-14.2); RDW Standard Deviation 45.1 fL (35.1-46.3)
[2021-12-30 09:46] LABS: Alanine Aminotransfer (ALT/SGP 10 U/L (12-78); Albumin, Blood 1.2 g/dL (3.4-5.0); Albumin/Globulin Ratio 0.2 (0.8-1.8); Alk Phos 146 U/L (50-136); Anion Gap 2 mmol/L (6-16); Aspartate Aminotrans (AST/SGOT 11 U/L (12-37); Bilirubin, Total 0.2 mg/dL (0.1-1.0); Blood Urea Nitrogen 7 mg/dL (8-24); Bun/Creatinine Ratio 14.8 (12.0-20.0); CO2, Blood 34 mmol/L (21-32); Calcium, Blood 7.3 mg/dL (8.5-10.1); Chloride, Blood 102 mmol/L (98-108); Creatinine, Blood 0.47 mg/dL (0.60-1.20); Globulin, Blood 4.8 g/dL (2.2-4.0); Glomerular Filtration Rate >60 (60-); Glucose, Blood 204 mg/dL (70-99); Phosphorus, Blood 2.6 mg/dL (2.5-4.9); Potassium, Blood 3.3 mmol/L (3.5-5.5); Sodium, Blood 138 mmol/L (136-145)
[2021-12-30 09:53] LABS: BASOPHILS PERCENT MAN 0 % (0-2); EOSINOPHILS PERCENT MAN 0 % (0-6); LYMPHOCYTES ABSOLUTE MAN 0.51 K/mm3 (0.84-5.20); LYMPHOCYTES PERCENT MAN 10 % (21-46); MONOCYTES PERCENT MAN 6 % (4-13); NEUTROPHILS ABSOLUTE MAN 4.33 K/mm3 (1.96-9.15); SEG NEUTROPHILS PERCENT MAN 85 % (41-73); TOTAL CELLS COUNTED 52
--- NOTE | 2021-12-30 11:04 | NUR ---
Wound care recommendation; Keep feet clean and DRY. Apply betadine to BL great toes daily let air dry then cover with gauze.
--- NOTE | 2021-12-30 15:22 | NUR ---
PT TOLERATES GRAY PROCEDURE WELL. MARIELA. CLIVE. PT WILL RETURN TO 313 FOR CONTINUATION OF CARE SOON.
--- NOTE | 2021-12-30 17:58 | NUR ---
PATIENT IS A&OX4. HE IS RESTING COMFORTABLY, HAS NO COMPLAINTS. HEPARIN DRIP D/C PER DR ORDER. TPN RUNNING. POWERGLIDE NO LONGER HAS BLOOD RETURN. DR DUNCAN NOTIFIED THAT GRAY WAS COMPLETED. NYSTATIN ORDERED FOR GROIN. CALL LIGHT PLACED WITHIN REACH AND BED ON LOWEST POSITION.
[2021-12-30 18:49] LABS: Vancomycin, Trough 14.8 ug/mL (5.0-10.0)
[2021-12-31 05:38] LABS: BASOPHILS ABSOLUTE AUTO 0.03 K/mm3 (0.00-0.23); BASOPHILS PERCENT AUTO 1 % (0-2); EOSINOPHILS ABSOLUTE AUTO 0.02 K/mm3 (0.00-0.68); EOSINOPHILS PERCENT AUTO 0 % (0-6); Hematocrit 28.8 % (37.0-53.0); Hemoglobin 9.1 g/dL (13.5-17.5); IMMATURE GRAN ABSOLUTE AUTO 0.15 K/mm3 (0.00-0.10); IMMATURE GRAN PERCENT AUTO 3 % (0-1); LYMPHOCYTES PERCENT AUTO 22 % (21-46); MONOCYTES ABSOLUTE AUTO 0.69 K/mm3 (0.16-1.47); MONOCYTES PERCENT AUTO 14 % (4-13); Mean Corpuscular HGB 29.1 pg (26.0-34.0); Mean Corpuscular HGB Conc 31.6 g/dL (31.5-36.5); Mean Corpuscular Volume 92 fL (80-100); Mean Platelet Volume 9.8 fL (9.1-12.4); NEUTROPHILS ABSOLUTE AUTO 3.06 K/mm3 (1.96-9.15); NEUTROPHILS PERCENT AUTO 61 % (41-73); NRBC ABSOLUTE 0.02 K/mm3 (0.00-0.02); NRBC Auto 0.4 /100 WBC (0.0-0.2); Platelet Count 160 K/mm3 (150-400); RDW Coefficient Variation 13.9 % (11.7-14.2); RDW Standard Deviation 45.8 fL (35.1-46.3); Red Blood Cell Count 3.13 M/mm3 (4.30-5.90); White Blood Cell Count 5.05 K/mm3 (4.00-11.30)
[2021-12-31 06:00] LABS: Alanine Aminotransfer (ALT/SGP 11 U/L (12-78); Albumin, Blood 1.2 g/dL (3.4-5.0); Albumin/Globulin Ratio 0.2 (0.8-1.8); Alk Phos 123 U/L (50-136); Anion Gap 3 mmol/L (6-16); Aspartate Aminotrans (AST/SGOT 8 U/L (12-37); Bilirubin, Total 0.4 mg/dL (0.1-1.0); Blood Urea Nitrogen 9 mg/dL (8-24); Bun/Creatinine Ratio 24.3 (12.0-20.0); CO2, Blood 32 mmol/L (21-32); Calcium, Blood 7.6 mg/dL (8.5-10.1); Chloride, Blood 102 mmol/L (98-108); Creatinine, Blood 0.37 mg/dL (0.60-1.20); Globulin, Blood 4.8 g/dL (2.2-4.0); Glomerular Filtration Rate >60 (60-); Glucose, Blood 180 mg/dL (70-99); Magnesium, Blood 2.1 mg/dL (1.6-2.4); Potassium, Blood 3.7 mmol/L (3.5-5.5); Sodium, Blood 137 mmol/L (136-145)
--- NOTE | 2021-12-31 06:29 | NUR ---
SHIFT SUMMARY Pt rested well, no c/o pain, NPO per orders and PPN infusing via powerglide. Pt incontinent of large amount of urine, skin excoriated to groin/van area and buttocks. Van care done with each incontinence and med per jan. Colostomy with 300ml brown, formed stool this shift. Pt occasionally coughing up thick secretions from back of throat. VSS, anticipate d/c when medically stable.
--- NOTE | 2022-01-01 06:07 | NUR ---
SHIFT SUMMARY Pt rested well, no c/o pain, pt reports coughing up fewer secretions, PPN infusing per orders. Pt using urinal at times to void, also incontinent of large amount of urine. Skin continues to be excoriated to groin/scrotum and buttocks, van care done and cream applied. VSS, afebrile, abx's per mar. Anticipate d/c when medically stable.
[2022-01-01 08:36] LABS: Anion Gap 2 mmol/L (6-16); Blood Urea Nitrogen 9 mg/dL (8-24); Bun/Creatinine Ratio 22.8 (12.0-20.0); CO2, Blood 32 mmol/L (21-32); Calcium, Blood 7.5 mg/dL (8.5-10.1); Chloride, Blood 103 mmol/L (98-108); Creatinine, Blood 0.39 mg/dL (0.60-1.20); Glomerular Filtration Rate >60 (60-); Glucose, Blood 187 mg/dL (70-99); Potassium, Blood 4.5 mmol/L (3.5-5.5); Sodium, Blood 137 mmol/L (136-145)
[2022-01-01 18:53] LABS: Vancomycin, Trough 15.6 ug/mL (5.0-10.0)
--- NOTE | 2022-01-02 04:54 | NUR ---
SHIFT SUMMARY PT SLEPT WELL THIS EVENING. INCONTINENT/CONTINENT. PT VOIDED IN THE URINAL MOSTLY BUT DOES HAVE SOME FREQUENT DRIBBLE OR URINE. SKIN AROUND DELMIS AREA RED AND EXCORIATED. ENCOURAGED PT TO ATTEMPT A CONDOM CATHETER AGAIN AND PT REFUSED. CLEANED SKIN NEEDED. NYSTATIN CREAM APPLIED. TPN INFUSING THROUGHOUT THE NIGHT. PT TOOK PILLS WELL CRUSHED IN APPLESAUCE. ORAL CARE DONE BEFORE AND AFTER MEDICATIONS. OSTOMY TO L ABD WITH MOSTLY FORMED BROWN STOOL. PT PARTICIPATES WELL WITH REPOSITIONING. VITAL SIGNS STABLE. TELEMETRY SINUS TACH 107. NO ACUTE CHANGES THIS EVENING.
[2022-01-02 05:37] LABS: BASOPHILS ABSOLUTE AUTO 0.05 K/mm3 (0.00-0.23); BASOPHILS PERCENT AUTO 1 % (0-2); EOSINOPHILS ABSOLUTE AUTO 0.04 K/mm3 (0.00-0.68); EOSINOPHILS PERCENT AUTO 0 % (0-6); Hematocrit 31.1 % (37.0-53.0); IMMATURE GRAN PERCENT AUTO 4 % (0-1); LYMPHOCYTES ABSOLUTE AUTO 1.54 K/mm3 (0.84-5.20); LYMPHOCYTES PERCENT AUTO 17 % (21-46); MONOCYTES ABSOLUTE AUTO 1.26 K/mm3 (0.16-1.47); MONOCYTES PERCENT AUTO 14 % (4-13); Mean Corpuscular HGB 29.5 pg (26.0-34.0); Mean Corpuscular HGB Conc 32.2 g/dL (31.5-36.5); Mean Corpuscular Volume 92 fL (80-100); Mean Platelet Volume 9.7 fL (9.1-12.4); NEUTROPHILS ABSOLUTE AUTO 5.83 K/mm3 (1.96-9.15); NEUTROPHILS PERCENT AUTO 64 % (41-73); Platelet Count 219 K/mm3 (150-400); RDW Coefficient Variation 14.2 % (11.7-14.2); RDW Standard Deviation 47.3 fL (35.1-46.3); Red Blood Cell Count 3.39 M/mm3 (4.30-5.90); White Blood Cell Count 9.12 K/mm3 (4.00-11.30)
[2022-01-02 06:06] LABS: Anion Gap 3 mmol/L (6-16); Blood Urea Nitrogen 11 mg/dL (8-24); Bun/Creatinine Ratio 26.8 (12.0-20.0); CO2, Blood 31 mmol/L (21-32); Calcium, Blood 7.8 mg/dL (8.5-10.1); Chloride, Blood 102 mmol/L (98-108); Creatinine, Blood 0.41 mg/dL (0.60-1.20); Glomerular Filtration Rate >60 (60-); Glucose, Blood 180 mg/dL (70-99); Potassium, Blood 4.5 mmol/L (3.5-5.5); Sodium, Blood 136 mmol/L (136-145)
--- NOTE | 2022-01-02 17:45 | NUR ---
SHIFT SUMMARY: PT A/O X 4 BEDREST. PLEASANT AND COOPERATIVE WITH CARES. YEAST RASH TO GROIN AND BUTTOCKS AREA. NYSTATIN CREAM APPLIED. COLOSTOMY BAG CHANGED DUE TO LEAKING AND SKIN AROUND STOMA APPEARS TO BE GETTING TINY ROUND RED SPOTS. SKIN CLEANSED WELL. YEAST RASH NOTED ON ABD CREASE OF LEFT SIDE OF ABD. NYSTATIN CREAM APPLIED TO THIS AREA ALSO. PT COUGHING UP DE OLIVEIRA COLORED SPUTUM. PT WOUND ON 1ST TOES CLEANSED WITH WOUND CLEANSER AND GENTLY PATTED DRY WITH GAUZE. BETADINE APPLIED AND TOES WRAPPED WITH KERLEX AND TAPED INTO PLACE. NO DRAINAGE OR OPEN WOUNDS NOTED ON LEFT 1ST TOE, BUT RIGHT 1ST TOE HAD SMALL AMOUNT OF DE OLIVEIRA DRAINAGE. PT TOLERATED DRESSING CHANGES WELL. DISCUSSED IN DETAIL WHAT PEG TUBE PLACEMENT ENTAILS AND PROVIDED WRITTEN EDUCATION MATERIALS ABOUT PEG TUBE. SPOKE TO PT ABOUT HIS CHOICES. PT ULTIMATELY CHOSE TO HAVE PEG TUBE PLACEMENT AFTER EDUCATED BY [facility] THERAPY OF SWALLOW EVAL. DR. DUNCAN NOTIFIED OF PT CHOICE AND CONSULT PLACED FOR GENERAL SURGERY. DR. BERNAL OFFICE NOTIFIED OF CONSULT. PT NPO AT THIS TIME BY CHOICE TO PREVENT ASPIRATION. ICE CHIPS OK.
[2022-01-03 06:05] LABS: BASOPHILS ABSOLUTE AUTO 0.03 K/mm3 (0.00-0.23); BASOPHILS PERCENT AUTO 0 % (0-2); EOSINOPHILS ABSOLUTE AUTO 0.05 K/mm3 (0.00-0.68); EOSINOPHILS PERCENT AUTO 1 % (0-6); Hematocrit 31.3 % (37.0-53.0); Hemoglobin 9.8 g/dL (13.5-17.5); IMMATURE GRAN PERCENT AUTO 4 % (0-1); LYMPHOCYTES ABSOLUTE AUTO 1.48 K/mm3 (0.84-5.20); LYMPHOCYTES PERCENT AUTO 16 % (21-46); MONOCYTES ABSOLUTE AUTO 1.42 K/mm3 (0.16-1.47); MONOCYTES PERCENT AUTO 15 % (4-13); Mean Corpuscular HGB 28.9 pg (26.0-34.0); Mean Corpuscular HGB Conc 31.3 g/dL (31.5-36.5); Mean Corpuscular Volume 92 fL (80-100); Mean Platelet Volume 9.7 fL (9.1-12.4); NEUTROPHILS ABSOLUTE AUTO 6.13 K/mm3 (1.96-9.15); NEUTROPHILS PERCENT AUTO 65 % (41-73); Platelet Count 235 K/mm3 (150-400); RDW Coefficient Variation 14.3 % (11.7-14.2); RDW Standard Deviation 47.8 fL (35.1-46.3); Red Blood Cell Count 3.39 M/mm3 (4.30-5.90); White Blood Cell Count 9.51 K/mm3 (4.00-11.30)
[2022-01-03 06:35] LABS: Alanine Aminotransfer (ALT/SGP 12 U/L (12-78); Albumin, Blood 1.3 g/dL (3.4-5.0); Albumin/Globulin Ratio 0.2 (0.8-1.8); Alk Phos 116 U/L (50-136); Anion Gap 4 mmol/L (6-16); Aspartate Aminotrans (AST/SGOT 14 U/L (12-37); Bilirubin, Total 0.3 mg/dL (0.1-1.0); Blood Urea Nitrogen 12 mg/dL (8-24); Bun/Creatinine Ratio 27.7 (12.0-20.0); CO2, Blood 31 mmol/L (21-32); Calcium, Blood 8.2 mg/dL (8.5-10.1); Chloride, Blood 100 mmol/L (98-108); Creatinine, Blood 0.43 mg/dL (0.60-1.20); Globulin, Blood 6.3 g/dL (2.2-4.0); Glomerular Filtration Rate >60 (60-); Glucose, Blood 167 mg/dL (70-99); Potassium, Blood 4.6 mmol/L (3.5-5.5); Sodium, Blood 135 mmol/L (136-145); Total Protein, Blood 7.6 g/dL (6.4-8.2)
--- NOTE | 2022-01-03 08:12 | NUR ---
SHIFT SUMMARY PT A/O X4 AND COOPERATIVE, NPO EXCEPT ICE CHIPS AND MEDS CRUSHED IN APPLESAUCE, PPN AND VIA POWERGLIDE RT. ARM,COLOSTOMY INTACT WITH NO BM THIS SHIFT, VOIDING CLEAR YELLOW URINE, BS Q6 HRS CONTIED AND 0600 BG WAS 161 AND INSULIN COVERAGE WAS GIVEN, TURNED AND REPOSITIONED Q 2HRS, REDNESS BILATERAL GROIN AND SCROTUM PRESENT, DRSG D/I TO SARCUM AND TOES AON BOTH FEET , REDNESS NOTED AT COLOSTOMY , PT DENIES ANY PAIN , NO DISTRESS NOTED.
--- NOTE | 2022-01-03 14:29 | NUR ---
POWER GLIDE IN UPPER RIGHT ARM PATENT.
--- NOTE | 2022-01-03 14:30 | NUR ---
PT TRANSFERED TO [facility] VIA [facility]URNY FROM FLOOR. History, Chart, Medications and Allergies reviewed before start of procedure. Lungs clear T/O to Auscultation. Patient confirms NPO status and agrees with scheduled surgery. Pre-Op teaching done. Pt verbalizes understanding.
--- NOTE | 2022-01-03 15:26 | NUR ---
01/03/22 1526 AIRAM NUÑEZ History, Chart, Medications and Allergies reviewed before start of procedure. 3-LEAD EKG REVIEWED WITH PHYSICIAN PRIOR TO START OF PROCEDURE. O2 VIA POM. MONITOR INTACT WITH CONTINUOUS PULSE OXIMETRY AND INTERMITTENT BP. GENRAL WITH DR. BECERRIL.
--- NOTE | 2022-01-03 16:25 | NUR ---
RN REALIZED I PUT IN THE ORDER FOR THE LIDOCAINE UPDRAFT AND DUONEB UNDER THE INCORRECT PROVIDER MARCO KELLER. THE ORDERING PROVIDER WAS ACTUALLY SUREKHA BECERRIL MD. I CALLED PHARMACY AND SINCE THEN WERE A ONE TIME MEDICATION ORDER, THEY ARE UNABLE TO FIX IT. I WAS ADVISED TO EMAIL TIM LAKE TO LET HER KNOW.
--- NOTE | 2022-01-03 18:50 | NUR ---
PATIENT BACK FROM OR. RECIEVED PEG TUBE. Q4 VITALS FOR 24HRS STARTING AT 1900. PATIENT RESTING COMFORTABLY WITH NO COMPLAINTS. PEG TUBE NOT TO BE USED FOR FEEDINGS UNTIL TOMORROW MORNING 0800. TPN RUNNING. CALL LIGHT WITHIN REACH. BED IN LOWEST POSITION.
[2022-01-04 05:58] LABS: BASOPHILS ABSOLUTE AUTO 0.06 K/mm3 (0.00-0.23); BASOPHILS PERCENT AUTO 1 % (0-2); EOSINOPHILS ABSOLUTE AUTO 0.05 K/mm3 (0.00-0.68); EOSINOPHILS PERCENT AUTO 1 % (0-6); Hematocrit 31.5 % (37.0-53.0); IMMATURE GRAN ABSOLUTE AUTO 0.38 K/mm3 (0.00-0.10); IMMATURE GRAN PERCENT AUTO 4 % (0-1); LYMPHOCYTES ABSOLUTE AUTO 1.56 K/mm3 (0.84-5.20); LYMPHOCYTES PERCENT AUTO 16 % (21-46); MONOCYTES ABSOLUTE AUTO 1.54 K/mm3 (0.16-1.47); MONOCYTES PERCENT AUTO 16 % (4-13); Mean Corpuscular HGB 29.3 pg (26.0-34.0); Mean Corpuscular HGB Conc 31.7 g/dL (31.5-36.5); Mean Corpuscular Volume 92 fL (80-100); Mean Platelet Volume 9.7 fL (9.1-12.4); NEUTROPHILS ABSOLUTE AUTO 6.26 K/mm3 (1.96-9.15); NEUTROPHILS PERCENT AUTO 64 % (41-73); Platelet Count 266 K/mm3 (150-400); RDW Coefficient Variation 14.2 % (11.7-14.2); RDW Standard Deviation 47.5 fL (35.1-46.3); Red Blood Cell Count 3.41 M/mm3 (4.30-5.90); White Blood Cell Count 9.85 K/mm3 (4.00-11.30)
[2022-01-04 06:18] LABS: Alanine Aminotransfer (ALT/SGP 11 U/L (12-78); Albumin, Blood 1.3 g/dL (3.4-5.0); Albumin/Globulin Ratio 0.2 (0.8-1.8); Alk Phos 123 U/L (50-136); Anion Gap 3 mmol/L (6-16); Aspartate Aminotrans (AST/SGOT 17 U/L (12-37); Bilirubin, Total 0.4 mg/dL (0.1-1.0); Blood Urea Nitrogen 15 mg/dL (8-24); Bun/Creatinine Ratio 39.7 (12.0-20.0); CO2, Blood 32 mmol/L (21-32); Chloride, Blood 99 mmol/L (98-108); Creatinine, Blood 0.38 mg/dL (0.60-1.20); Globulin, Blood 6.4 g/dL (2.2-4.0); Glomerular Filtration Rate >60 (60-); Glucose, Blood 161 mg/dL (70-99); Potassium, Blood 4.5 mmol/L (3.5-5.5); Sodium, Blood 134 mmol/L (136-145); Total Protein, Blood 7.7 g/dL (6.4-8.2)
--- NOTE | 2022-01-04 07:38 | NUR ---
SHIFT SUMMARY PT A/OX4, NPO THIS SHIFT WITH MEDS GIVEN VIA NGT, COLOSTOMY INTACT WITH NO STOOL THIS SHIFT, VOIDS CLEAR YELLOW UA VIA URINAL WITH OCCAS. INCONTINECE, TURNED Q HOURS AND ZINC APPLIED TO RED /EXCORATED AREAS ON BUTTOCKS , GROIN AND SCROTUM . DRSGS DRY/INTACT TO BOTH GREAT TOES. PT DENIED ANY PAIN THIS SHIFT.NO ACUTE DISTRESS NOTED.
[2022-01-04 11:36] LABS: Vancomycin, Trough 18.4 ug/mL (5.0-10.0)
--- NOTE | 2022-01-04 18:41 | NUR ---
SHIFT SUMMARY TUBE FEEDING STARTED AT 1200. DENIES ANY FEELINGS OF FULLNESS, NAUSEA, GERD, BLOATING. REPOSITIONED SEVERAL TIMES. CREAMS APPLIED TO RASHES TO BUTTOCK/RECTAL/GROIN AREAS. SMALL AMOUNT OF WHAT APPEARS TO BE YEAST BELOW COLOSTOMY BAG. DENIES PAIN OR NAUSEA. DRESSINGS CHANGED TO GREAT TOES. POSSIBLE DISCHARGE TO [facility] TOMORROW.
[2022-01-05 06:01] LABS: BASOPHILS ABSOLUTE AUTO 0.08 K/mm3 (0.00-0.23); BASOPHILS PERCENT AUTO 1 % (0-2); EOSINOPHILS ABSOLUTE AUTO 0.08 K/mm3 (0.00-0.68); EOSINOPHILS PERCENT AUTO 1 % (0-6); Hematocrit 32.7 % (37.0-53.0); Hemoglobin 10.2 g/dL (13.5-17.5); IMMATURE GRAN ABSOLUTE AUTO 0.45 K/mm3 (0.00-0.10); IMMATURE GRAN PERCENT AUTO 4 % (0-1); LYMPHOCYTES ABSOLUTE AUTO 1.41 K/mm3 (0.84-5.20); LYMPHOCYTES PERCENT AUTO 14 % (21-46); MONOCYTES ABSOLUTE AUTO 1.69 K/mm3 (0.16-1.47); MONOCYTES PERCENT AUTO 17 % (4-13); Mean Corpuscular HGB 29.1 pg (26.0-34.0); Mean Corpuscular HGB Conc 31.2 g/dL (31.5-36.5); Mean Corpuscular Volume 93 fL (80-100); Mean Platelet Volume 9.9 fL (9.1-12.4); NEUTROPHILS ABSOLUTE AUTO 6.48 K/mm3 (1.96-9.15); NEUTROPHILS PERCENT AUTO 64 % (41-73); Platelet Count 272 K/mm3 (150-400); RDW Coefficient Variation 14.4 % (11.7-14.2); Red Blood Cell Count 3.51 M/mm3 (4.30-5.90); White Blood Cell Count 10.19 K/mm3 (4.00-11.30)
[2022-01-05 06:17] LABS: Alanine Aminotransfer (ALT/SGP 19 U/L (12-78); Albumin, Blood 1.4 g/dL (3.4-5.0); Albumin/Globulin Ratio 0.2 (0.8-1.8); Alk Phos 174 U/L (50-136); Anion Gap 2 mmol/L (6-16); Aspartate Aminotrans (AST/SGOT 32 U/L (12-37); Bilirubin, Total 0.2 mg/dL (0.1-1.0); Blood Urea Nitrogen 15 mg/dL (8-24); CO2, Blood 33 mmol/L (21-32); Chloride, Blood 100 mmol/L (98-108); Creatinine, Blood 0.41 mg/dL (0.60-1.20); Globulin, Blood 6.5 g/dL (2.2-4.0); Glomerular Filtration Rate >60 (60-); Glucose, Blood 156 mg/dL (70-99); Magnesium, Blood 2.2 mg/dL (1.6-2.4); Phosphorus, Blood 3.9 mg/dL (2.5-4.9); Potassium, Blood 4.5 mmol/L (3.5-5.5); Sodium, Blood 135 mmol/L (136-145); Total Protein, Blood 7.9 g/dL (6.4-8.2); Triglycerides 120 mg/dL (30-160)
--- NOTE | 2022-01-05 07:51 | NUR ---
SHIFT SUMMARY: PATIENT IS A&OX4, NO REPORTS OF PAIN. TOLERATING PEG TUBE FEEDS WELL. COLOSTOMY IS PATENT FOR A PASTY BROWN STOOL, POSITIVE BS ARE OBSERVED IN ALL QUADS. PATIENT IS RESISTANT TO TURN AT TIMES.
[2022-01-05 10:52] LABS: Vancomycin, Trough 18.8 ug/mL (5.0-10.0)
--- NOTE | 2022-01-05 19:10 | NUR ---
SHIFT SUMMARY PT DISCHARGE HELD DUE TO PNEUMOPERITONEUM. TUBE FEEDING HELD AT 1000. SPOKE WITH MD LATE THIS AFTERNOON AND RECEIVED PERMISSION TO RESTART TUBE FEEDING. HAS DENIED PAIN OR RESP DISTRESS TODAY.
--- NOTE | 2022-01-06 06:24 | NUR ---
SHIFT SUMMARY: PATIENT IS TOLERATING TUBE FEEDS WELL, NO NAUSEA. PATIENT WAS MORE AGREEABLE TO TURNING THIS SHIFT. COLOSTOMY IS ACTIVE FOR A SOFT BROWN STOOL. NO REPORTS OF PAIN OR DISCOMFORT.
[2022-01-06] MEDS ORDERED: NYSTRIT TOP (14:08)
[2022-01-06] MEDS ORDERED: VISBIOME 112.51 EACH PT (14:09)
[2022-01-06] MEDS ORDERED: VANCOMYCIN HCL750 MG IV (14:09)
[2022-01-06] MEDS ORDERED: ZINC OXIDE57 GM TOP (14:10)
[2022-01-06 14:49] LABS: Influenza A, PCR NEGATIVE (NEGATIVE); Influenza B, PCR NEGATIVE (NEGATIVE); Resp Syncytial Virus, PCR NEGATIVE (NEGATIVE); SARS-Cov-2 (COVID-19) PCR, MMC NEGATIVE (NEGATIVE)
== END 2022-01-06 18:40 | DRG 314 ==
LOC: ER 13:38 → MEDS 19:05 → PCU 19:05 → MEDS 12-25 23:35
PROVIDERS: Family Medicine; Internal Medicine; Pharmacist; Physician Assistant; Student in an Organized Health Care Education/Training Program; Surgery; ADMIT Internal Medicine
PROC: 3E02340 Introduction of Influenza Vaccine into Muscle, Percutaneous Approach (ICD-10-PCS; 2021-12-22)
PROC: 3E03329 Introduction of Other Anti-infective into Peripheral Vein, Percutaneous Approach (ICD-10-PCS; 2021-12-22)
PROC: 0JPT0WZ Removal of Totally Implantable Vascular Access Device from Trunk Subcutaneous Tissue and Fascia, Open Approach (ICD-10-PCS; principal; 2021-12-26 15:00)
PROC: 02HV33Z Insertion of Infusion Device into Superior Vena Cava, Percutaneous Approach (ICD-10-PCS; 2022-01-03)
PROC: 0DH63UZ Insertion of Feeding Device into Stomach, Percutaneous Approach (ICD-10-PCS; 2022-01-03)
DX: T80.211A Bloodstream infection due to central venous catheter, initial encounter (principal); R65.20 Severe sepsis without septic shock; A41.02 Sepsis due to Methicillin resistant Staphylococcus aureus; J96.01 Acute respiratory failure with hypoxia; J15.212 Pneumonia due to Methicillin resistant Staphylococcus aureus; E44.0 Moderate protein-calorie malnutrition; Z68.1 Body mass index [BMI] 19.9 or less, adult; R04.2 Hemoptysis; E87.2 Acidosis; C18.7 Malignant neoplasm of sigmoid colon; I96 Gangrene, not elsewhere classified; E11.52 Type 2 diabetes mellitus with diabetic peripheral angiopathy with gangrene; I75.89 Atheroembolism of other site; Z23 Encounter for immunization; R13.10 Dysphagia, unspecified; Z20.822 Contact with and (suspected) exposure to COVID-19; D69.59 Other secondary thrombocytopenia; T45.1X5A Adverse effect of antineoplastic and immunosuppressive drugs, initial encounter; E87.6 Hypokalemia; E11.621 Type 2 diabetes mellitus with foot ulcer; Z87.891 Personal history of nicotine dependence; Z79.899 Other long term (current) drug therapy; Y84.8 Other medical procedures as the cause of abnormal reaction of the patient, or of later complication, without mention of misadventure at the time of the procedure
CPT/HCPCS: 0241U; 36415; 36569; 71045; 71046; 71260; 73620; 74177; 74230; 80048; 80053; 80202; 82947; 83036; 83605; 83735; 83880; 84100; 84145; 84478; 85025; 85610; 85730; 86850; 86900; 86901; 87040; 87070; 87077; 87081; 87147; 87186; 87205; 90686; 92526; 92610; 92611; 93005; 93010; 93306; 93312; 93325; 93925; 94668; 94760; 96125-GN; 96365-59; 96366; 96375-59; 99152; 99285-25; A9270; C1751; J0295; J0456; J0696; J1642; J1644; J1650; J2001; J2250; J2310; J2370; J2543; J2704; J3010; J3370; J3411; J3480; J7030; J7040; J7050; J7060; J7070; J7120; Q9967

== ENCOUNTER 2022-10-31 09:19 | Emergency (ER) | payer OTHER ==
[~2022-10-31] VITALS: Ht 170.2 cm; Wt 72.6 kg
[~2022-10-31 09:19] MED LIST changes: +DEXA4; +NYSTRIT TOP; +VANCOMYCIN HCL750 MG IV; +VISBIOME 112.51 EACH PT; +ZINC OXIDE57 GM TOP
[2022-10-31] MEDS ORDERED: ATOR10 (11:31)
== END 2022-10-31 12:59 | disposition home or self-care (01) ==
LOC: ER 09:19
DX: Z43.1 Encounter for attention to gastrostomy (principal); Z79.899 Other long term (current) drug therapy; Z79.4 Long term (current) use of insulin; E11.9 Type 2 diabetes mellitus without complications
CPT/HCPCS: 99282

== ENCOUNTER 2024-05-06 17:47 | Emergency (ER) | payer OTHER ==
[~2024-05-06] VITALS: Ht 172.7 cm; Wt 81.7 kg
[~2024-05-06 17:47] MED LIST changes: +ATOR10; +Aspir 8181 MG; +IBUP400; +LISI20
[2024-05-06 18:50] LABS: BASOPHILS ABSOLUTE AUTO 0.03 K/mm3 (0.00-0.23); BASOPHILS PERCENT AUTO 0 % (0-2); EOSINOPHILS PERCENT AUTO 0 % (0-6); Hematocrit 41.4 % (37.0-53.0); Hemoglobin 13.6 g/dL (13.5-17.5); IMMATURE GRAN ABSOLUTE AUTO 0.09 K/mm3 (0.00-0.10); IMMATURE GRAN PERCENT AUTO 1 % (0-1); LYMPHOCYTES ABSOLUTE AUTO 0.59 K/mm3 (0.84-5.20); LYMPHOCYTES PERCENT AUTO 5 % (21-46); MONOCYTES ABSOLUTE AUTO 0.52 K/mm3 (0.16-1.47); MONOCYTES PERCENT AUTO 5 % (4-13); Mean Corpuscular HGB 30.8 pg (26.0-34.0); Mean Corpuscular HGB Conc 32.9 g/dL (31.5-36.5); Mean Corpuscular Volume 94 fL (80-100); Mean Platelet Volume 9.6 fL (9.1-12.4); NEUTROPHILS ABSOLUTE AUTO 10.33 K/mm3 (1.96-9.15); NEUTROPHILS PERCENT AUTO 89 % (41-73); Platelet Count 151 K/mm3 (150-400); RDW Coefficient Variation 12.8 % (11.7-14.2); RDW Standard Deviation 43.8 fL (35.1-46.3); Red Blood Cell Count 4.42 M/mm3 (4.30-5.90); White Blood Cell Count 11.56 K/mm3 (4.00-11.30)
[2024-05-06 19:16] LABS: Albumin, Blood 3.2 g/dL (3.4-5.0); Albumin/Globulin Ratio 0.7 (0.8-1.8); Bilirubin, Total 0.5 mg/dL (0.1-1.0); Bun/Creatinine Ratio 13.6 (12.0-20.0); Calcium, Blood 8.3 mg/dL (8.5-10.1); Creatinine, Blood 1.32 mg/dL (0.60-1.20); Globulin, Blood 4.9 g/dL (2.2-4.0); Potassium, Blood 4.5 mmol/L (3.5-5.5); Total Protein, Blood 8.1 g/dL (6.4-8.2)
[2024-05-06] MEDS ORDERED: Ondansetron HCl 2 MG / ML 2ML Vial IV PRN (19:45)
[2024-05-06] MEDS ORDERED: Lactated Ringer's 1,000 ML IV ONE (19:45)
[2024-05-06 20:14] LABS: Influenza A, PCR NEGATIVE (NEGATIVE); Influenza B, PCR NEGATIVE (NEGATIVE); Resp Syncytial Virus, PCR NEGATIVE (NEGATIVE); SARS-Cov-2 (COVID-19) PCR, MMC NEGATIVE (NEGATIVE)
[2024-05-06 20:35] LABS: Source, Urine Clean Catch
[2024-05-06 20:38] LABS: Bilirubin, Urine Neg (Neg); Blood, Urine 5+ (Neg); Glucose Qualitative, Urine Neg (Neg); Ketones, Urine Neg (Neg); Leukocyte Esterase, Urine 2+ (Neg); Nitrite, Urine Neg (Neg); Protein, Urine 3+ (Neg); Urobilinogen, Urine NORM (Normal)
[2024-05-06 20:48] LABS: Appearance, Urine Hazy (Clear); Color, Urine Yellow (P-Yellow)
[2024-05-06 20:49] LABS: Amorphous Light (0-Heavy); Bacteria Few /hpf; Red Blood Cells, Urine 0-2 /hpf (0-2); Squamous Epithelial Cells Rare /hpf (Few)
[2024-05-06] MEDS ORDERED: RX Prepack 2 Tabs Ondansetron ODT 4MG UD ONE (22:10)
[2024-05-06 22:15] VITALS: BP 154/80
[2024-05-06] MEDS ORDERED: ONDA4ODT SL (22:16)
== END 2024-05-06 22:33 | disposition home or self-care (01) ==
LOC: ER 17:47
PROVIDERS: Emergency Medicine
DX: R11.2 Nausea with vomiting, unspecified (principal); Z93.3 Colostomy status; E11.9 Type 2 diabetes mellitus without complications; Z79.899 Other long term (current) drug therapy; Z79.82 Long term (current) use of aspirin
CPT/HCPCS: 0241U; 74177; 80053; 81001; 83690; 85025; 87086; 93005; 93010; 99285-25; A9270; J2405; J7120; Q9967

== ENCOUNTER 2024-07-25 10:13 | Inpatient (IN) | payer OTHER ==
[~2024-07-25] VITALS: Ht 172.7 cm; Wt 70.3 kg
[~2024-07-25 10:13] MED LIST changes: -ATOR10; +ATOR40TA PO; -LISI20; +LISI20 PO; +ONDA4ODT SL
[2024-07-25 10:41] LABS: BASOPHILS ABSOLUTE AUTO 0.03 K/mm3 (0.00-0.23); BASOPHILS PERCENT AUTO 0 % (0-2); EOSINOPHILS ABSOLUTE AUTO 0.12 K/mm3 (0.00-0.68); EOSINOPHILS PERCENT AUTO 1 % (0-6); Hematocrit 40.6 % (37.0-53.0); Hemoglobin 13.2 g/dL (13.5-17.5); IMMATURE GRAN ABSOLUTE AUTO 0.05 K/mm3 (0.00-0.10); IMMATURE GRAN PERCENT AUTO 1 % (0-1); LYMPHOCYTES ABSOLUTE AUTO 1.77 K/mm3 (0.84-5.20); LYMPHOCYTES PERCENT AUTO 20 % (21-46); MONOCYTES ABSOLUTE AUTO 0.57 K/mm3 (0.16-1.47); MONOCYTES PERCENT AUTO 7 % (4-13); Mean Corpuscular HGB 30.8 pg (26.0-34.0); Mean Corpuscular HGB Conc 32.5 g/dL (31.5-36.5); Mean Corpuscular Volume 95 fL (80-100); Mean Platelet Volume 9.5 fL (9.1-12.4); NEUTROPHILS ABSOLUTE AUTO 6.28 K/mm3 (1.96-9.15); NEUTROPHILS PERCENT AUTO 71 % (41-73); Platelet Count 176 K/mm3 (150-400); RDW Coefficient Variation 13.7 % (11.7-14.2); RDW Standard Deviation 47.3 fL (35.1-46.3); Red Blood Cell Count 4.28 M/mm3 (4.30-5.90); White Blood Cell Count 8.82 K/mm3 (4.00-11.30)
[2024-07-25] MEDS ORDERED: Aspirin 325 MG Tab PO ONE (10:50)
[2024-07-25 11:14] LABS: Albumin, Blood 3.3 g/dL (3.4-5.0); Albumin/Globulin Ratio 0.7 (0.8-1.8); Bilirubin, Total 0.5 mg/dL (0.1-1.0); Bun/Creatinine Ratio 19.8 (12.0-20.0); Creatinine, Blood 0.96 mg/dL (0.60-1.20); Globulin, Blood 4.5 g/dL (2.2-4.0); Potassium, Blood 4.1 mmol/L (3.5-5.5); Total Protein, Blood 7.8 g/dL (6.4-8.2)
[2024-07-25] MEDS ORDERED: METF500 PO (11:26)
[2024-07-25] MEDS ORDERED: FLU VACC TS2024-25(6MOS UP)/PF 45 MCG/0.5 ML SYRINGE IM ONE (12:50)
[2024-07-25] MEDS ORDERED: Aspirin 81 MG Chew PO SCH (13:00)
[2024-07-25] MEDS ORDERED: Labetalol HCL 5 MG/ML 4ML Injection (Single Dose) IV PRN (13:05)
[2024-07-25 15:43] VITALS: BP 197/102
[2024-07-25 16:22] LABS: CHOL/HDL RATIO 2.5; Cholesterol 117 mg/dL (50-200); HDL Cholesterol 47 mg/dL (>39); Low Density Lipoprotein Chol 49 mg/dL (0-110); Triglycerides 106 mg/dL (30-160); Very Low Density Lipoprot Chol 21 mg/dL (6-32)
[2024-07-25] MEDS ORDERED: Lactated Ringer's 1,000 ML IV SCH (17:00)
[2024-07-25] MEDS ORDERED: Insulin Human Lispro 100 Units/ML 3ML Syringe SC SCH (18:00)
--- NOTE | 2024-07-25 19:41 | NUR ---
Pt admitted to floor at 1530, VSS except for high BP of 197/102, MD aware, denies SOB, denies any pain, A-Ox4 with R side weakness and facial droop, word finding and slurred speech, on bedrest, on RA. Lungs clear, heart regular, NS on tele, bowel sounds normative, colostomy leaking, applience changed new applience C/D/I, sensation intact, NPO due to high risk of aspiration. Pt can make needs known, call barnard in hand, bed in lowest position.
[2024-07-25 20:10] VITALS: BP 165/82
[2024-07-25] MEDS ORDERED: Miconazole Nitrate 2% 85 GM PWD TOP SCH (21:00)
[2024-07-26 04:52] LABS: BASOPHILS ABSOLUTE AUTO 0.03 K/mm3 (0.00-0.23); BASOPHILS PERCENT AUTO 0 % (0-2); EOSINOPHILS ABSOLUTE AUTO 0.13 K/mm3 (0.00-0.68); EOSINOPHILS PERCENT AUTO 2 % (0-6); Hematocrit 37.5 % (37.0-53.0); Hemoglobin 12.2 g/dL (13.5-17.5); IMMATURE GRAN ABSOLUTE AUTO 0.05 K/mm3 (0.00-0.10); IMMATURE GRAN PERCENT AUTO 1 % (0-1); LYMPHOCYTES ABSOLUTE AUTO 1.69 K/mm3 (0.84-5.20); LYMPHOCYTES PERCENT AUTO 19 % (21-46); MONOCYTES ABSOLUTE AUTO 0.66 K/mm3 (0.16-1.47); MONOCYTES PERCENT AUTO 7 % (4-13); Mean Corpuscular HGB Conc 32.5 g/dL (31.5-36.5); Mean Corpuscular Volume 95 fL (80-100); Mean Platelet Volume 9.7 fL (9.1-12.4); NEUTROPHILS ABSOLUTE AUTO 6.34 K/mm3 (1.96-9.15); NEUTROPHILS PERCENT AUTO 71 % (41-73); Platelet Count 172 K/mm3 (150-400); RDW Coefficient Variation 13.8 % (11.7-14.2); RDW Standard Deviation 48.6 fL (35.1-46.3); Red Blood Cell Count 3.93 M/mm3 (4.30-5.90)
[2024-07-26 05:11] VITALS: BP 177/87
[2024-07-26 05:14] LABS: Bun/Creatinine Ratio 16.8 (12.0-20.0); Calcium, Blood 8.9 mg/dL (8.5-10.1); Creatinine, Blood 0.96 mg/dL (0.60-1.20)
--- NOTE | 2024-07-26 05:45 | NUR ---
SHIFT SUMMARY - NO ACUTE CHANGES THROUGHOUT THIS SHIFT. PT IS SLOW TO RESPOND BUT IS ABLE TO MAKE HIS NEEDS KNOWN. PT FOLLOWS INSTRUCTIONS WITHOUT COMPLICATIONS. PT IS PLEASANT AND COOPERATIVE WITH CARE. IV FLUIDS INFUSING WITHOUT DIFFICULTY. CALL LIGHT WITHIN REACH. BED IN LOW POSITION. BED ALARM ON FOR SAFETY. NEURO CHECKS HAVE REMAINED THE SAME THROUGHOUT THE NIGHT, SEE ASSESSMENT FINDINGS. WILL CONTINUE TO MONITOR UNTIL AM SHIFT CHANGE. ORAL CARE PROVIDED X2 TONIGHT.
[2024-07-26 07:57] VITALS: BP 186/89
[2024-07-26] MEDS ORDERED: Atorvastatin 40 MG Tab PO SCH (09:00)
[2024-07-26] MEDS ORDERED: Clopidogrel Bisulfate 75 MG Tab PO SCH (09:00)
[2024-07-26] MEDS ORDERED: Enoxaparin 40 MG/0.4 ML SYR SC SCH (09:00)
[2024-07-26] MEDS ORDERED: Labetalol HCL 5 MG/ML 4ML Injection (Single Dose) IV PRN (10:30)
[2024-07-26] MEDS ORDERED: Lisinopril 20 MG Tab PO SCH ×2 (11:00)
[2024-07-26 15:13] VITALS: BP 185/84
--- NOTE | 2024-07-26 15:45 | NUR ---
VSS except for high BP of 185/84, aware, denies SOB, denies any pain, ambulates with 1x assist and walker, A-Ox4 with R-side weakness, R facial droop and slurred speach, on RA. Lungs diminish with rhonchi in bases, heart regular, NS on tele, bowel sounds normative, ostomy in place with moderate soft brown stool output. Pt is strict NPO, pills crushed in apple sauce and head 90 degrees up. Pt can make needs known, call barnard in hand, bed in lowest position.
[2024-07-26 20:29] VITALS: BP 199/88
[2024-07-27 02:57] VITALS: BP 183/83
[2024-07-27 04:53] LABS: Hematocrit 36.4 % (37.0-53.0); Hemoglobin 11.9 g/dL (13.5-17.5); Mean Corpuscular HGB 30.9 pg (26.0-34.0); Mean Corpuscular HGB Conc 32.7 g/dL (31.5-36.5); Mean Corpuscular Volume 95 fL (80-100); Mean Platelet Volume 9.5 fL (9.1-12.4); Platelet Count 162 K/mm3 (150-400); RDW Coefficient Variation 13.3 % (11.7-14.2); RDW Standard Deviation 46.5 fL (35.1-46.3); Red Blood Cell Count 3.85 M/mm3 (4.30-5.90); White Blood Cell Count 8.83 K/mm3 (4.00-11.30)
[2024-07-27 05:41] LABS: Bun/Creatinine Ratio 15.6 (12.0-20.0); Calcium, Blood 8.8 mg/dL (8.5-10.1); Creatinine, Blood 0.83 mg/dL (0.60-1.20); Potassium, Blood 3.8 mmol/L (3.5-5.5)
--- NOTE | 2024-07-27 07:25 | NUR ---
SHIFT SUMMARY NOC PT A/O X 4. PLEASANT AND COOPERATIVE WITH CARE. BP STILL ELEVATED POST CVA, PERMISSIVE HTN IN PLACE @ [address] IN LLQ WITH DE OLIVEIRA SIFT STOOLS. QGH CBG. PT NPO STILL DUE TO HIGH ASPIRATION RISK. INFUSION OF LR @ 110 ML/HR FOR MAINTENCE FLUIDS. THERE HAVE NOT BEEN ANY ACUTE CHANGES IN NEURO CHECKS. ORAL CARE PROVIDED PER PT REQUEST. ON TELE SINUS RHYTHM/BBB IN 70'S. PT CURRENTLY RESTING WITH BED IN LOWEST POSITION, AND CALL LIGHT WITHIN REACH.
[2024-07-27 07:34] VITALS: BP 184/82
[2024-07-27] MEDS ORDERED: AmLODIPine Besylate 5 MG Tab PO SCH (13:00)
[2024-07-27] MEDS ORDERED: Aa 4.25%/Calcium/Lytes/D5w 1,000 ML IV SCH (14:50)
[2024-07-27 15:56] VITALS: BP 174/86
--- NOTE | 2024-07-27 16:38 | NUR ---
VSS, A-Ox4 with R-side weakness, slight R facial droop and slurred speech, denies SOB, denies any pain, ambulates with 1x assist and walker, on RA. Lungs diminished, heart regular, NS on tele, bowel sounds normative, colostomy place with soft brown output, incontine of urine at times, stirct NPO. Pt can make needs known, call barnard in hand, bed in lowest position.
[2024-07-27 20:07] VITALS: BP 186/69
[2024-07-28 04:14] VITALS: BP 160/65
[2024-07-28 04:48] LABS: Hematocrit 34.8 % (37.0-53.0); Hemoglobin 11.5 g/dL (13.5-17.5)
--- NOTE | 2024-07-28 06:00 | NUR ---
SHIFT SUMMARY NOC PT A/O X 4. PLEASANT AND COOPERATIVE WITH CARE. BP THIS AM 160/65.. R SIDE STRENGTH AND SENSATION IS IMPROVING, WELL LESS SLURRING OF SPEECH. CLINIMIX @ 100 ML/HR IS INFUSING. Q6H CBG CHECKS IN PLACE 157 WITH 1 UNIT SHORT ACTING INSULIN GIVEN PER SLIDING SCALE, AND ). ON TELE SINUS RHTHYM IN 70'S. REDNESS IN DELMIS AREA AND PANNUS IMPROVING WITH MEDICATED POWDER REGIMEN.PT CURRENTLY RESTING WITH BED IN LOWEST POSITION, AND CALL LIGHT WITHIN REACH.
[2024-07-28 08:08] VITALS: BP 184/88
[2024-07-28] MEDS ORDERED: AmLODIPine Besylate 5 MG Tab PO SCH (12:00)
[2024-07-28 15:40] VITALS: BP 167/82
--- NOTE | 2024-07-28 19:23 | NUR ---
SHIFT SUMMARY PT A&OX3, REPORTED IT WAS WRONG MONTH. PT ADMITTED DUE TO L SIDE CVA. PT HAS HX OF CVA. PT HAS R SIDE DEFICITES. PT HAD IMPROVEMENT OF FACIAL DROOPING DURING SHIFT. PT HAS URGENCY WITH VOIDING, BRIEF IN PLACE. PT HAS COLOSTOMY. PT ON TELE. PT ON RA. PT HAS CLINOMAX RUNNING AT 100 ML/HR PER MD CONTINUE THROUGH NIGHT. VSS. PT ATE DINNER TONIGHT, PURREED DIET PT DID COUGH WITH BITES AND WAS ABLE TO CLEAR FOOD. PT SITTING UPRIGHT NEEDED FREQUENT REMINDERS TO TAKE SMALL BITES. NO CHOKING WITH SMALL BITE OBSERVED, PT CALLS APPROPRIATE, CALL LIGHT IN REACH. PT IS SBA WITH FWW.
[2024-07-28 19:43] VITALS: BP 139/66
[2024-07-29 02:37] VITALS: BP 154/80
--- NOTE | 2024-07-29 05:09 | NUR ---
SHIFT SUMMARY: Pt is admitted for ischemic CVA and is a full code. Is alert and able to make needs known. ADLs have been mostly 1p but did not get out of bed. Denies pain or discomfort when asked. Telly reports sinus in the 80s. Colostomy to lower left ABD is intact with appliance in place. Minimal output noted. Running clindamix at 100ml to IV.
[2024-07-29 05:39] LABS: BASOPHILS ABSOLUTE AUTO 0.04 K/mm3 (0.00-0.23); BASOPHILS PERCENT AUTO 0 % (0-2); EOSINOPHILS ABSOLUTE AUTO 0.19 K/mm3 (0.00-0.68); EOSINOPHILS PERCENT AUTO 2 % (0-6); Hematocrit 34.7 % (37.0-53.0); Hemoglobin 11.8 g/dL (13.5-17.5); IMMATURE GRAN ABSOLUTE AUTO 0.05 K/mm3 (0.00-0.10); IMMATURE GRAN PERCENT AUTO 1 % (0-1); LYMPHOCYTES ABSOLUTE AUTO 1.53 K/mm3 (0.84-5.20); LYMPHOCYTES PERCENT AUTO 16 % (21-46); MONOCYTES ABSOLUTE AUTO 0.74 K/mm3 (0.16-1.47); MONOCYTES PERCENT AUTO 8 % (4-13); Mean Corpuscular HGB 31.5 pg (26.0-34.0); Mean Corpuscular Volume 93 fL (80-100); Mean Platelet Volume 9.5 fL (9.1-12.4); NEUTROPHILS ABSOLUTE AUTO 7.02 K/mm3 (1.96-9.15); NEUTROPHILS PERCENT AUTO 73 % (41-73); Platelet Count 156 K/mm3 (150-400); RDW Coefficient Variation 13.1 % (11.7-14.2); RDW Standard Deviation 44.4 fL (35.1-46.3); Red Blood Cell Count 3.75 M/mm3 (4.30-5.90); White Blood Cell Count 9.57 K/mm3 (4.00-11.30)
[2024-07-29 06:39] LABS: Albumin, Blood 2.7 g/dL (3.4-5.0); Albumin/Globulin Ratio 0.7 (0.8-1.8); Bilirubin, Total 0.4 mg/dL (0.1-1.0); Bun/Creatinine Ratio 31.3 (12.0-20.0); Calcium, Blood 8.8 mg/dL (8.5-10.1); Creatinine, Blood 0.83 mg/dL (0.60-1.20); Globulin, Blood 3.9 g/dL (2.2-4.0); Potassium, Blood 3.9 mmol/L (3.5-5.5); Total Protein, Blood 6.6 g/dL (6.4-8.2)
[2024-07-29 07:36] VITALS: BP 162/78
[2024-07-29] MEDS ORDERED: Insulin Human Lispro 100 Units/ML 3ML Syringe SC SCH (11:30)
[2024-07-29 15:24] VITALS: BP 123/68
--- NOTE | 2024-07-29 15:52 | NUR ---
"Spiritual Care Visit | Pt. request Pt. is sitting up in a recliner when he welcomes my visit. Pt. is pleasant. Facilitated a life review. Pt. verbalized details of his past familiy hisitory and how he has held on to his kinjal. Matters of kinjal and beleif are considered. Pt. displayed evidence of full engagement and awareness. Prayed with Pt. Pt. verbalized gratitude for the spiritual care visit and welcomed this livestock commission agent to return"
--- NOTE | 2024-07-29 16:08 | NUR ---
SHIFT SUMMARY PT IS A&0x4. PT ADMITTED DUE TO L ISCHEMIC CVA. PT HAS SOME R SIDE DEFICITS. PREFORMED Q4 NEURO CHECKS. NO ACUTE CHANGES DURING SHIFT. PT ON TELE. PT ON CONT. PULSE OX. AND ON ROOM AIR. SATS ARE 94%. PT SAW PHYSICAL THERAPY AND SPEECH EVAL. PT ON TELE. PT SAT IN CHAIR FOR MEALS AND ATE PURRED DIET WITH MINIMAL COUGHING. PT WAS SUPERVISED DURING MEALS. PT AMBULATED WITH FWW AND GB WITH PT. PT USES URINAL BUT HAS URGENCY/FREQUENCY AND DOESN'T ALWAYS MAKE IT TO URINAL. PT WEARING ATTENDS. PT ABLE TO MAKE NEEDS KNOWN, AND CALL LIGHT IN REACH. PLAN IS FOR PT TO BE DISCHARGED TO SNF. VSS.
[2024-07-29 19:14] VITALS: BP 127/74
[2024-07-30 02:52] VITALS: BP 130/71
[2024-07-30 06:08] LABS: BASOPHILS ABSOLUTE AUTO 0.04 K/mm3 (0.00-0.23); BASOPHILS PERCENT AUTO 0 % (0-2); EOSINOPHILS ABSOLUTE AUTO 0.17 K/mm3 (0.00-0.68); EOSINOPHILS PERCENT AUTO 2 % (0-6); Hematocrit 37.1 % (37.0-53.0); IMMATURE GRAN ABSOLUTE AUTO 0.05 K/mm3 (0.00-0.10); IMMATURE GRAN PERCENT AUTO 1 % (0-1); LYMPHOCYTES ABSOLUTE AUTO 1.76 K/mm3 (0.84-5.20); LYMPHOCYTES PERCENT AUTO 19 % (21-46); MONOCYTES ABSOLUTE AUTO 0.72 K/mm3 (0.16-1.47); MONOCYTES PERCENT AUTO 8 % (4-13); Mean Corpuscular HGB 30.8 pg (26.0-34.0); Mean Corpuscular HGB Conc 32.3 g/dL (31.5-36.5); Mean Corpuscular Volume 95 fL (80-100); Mean Platelet Volume 9.9 fL (9.1-12.4); NEUTROPHILS ABSOLUTE AUTO 6.58 K/mm3 (1.96-9.15); NEUTROPHILS PERCENT AUTO 71 % (41-73); Platelet Count 160 K/mm3 (150-400); RDW Coefficient Variation 13.3 % (11.7-14.2); RDW Standard Deviation 46.5 fL (35.1-46.3); White Blood Cell Count 9.32 K/mm3 (4.00-11.30)
[2024-07-30 06:30] LABS: Albumin, Blood 2.8 g/dL (3.4-5.0); Albumin/Globulin Ratio 0.7 (0.8-1.8); Bilirubin, Total 0.3 mg/dL (0.1-1.0); Bun/Creatinine Ratio 31.5 (12.0-20.0); Calcium, Blood 8.4 mg/dL (8.5-10.1); Creatinine, Blood 0.92 mg/dL (0.60-1.20); Globulin, Blood 4.1 g/dL (2.2-4.0); Potassium, Blood 4.4 mmol/L (3.5-5.5); Total Protein, Blood 6.9 g/dL (6.4-8.2)
--- NOTE | 2024-07-30 06:49 | NUR ---
Shift Summary Pt strength is weak but nearly equal on both sides. Minimal R sided facial droop, no slurring of words. Eyes are PERRLA. Pt able to ambulate with two assist and FWW, he still has significant overall weakness. He voids in the urinal most times, attends changed as needed. He is AOx3-4, cooperative with care.
[2024-07-30 07:35] VITALS: BP 152/71
[2024-07-30 15:28] VITALS: BP 143/78
--- NOTE | 2024-07-30 18:01 | NUR ---
SHIFT SUMMARY PT A&OX4. PT ADMITTED DUE TO L CVA WITH R SIDE DEFICITS. NO ACUTE CHANGES DURING SHIFT PT WORKED WITH SPEECH EVAL AND PT TODAY DURING SHIFT. PT IS SBA WITH FWW. NOTICED IMPROVEMENT WITH R SIDE DEFICITS EVIDENCED BY PT MORE STEADY ON FEET, AND R SIDE ARM STRENGTH IMPROVEMENT. PT ON PURREED DIET WITH SUPERVISION, PT SHOWED IMPROVEMENT BY MINIMAL COUGHING BETWEEN DURING MEALTIME. PT HAS BEEN SITTING IN CHAIR THROUGH SHIFT. VSS. PT HAS OSTOMY. PT HAS URGENCY/FREQ. WITH VOIDING. NO FACIAL DROOP NOTED, PT REPORTS NO PAIN. PT CALLS APPROPRIATELY. PT CALL LIGHT IN REACH. PLAN TO DISCHARGE TO SNF, WAITING FOR INSURANCE AUTH.
[2024-07-30 19:37] VITALS: BP 156/81
--- NOTE | 2024-07-31 03:15 | NUR ---
CONSULTANT DIETITIAN SUMMARY NO CHANGES OVERNIGHT. PTS RIGHT SIDE CONTINUES TO BE SLIGHTLY WEAKER THAN LEFT SIDE. ALL SNACKS AND DRINKS OF THICKENED WATER SUPERVISED AND PT APPEARS TO BE DOING WELL WITH HIS SWALLOW PRECAUTIONS. NO SIGNS OF ASPIRATION ON CURRENT DIET. ANTICIPATING DISCHARGE TO SNF ONCE INSURANCE AUTHORIZATION COMPLETE.
[2024-07-31 04:45] VITALS: BP 149/78
[2024-07-31 04:50] LABS: BASOPHILS ABSOLUTE AUTO 0.04 K/mm3 (0.00-0.23); BASOPHILS PERCENT AUTO 0 % (0-2); EOSINOPHILS PERCENT AUTO 2 % (0-6); Hematocrit 36.9 % (37.0-53.0); Hemoglobin 11.9 g/dL (13.5-17.5); IMMATURE GRAN ABSOLUTE AUTO 0.06 K/mm3 (0.00-0.10); IMMATURE GRAN PERCENT AUTO 1 % (0-1); LYMPHOCYTES ABSOLUTE AUTO 1.48 K/mm3 (0.84-5.20); LYMPHOCYTES PERCENT AUTO 16 % (21-46); MONOCYTES ABSOLUTE AUTO 0.78 K/mm3 (0.16-1.47); MONOCYTES PERCENT AUTO 8 % (4-13); Mean Corpuscular HGB 30.8 pg (26.0-34.0); Mean Corpuscular HGB Conc 32.2 g/dL (31.5-36.5); Mean Corpuscular Volume 96 fL (80-100); Mean Platelet Volume 9.9 fL (9.1-12.4); NEUTROPHILS ABSOLUTE AUTO 6.78 K/mm3 (1.96-9.15); NEUTROPHILS PERCENT AUTO 73 % (41-73); Platelet Count 159 K/mm3 (150-400); RDW Coefficient Variation 13.5 % (11.7-14.2); RDW Standard Deviation 47.4 fL (35.1-46.3); Red Blood Cell Count 3.86 M/mm3 (4.30-5.90); White Blood Cell Count 9.34 K/mm3 (4.00-11.30)
[2024-07-31 05:09] LABS: Albumin, Blood 2.7 g/dL (3.4-5.0); Albumin/Globulin Ratio 0.6 (0.8-1.8); Bilirubin, Total 0.3 mg/dL (0.1-1.0); Bun/Creatinine Ratio 25.2 (12.0-20.0); Calcium, Blood 8.4 mg/dL (8.5-10.1); Creatinine, Blood 0.91 mg/dL (0.60-1.20); Globulin, Blood 4.2 g/dL (2.2-4.0); Potassium, Blood 4.6 mmol/L (3.5-5.5); Total Protein, Blood 6.9 g/dL (6.4-8.2)
[2024-07-31 07:26] VITALS: BP 145/79
[2024-07-31 11:23] LABS: SARS-Cov-2 (COVID-19) PCR, MMC NEGATIVE (NEGATIVE)
--- NOTE | 2024-07-31 15:17 | NUR ---
VSS, denies SOB, A-Ox4 with R-side weakness and slight slurred speech, denies any pain, ambulate with 1x assist and walker, on RA. Lungs clear, heart regular, bowel sounds normative, on purreed diet, moderate thick liquids with spoon, tolarating well. Pt D/C at 1330, report given to [facility], safety ensured
[2024-07-31] MEDS ORDERED: ASPI81CH PO (16:49)
[2024-07-31] MEDS ORDERED: AMLO10 PO (16:49)
[2024-07-31] MEDS ORDERED: CLOP75 PO (16:50)
--- NOTE | 2024-07-31 17:05 | NUR ---
METFORMIN FREQUENCY DISCHARGE ORDER THIS RN TALKED WITH DR. SENIOR ABOUT PT'S METFORM ORDER NOT HAVING A FREQUENCY. DR. SENIOR ORDERED FOR PT TO HAVE METFORMIN 500 MG PO BID. THIS RN WROTE A VERBAL ON MEDICATION DISCHARGE ORDER AND CALLED [facility] AND NOTIFIED THEM OF THE FREQUENCY.
== END 2024-07-31 13:39 | DRG 64 ==
LOC: ER 10:13 → MEDS 10:14 → ENPENDDIS 07-31 11:26 → MEDS 07-31 13:39
PROVIDERS: Emergency Medicine; Internal Medicine; ADMIT Hospitalist
DX: I63.89 Other cerebral infarction (principal); G93.6 Cerebral edema; G81.91 Hemiplegia, unspecified affecting right dominant side; R47.01 Aphasia; R29.810 Facial weakness; R47.81 Slurred speech; E11.65 Type 2 diabetes mellitus with hyperglycemia; R13.10 Dysphagia, unspecified; I10 Essential (primary) hypertension; R47.1 Dysarthria and anarthria; Z23 Encounter for immunization; Z93.3 Colostomy status; Z85.038 Personal history of other malignant neoplasm of large intestine; Z93.1 Gastrostomy status; Z98.890 Other specified postprocedural states; Z79.84 Long term (current) use of oral hypoglycemic drugs; Z79.82 Long term (current) use of aspirin; Z79.899 Other long term (current) drug therapy
CPT/HCPCS: 36415; 70450; 70496; 70498; 80048; 80053; 80061; 82947; 83036; 85014; 85018; 85025; 85027; 92523; 92526; 92610; 93005; 93010; 93306; 94762; 96372; 97110; 97116; 97162; 97166; 97530; 99285-25; A9270; G0378; J1650; J7120; Q9967; U0002

== ENCOUNTER 2024-12-11 17:07 | Inpatient (IN) | payer OTHER ==
[~2024-12-11] VITALS: Ht 177.8 cm; Wt 84.7 kg
[~2024-12-11 17:07] MED LIST changes: +AMLO10 PO; +ASPI81CH PO; +CLOP75 PO; -LISI20 PO; +METF500 PO; +ZESTRIL40 M1 PO
[2024-12-11 18:34] LABS: BASOPHILS ABSOLUTE AUTO 0.02 K/mm3 (0.00-0.23); BASOPHILS PERCENT AUTO 0 % (0-2); EOSINOPHILS ABSOLUTE AUTO 0.04 K/mm3 (0.00-0.68); EOSINOPHILS PERCENT AUTO 1 % (0-6); Hematocrit 39.4 % (37.0-53.0); Hemoglobin 12.9 g/dL (13.5-17.5); IMMATURE GRAN ABSOLUTE AUTO 0.03 K/mm3 (0.00-0.10); IMMATURE GRAN PERCENT AUTO 1 % (0-1); LYMPHOCYTES ABSOLUTE AUTO 0.86 K/mm3 (0.84-5.20); LYMPHOCYTES PERCENT AUTO 16 % (21-46); MONOCYTES ABSOLUTE AUTO 0.43 K/mm3 (0.16-1.47); MONOCYTES PERCENT AUTO 8 % (4-13); Mean Corpuscular HGB 30.8 pg (26.0-34.0); Mean Corpuscular HGB Conc 32.7 g/dL (31.5-36.5); Mean Corpuscular Volume 94 fL (80-100); Mean Platelet Volume 11.1 fL (9.1-12.4); NEUTROPHILS ABSOLUTE AUTO 3.94 K/mm3 (1.96-9.15); NEUTROPHILS PERCENT AUTO 74 % (41-73); Platelet Count 58 K/mm3 (150-400); RDW Coefficient Variation 14.4 % (11.7-14.2); RDW Standard Deviation 49.1 fL (35.1-46.3); Red Blood Cell Count 4.19 M/mm3 (4.30-5.90); White Blood Cell Count 5.32 K/mm3 (4.00-11.30)
[2024-12-11 18:53] LABS: Source, Urine Clean Catch
[2024-12-11 19:02] LABS: Bilirubin, Urine Neg (Neg); Blood, Urine 2+ (Neg); Color, Urine Yellow (P-Yellow); Glucose Qualitative, Urine 4+ (Neg); Ketones, Urine Neg (Neg); Leukocyte Esterase, Urine 1+ (Neg); Nitrite, Urine Neg (Neg); Protein, Urine 3+ (Neg); Urobilinogen, Urine NORM (Normal)
[2024-12-11 19:07] LABS: Albumin, Blood 3.3 g/dL (3.4-5.0); Albumin/Globulin Ratio 0.7 (0.8-1.8); Bilirubin, Total 0.2 mg/dL (0.1-1.0); Bun/Creatinine Ratio 33.8 (12.0-20.0); Calcium, Blood 9.6 mg/dL (8.5-10.1); Creatinine, Blood 0.83 mg/dL (0.60-1.20); Potassium, Blood 5.5 mmol/L (3.5-5.5); Total Protein, Blood 8.3 g/dL (6.4-8.2)
[2024-12-11 19:18] LABS: Influenza A, PCR NEGATIVE (NEGATIVE); Influenza B, PCR NEGATIVE (NEGATIVE); Resp Syncytial Virus, PCR NEGATIVE (NEGATIVE); SARS-Cov-2 (COVID-19) PCR, MMC NEGATIVE (NEGATIVE)
[2024-12-11 19:25] LABS: Appearance, Urine Hazy (Clear)
[2024-12-11 19:27] LABS: Bacteria Mod /hpf; Squamous Epithelial Cells Rare /hpf (Few)
[2024-12-11 19:28] LABS: Hyaline Casts 0-2 /lpf (0-2)
[2024-12-11] MEDS ORDERED: CefTRIAXone Sodium 1,000 MG in NS 50 ML IV ONE (19:55)
[2024-12-12 01:00] VITALS: BP 126/75
[2024-12-12] MEDS ORDERED: FLU VACC TS2024-25(6MOS UP)/PF 45 MCG/0.5 ML SYRINGE IM ONE ×2 (01:00→06:00)
[2024-12-12 01:08] VITALS: BP 130/76
[2024-12-12 04:01] LABS: BASOPHILS ABSOLUTE AUTO 0.02 K/mm3 (0.00-0.23); BASOPHILS PERCENT AUTO 0 % (0-2); EOSINOPHILS ABSOLUTE AUTO 0.04 K/mm3 (0.00-0.68); EOSINOPHILS PERCENT AUTO 1 % (0-6); Hematocrit 33.8 % (37.0-53.0); Hemoglobin 11.1 g/dL (13.5-17.5); IMMATURE GRAN ABSOLUTE AUTO 0.03 K/mm3 (0.00-0.10); IMMATURE GRAN PERCENT AUTO 1 % (0-1); LYMPHOCYTES ABSOLUTE AUTO 0.71 K/mm3 (0.84-5.20); LYMPHOCYTES PERCENT AUTO 11 % (21-46); MONOCYTES ABSOLUTE AUTO 0.48 K/mm3 (0.16-1.47); MONOCYTES PERCENT AUTO 8 % (4-13); Mean Corpuscular HGB 30.6 pg (26.0-34.0); Mean Corpuscular HGB Conc 32.8 g/dL (31.5-36.5); Mean Corpuscular Volume 93 fL (80-100); Mean Platelet Volume 10.7 fL (9.1-12.4); NEUTROPHILS ABSOLUTE AUTO 4.95 K/mm3 (1.96-9.15); NEUTROPHILS PERCENT AUTO 80 % (41-73); NRBC ABSOLUTE 0.02 K/mm3 (0.00-0.02); NRBC Auto 0.3 /100 WBC (0.0-0.2); Platelet Count 65 K/mm3 (150-400); RDW Coefficient Variation 14.4 % (11.7-14.2); RDW Standard Deviation 48.7 fL (35.1-46.3); Red Blood Cell Count 3.63 M/mm3 (4.30-5.90); White Blood Cell Count 6.23 K/mm3 (4.00-11.30)
[2024-12-12 04:26] VITALS: BP 120/64
[2024-12-12 04:54] LABS: Albumin, Blood 3.1 g/dL (3.4-5.0); Albumin/Globulin Ratio 0.7 (0.8-1.8); Bilirubin, Total 0.2 mg/dL (0.1-1.0); Bun/Creatinine Ratio 30.9 (12.0-20.0); Creatinine, Blood 0.97 mg/dL (0.60-1.20); Globulin, Blood 4.3 g/dL (2.2-4.0); Total Protein, Blood 7.4 g/dL (6.4-8.2)
[2024-12-12] MEDS ORDERED: D5W-1/2NS 1,000 ML IV SCH (05:20)
[2024-12-12] MEDS ORDERED: CALCIUM GLUC IN NACL, ISO-OSM 50 ML IV ONE (05:40)
[2024-12-12] MEDS ORDERED: Insulin Regular 100 UNIT/ML 10ML Vial IV ONE ×2 (06:00→10:40)
[2024-12-12] MEDS ORDERED: Dextrose 50% 50 ML Vial IV ONE ×2 (06:00→10:30)
--- NOTE | 2024-12-12 06:32 | NUR ---
SHIFT SUMMARY: PT ARRIVED AT 0100 FROM THE ER WITH BEAR HUGGER IN PLACE. HE WAS A&OX4 AND REMAINED THAT WAY THROUGHOUT SHIFT. PT COMPLAINED OF DIFFICULTY SWALLOWING AND WALKING WHICH BROUGHT HIM TO THE ER. HE WAS FOUND TO BE PROFOUNDLY HYPOTHERMIC IN THE ER. HE ALSO HAS UTI. PT REMAINED ON ROOM AIR WITHOUT DIFF BREATHING. INSTALLER APPRENTICE IN PLACE, PT IN FIRST DEGREE BLOCK. HE IS NORMOTENSIVE. PT WAS WARMED TO A NORMAL TEMPERATURE AND BEAR HUGGER WAS TURNED OFF. PT HAS NOT HAD SIGNIFICANT NEURO CHANGES. HE DOES CONTINUE TO HAVE SLOW SPEECH, DIFFICULTY FINDING THE RIGHT WORDS AT TIMES AND DIFFICULTY WITH MULTI STEP DIRECTIONS OR MULTIPLE QUESTIONS. HE HAS EXHIBITED SOME TACTILE DISTURBANCES AND THINGS THAT HIS OSTOMY IS LEAKING FREQUENTLY. OVERALL PATIENT IS PLEASANT AND WELL ORIENTED.
[2024-12-12 08:00] VITALS: BP 96/58
[2024-12-12] MEDS ORDERED: Sodium Zirconium Cyclosilicate 10 GM Packet PO SCH ×2 (08:30→09:00)
[2024-12-12] MEDS ORDERED: Enoxaparin 40 MG/0.4 ML SYR SC SCH (09:00)
[2024-12-12] MEDS ORDERED: Nitrofurantoin/Nitrofuran Mac 100 MG Cap PO SCH (09:00)
[2024-12-12 10:02] LABS: Bun/Creatinine Ratio 25.2 (12.0-20.0); Calcium, Blood 9.2 mg/dL (8.5-10.1); Creatinine, Blood 1.27 mg/dL (0.60-1.20); Potassium, Blood 6.1 mmol/L (3.5-5.5)
[2024-12-12] MEDS ORDERED: Insulin Human Regular 5 UNIT in NS 100 ML IV ONE (10:30)
[2024-12-12] MEDS ORDERED: Sodium Bicarb 8.4% Inj 150 MEQ in Dextrose 5% 1,000 ML IV SCH (11:00)
[2024-12-12] MEDS ORDERED: Aspirin 300 MG Supp PR SCH (14:11)
--- NOTE | 2024-12-12 15:31 | NUR ---
Met with pt this morning at bedside. He is alert, pleasant and cooperative. He presented to the ED with his CG with weakness, slurred speech and confusion. Pt had a CVA several months ago. According to CG, pt's baseline cognition is normal. Pt has history of dysphasia and PEG tube, believed to be r/t history of colon cancer treatment. However, he no longer has a PEG tube and while he continues to be at risk for aspiration, he continues to eat a regular diet as this is his preference. He has stated he will "never again" accept a PEG tube.
[2024-12-12 15:55] LABS: Albumin, Blood 2.9 g/dL (3.4-5.0); Anion Gap 6 mmol/L (3-11); Blood Urea Nitrogen 32 mg/dL (8-24); Bun/Creatinine Ratio 23.7 (12.0-20.0); CO2, Blood 29 mmol/L (21-32); Calcium, Blood 8.5 mg/dL (8.5-10.1); Chloride, Blood 113 mmol/L (98-108); Creatinine, Blood 1.35 mg/dL (0.60-1.20); Glomerular Filtration Rate 56 (60-); Glucose, Blood 109 mg/dL (70-99); Phosphorus, Blood 3.9 mg/dL (2.5-4.9); Potassium, Blood 5.5 mmol/L (3.5-5.5); Sodium, Blood 142 mmol/L (136-145)
[2024-12-12 16:20] VITALS: BP 126/70
--- NOTE | 2024-12-12 16:39 | NUR ---
Pt filled out a Risk vs Benefit for oral intake. ST ordered NPO as pt has history of dysphasia and failed swallow eval this admission. However, the patient did not admit with aspiration or pneumonia and continues to have a strong, hard cough. He understands there is risk, but chooses to eat and drink. He is agreeable to [facility], and minced/moist texture with thin liquids.
--- NOTE | 2024-12-12 17:35 | NUR ---
SUMMARY PT A/O TO PERSON, PLACE, AND SITUATION. STATES MONTH DECEMBER AND YEAR 2004. MOVES ALL EXTREMITIES ON COMMAND. HOLDS ARMS OUT STRAIGHT WITHOUT LISTING. L MANAGER AUDIT IS WEAKER THAN R BUT PT STATES THAT IS NORMAL FOR HIM AFTER CVA. DECREASED URINE OUTPUT. SPOKE WITH DR. SENIOR ABOUT THIS AND IVF WERE ORDERED. HAD TO PROMPT PT TO VOID BUT IS ABLE TO USE URINAL. PT INITIALLY FAILED SWALLOW EVAL THIS AM BUT PT IS WANTING TO EAT AND HAS NO INTENTION OF HAVING PEG TUBE REPLACED. DR. HOLLIDAY AND PALLIATIVE CARE HAD DISCUSSION WITH PT AND WAS OK'D TO EAT AND DRINK AFTER GIVEN THE RISKS. PT TRANSFERED TO MEDICAL FLOOR RM 361, NO SIGN OF DISTRESS.
--- NOTE | 2024-12-12 18:12 | NUR ---
SHIFT SUMMARY PT TRANSFERED FROM ICU 11 THIS SHIFT TO ROOM 361. PT NOTED TO BE A&O X4 SLOW TO RESPOND AND SOMETIMES DIFFICULTY FINDING HIS WORDS. PT NOTED TO BE BEDREST ASSIST X2. PT NOTED TO HAVE MINCED AND MOICED DIET AND THIN LIQUIDS PER PT REQUEST EVEN AFTER FAILING SWALLOW STUDY. PT NOTED TO BE EATING IN AN UPRIGHT POSITION. PT NOTED TO HAVE AN OSTOMY BAG AND STOMA NOTED TO BE RED AND IRRITATED. TELEMETRY ON AND SR WITH A HR OF 90.
[2024-12-12 19:24] VITALS: BP 137/68
[2024-12-12] MEDS ORDERED: CefTRIAXone Sodium 1,000 MG in NS 100 ML IV SCH (21:00)
[2024-12-12] MEDS ORDERED: Ketoconazole120 ML TOP (23:43)
[2024-12-13 00:09] VITALS: BP 124/73
[2024-12-13 04:18] VITALS: BP 135/65
[2024-12-13 04:39] LABS: BASOPHILS ABSOLUTE AUTO 0.01 K/mm3 (0.00-0.23); BASOPHILS PERCENT AUTO 0 % (0-2); EOSINOPHILS ABSOLUTE AUTO 0.04 K/mm3 (0.00-0.68); EOSINOPHILS PERCENT AUTO 1 % (0-6); Hematocrit 31.1 % (37.0-53.0); Hemoglobin 10.1 g/dL (13.5-17.5); IMMATURE GRAN ABSOLUTE AUTO 0.01 K/mm3 (0.00-0.10); IMMATURE GRAN PERCENT AUTO 0 % (0-1); LYMPHOCYTES ABSOLUTE AUTO 1.24 K/mm3 (0.84-5.20); LYMPHOCYTES PERCENT AUTO 22 % (21-46); MONOCYTES ABSOLUTE AUTO 0.66 K/mm3 (0.16-1.47); MONOCYTES PERCENT AUTO 11 % (4-13); Mean Corpuscular HGB 30.7 pg (26.0-34.0); Mean Corpuscular HGB Conc 32.5 g/dL (31.5-36.5); Mean Corpuscular Volume 95 fL (80-100); Mean Platelet Volume 11.4 fL (9.1-12.4); NEUTROPHILS ABSOLUTE AUTO 3.81 K/mm3 (1.96-9.15); NEUTROPHILS PERCENT AUTO 66 % (41-73); Platelet Count 51 K/mm3 (150-400); RDW Coefficient Variation 14.8 % (11.7-14.2); RDW Standard Deviation 51.5 fL (35.1-46.3); Red Blood Cell Count 3.29 M/mm3 (4.30-5.90); White Blood Cell Count 5.77 K/mm3 (4.00-11.30)
[2024-12-13 04:57] LABS: Albumin, Blood 2.7 g/dL (3.4-5.0); Albumin/Globulin Ratio 0.7 (0.8-1.8); Bilirubin, Total 0.3 mg/dL (0.1-1.0); Bun/Creatinine Ratio 21.2 (12.0-20.0); Calcium, Blood 8.1 mg/dL (8.5-10.1); Creatinine, Blood 1.32 mg/dL (0.60-1.20); Globulin, Blood 3.9 g/dL (2.2-4.0); Potassium, Blood 4.8 mmol/L (3.5-5.5); Total Protein, Blood 6.6 g/dL (6.4-8.2)
--- NOTE | 2024-12-13 05:30 | NUR ---
SHIFT SUMMARY NOC PT A/O X 3-4. FORGETFUL AT TIMES, BT PLEASANT AND COOPERATIVE WITH CARE. VSS. NO ACUTE EVENTS TO REPORT. BICARB/D5W INFUSING @ 150 ML/HR. ON TELE SINUS RHYTHM/BBB IN 'S. OSTOMY LLQ DRAINING LIQUID BROWN STOOL. PT CURRENTLY RESTING WITH BED IN LOWEST POSITION, AND CALL LIGHT WITHIN REACH.
[2024-12-13 07:11] VITALS: BP 146/71
[2024-12-13] MEDS ORDERED: Miconazole Nitrate 2% 85 GM PWD TOP SCH (11:00)
[2024-12-13 11:50] VITALS: BP 131/75
[2024-12-13 14:22] LABS: Bun/Creatinine Ratio 20.9 (12.0-20.0); Calcium, Blood 8.8 mg/dL (8.5-10.1); Creatinine, Blood 1.29 mg/dL (0.60-1.20); Potassium, Blood 4.8 mmol/L (3.5-5.5)
[2024-12-13 15:54] VITALS: BP 136/71
--- NOTE | 2024-12-13 18:05 | NUR ---
SHIFT SUMMARY PT CONT LEVEL OF CARE. PT NOTED TO BE A&O TO SELF ONLY AND MAX ASSIST WITH REPOSITIONING. PT NOTED TO REFUSE TO EAT THIS SHIFT. PT HAS BEEN OFFERED ENSURE AND EDUCATED BUT CONT TO REFUSE THIS WELL. PT HAS NOTED TO HAVE A ADAQUATE AMOUNT OF FLUID INTAKE THIS SHIFT. PT CONT WITH ESCOBAR. PT NOTED TO HAVE LIQUID STOOLS THAT HAS A ABNORMAL ODOR. RECEIVED ORDER TO CHECK FOR CDIFF AWAITING LAB RESULTS FROM [facility]. PT PLACED IN ISO FOR RULE OUT.
--- NOTE | 2024-12-13 18:10 | NUR ---
SHIFT SUMMARY PT CONT LEVEL OF CARE WITH NO ACUTE CHANGES NOTED. [facility] PLAN TO DC SUNDAY.
[2024-12-13 19:14] VITALS: BP 146/66
[2024-12-13] MEDS ORDERED: NS 250 ML IV PRN (20:45)
[2024-12-14 00:03] VITALS: BP 133/69
[2024-12-14 04:04] VITALS: BP 128/66
--- NOTE | 2024-12-14 05:06 | NUR ---
SHIFT SUMMARY NOC PT A/O X 4. PLEASANT AND COOPERATIVE WITH CARE. VSS. NO ACUTE EVENTS TO REPORT. PT HAS OSTOMY LLQ WITH SCANT OUTPUT. ON TELE SINUS RHYTHM IN 80'S. PT HAD C/O OF FEELING LIKE FOOD WAS GETTING STUCK AT BACK OF THROAT WITH MINCED/MOIST DIET AND REQUESTED DIET BE CHANGED TO PUREED, HOSPITALIST NOTIFIED OF PT CONCERNS AND REQUEST AND DIET CHANGED TO PUREED. PT HAS BEEN ACCEPTED AT [facility] AND EXPECTED TO DISCHARGE ON 12/15/24. PT CURRENTLY RESTING WITH BED IN LOWEST POSITION, AND CALL LIGHT WITHIN REACH.
[2024-12-14 06:04] LABS: BASOPHILS ABSOLUTE AUTO 0.02 K/mm3 (0.00-0.23); BASOPHILS PERCENT AUTO 0 % (0-2); EOSINOPHILS ABSOLUTE AUTO 0.06 K/mm3 (0.00-0.68); EOSINOPHILS PERCENT AUTO 1 % (0-6); Hematocrit 33.9 % (37.0-53.0); Hemoglobin 10.9 g/dL (13.5-17.5); IMMATURE GRAN ABSOLUTE AUTO 0.03 K/mm3 (0.00-0.10); IMMATURE GRAN PERCENT AUTO 0 % (0-1); LYMPHOCYTES ABSOLUTE AUTO 1.19 K/mm3 (0.84-5.20); LYMPHOCYTES PERCENT AUTO 11 % (21-46); MONOCYTES ABSOLUTE AUTO 0.87 K/mm3 (0.16-1.47); MONOCYTES PERCENT AUTO 8 % (4-13); Mean Corpuscular HGB 31.1 pg (26.0-34.0); Mean Corpuscular HGB Conc 32.2 g/dL (31.5-36.5); Mean Corpuscular Volume 97 fL (80-100); Mean Platelet Volume 11.8 fL (9.1-12.4); NEUTROPHILS ABSOLUTE AUTO 8.59 K/mm3 (1.96-9.15); NEUTROPHILS PERCENT AUTO 80 % (41-73); Platelet Count 55 K/mm3 (150-400); RDW Coefficient Variation 14.4 % (11.7-14.2); RDW Standard Deviation 50.6 fL (35.1-46.3); Red Blood Cell Count 3.51 M/mm3 (4.30-5.90); White Blood Cell Count 10.76 K/mm3 (4.00-11.30)
[2024-12-14 06:15] LABS: Bun/Creatinine Ratio 17.4 (12.0-20.0); Calcium, Blood 9.2 mg/dL (8.5-10.1); Creatinine, Blood 1.44 mg/dL (0.60-1.20); Potassium, Blood 5.6 mmol/L (3.5-5.5)
--- NOTE | 2024-12-14 06:22 | NUR ---
PT POTASSIUM 5.6 THIS AM. HOSPTTALIST NOTIFIED AND ORDER FOR LOKELMA 10 GM X 1 GIVEN.
[2024-12-14] MEDS ORDERED: Sodium Zirconium Cyclosilicate 10 GM Packet PO ONE (06:25)
[2024-12-14 07:21] VITALS: BP 133/63
[2024-12-14] MEDS ORDERED: Aspirin 81 MG TabEC PO SCH (09:00)
[2024-12-14 11:57] VITALS: BP 122/64
[2024-12-14] MEDS ORDERED: NS 1,000 ML IV SCH (13:00)
[2024-12-14 15:39] VITALS: BP 115/63
--- NOTE | 2024-12-14 19:04 | NUR ---
SHIFT SUMMARY PT CONT LEVEL OF CARE WITH NO ACUTE CHANGES NOTED. PHYSICIAN NOTIFIED OF DIET CHANGE FROM LAST NOC AND STATED NO NEED FOR SWALLOW EVAL D/T PT JUST RECEIVED ON. PT STATED ON NS @150/HR. AND DIET MODIFIED TO A LOW POTASSIUM DIET.
[2024-12-14 20:04] VITALS: BP 129/58
[2024-12-15 00:11] VITALS: BP 134/63
[2024-12-15 04:12] VITALS: BP 146/74
--- NOTE | 2024-12-15 05:37 | NUR ---
SHIFT SUMMARY NOC PT A/O X 4. PLEASANT AND COOPERATIVE WITH CARE. VSS. NO ACUTE CHANGES TO REPORT. OSTOMY LLQ SITH SOFT DE OLIVEIRA STOOLS. IVF INFUSING @ 150 ML/HR FOR POTASSIUM CONTROL. ON TELE SINUS RHYTHM/BBB/1DHB IN 80'S. PT REPORTS PUREE DIET IS MUCH EASIER TO TOLERATE THAN MNCED AND MOIST. PT EXPECTED TO DISCHARGE TODAY TO [facility]. PT CURRENTLY RESTING WITH BED IN LOWEST POSITION, AND CALL LIGHT WITHIN REACH.
[2024-12-15 05:46] LABS: BASOPHILS ABSOLUTE AUTO 0.05 K/mm3 (0.00-0.23); BASOPHILS PERCENT AUTO 1 % (0-2); EOSINOPHILS ABSOLUTE AUTO 0.13 K/mm3 (0.00-0.68); EOSINOPHILS PERCENT AUTO 1 % (0-6); Hematocrit 32.3 % (37.0-53.0); Hemoglobin 10.6 g/dL (13.5-17.5); IMMATURE GRAN ABSOLUTE AUTO 0.16 K/mm3 (0.00-0.10); IMMATURE GRAN PERCENT AUTO 2 % (0-1); LYMPHOCYTES ABSOLUTE AUTO 1.24 K/mm3 (0.84-5.20); LYMPHOCYTES PERCENT AUTO 13 % (21-46); MONOCYTES ABSOLUTE AUTO 0.85 K/mm3 (0.16-1.47); MONOCYTES PERCENT AUTO 9 % (4-13); Mean Corpuscular HGB 31.5 pg (26.0-34.0); Mean Corpuscular HGB Conc 32.8 g/dL (31.5-36.5); Mean Corpuscular Volume 96 fL (80-100); Mean Platelet Volume 12.1 fL (9.1-12.4); NEUTROPHILS ABSOLUTE AUTO 7.09 K/mm3 (1.96-9.15); NEUTROPHILS PERCENT AUTO 75 % (41-73); Platelet Count 71 K/mm3 (150-400); RDW Coefficient Variation 14.3 % (11.7-14.2); RDW Standard Deviation 50.2 fL (35.1-46.3); Red Blood Cell Count 3.37 M/mm3 (4.30-5.90); White Blood Cell Count 9.52 K/mm3 (4.00-11.30)
[2024-12-15 05:51] LABS: Bun/Creatinine Ratio 20.3 (12.0-20.0); Calcium, Blood 8.7 mg/dL (8.5-10.1); Creatinine, Blood 1.23 mg/dL (0.60-1.20); Potassium, Blood 5.5 mmol/L (3.5-5.5)
[2024-12-15 07:37] VITALS: BP 128/69
[2024-12-15 11:50] VITALS: BP 118/58
[2024-12-15 15:18] VITALS: BP 139/72
--- NOTE | 2024-12-15 17:39 | NUR ---
SHIFT SUMMARY PT CONT LEVEL OF CARE WITH NO ACUTE CHANGES NOTED. PT NOTED TO WORK WITH THERAPY THIS SHIFT AND WAS UP TO CHAIR FOR MEALS. IS ASSIST X2 WITH GAITBELT AND FWW. PT HAS BEEN ACCEPTED TO [facility] BUT IS AWAITING INSURANCE AUTH.
[2024-12-15 19:36] VITALS: BP 132/66
[2024-12-16] VITALS (7 sets, daily range): BP systolic 61–161; BP diastolic 67–103
--- NOTE | 2024-12-16 04:10 | NUR ---
A&OX4, DENIED PAIN THIS SHIFT, VSS, TELE DC'D THIS SHIFT (NSR 68), SLEPT T/O THE NIGHT, CALL LIGHT IN REACH, WILL CONT TO MONITOR UNTIL REPORT GIVEN TO ONCOMING NURSE.
[2024-12-16 06:11] LABS: Bun/Creatinine Ratio 20.5 (12.0-20.0); Calcium, Blood 8.2 mg/dL (8.5-10.1); Creatinine, Blood 1.22 mg/dL (0.60-1.20); Potassium, Blood 5.2 mmol/L (3.5-5.5)
--- NOTE | 2024-12-16 18:23 | NUR ---
NO ACUTE CHANGES THIS SHIFT. PT IS ALERT AND ORIENTED VERY PLEASANT. UP IN THE CHAIR FOR MAJORITY OF THE DAY. 1-2 PERSON ASSIST WITH FWW, GAIT BELT, AND BLE BRACES. PO INTAKE 100% THIS SHIFT. DENIES CHEST PAIN, DENIES ABD PAIN, DENIES SOB. ABLE TO MAKE NEEDS KNOWN.
--- NOTE | 2024-12-16 21:27 | NUR ---
CALL TO MD DR GURROLA NOTIFIED OF NEW O2 NEEDS, PT PLACED ON 4L TO MAINTAIN SPO2 GREATER THAN 90%, LUNG SOUNDS CRACKLES, IV FLUIDS STOPPED, MD STATED HE WILL COME TO BEDSIDE TO ASSESS PT, PT IS STABLE AT THIS TIME.
[2024-12-16] MEDS ORDERED: Furosemide 10 MG/ML 4ML Vial IV ONE (22:45)
[2024-12-16 23:06] LABS: Base Excess Venous -0.5 mmol/L; Bicarbonate Venous 24.1 mmol/L (24.0-30.0); PCO2 Venous 38.1 mmHg (38-42); pH Blood Venous 7.41 (7.34-7.37)
[2024-12-16 23:10] LABS: BASOPHILS ABSOLUTE AUTO 0.02 K/mm3 (0.00-0.23); BASOPHILS PERCENT AUTO 0 % (0-2); EOSINOPHILS ABSOLUTE AUTO 0.15 K/mm3 (0.00-0.68); EOSINOPHILS PERCENT AUTO 2 % (0-6); Hematocrit 30.6 % (37.0-53.0); Hemoglobin 9.6 g/dL (13.5-17.5); IMMATURE GRAN ABSOLUTE AUTO 0.08 K/mm3 (0.00-0.10); IMMATURE GRAN PERCENT AUTO 1 % (0-1); LYMPHOCYTES ABSOLUTE AUTO 0.95 K/mm3 (0.84-5.20); LYMPHOCYTES PERCENT AUTO 13 % (21-46); MONOCYTES ABSOLUTE AUTO 0.72 K/mm3 (0.16-1.47); MONOCYTES PERCENT AUTO 10 % (4-13); Mean Corpuscular HGB 30.3 pg (26.0-34.0); Mean Corpuscular HGB Conc 31.4 g/dL (31.5-36.5); Mean Corpuscular Volume 97 fL (80-100); NEUTROPHILS ABSOLUTE AUTO 5.15 K/mm3 (1.96-9.15); NEUTROPHILS PERCENT AUTO 73 % (41-73); Platelet Count 95 K/mm3 (150-400); RDW Coefficient Variation 13.6 % (11.7-14.2); RDW Standard Deviation 48.5 fL (35.1-46.3); Red Blood Cell Count 3.17 M/mm3 (4.30-5.90); White Blood Cell Count 7.07 K/mm3 (4.00-11.30)
[2024-12-16 23:34] LABS: Bun/Creatinine Ratio 20.8 (12.0-20.0); Calcium, Blood 8.6 mg/dL (8.5-10.1); Creatinine, Blood 1.06 mg/dL (0.60-1.20)
[2024-12-17 00:42] VITALS: BP 148/79
[2024-12-17 00:46] LABS: Adenovirus Not Detected (NOT DETECT); Bordetella pertussis Not Detected (NOT DETECT); Chlamydophila pneumoniae Not Detected (NOT DETECT); Coronavirus 229E Not Detected (NOT DETECT); Coronavirus HKU1 Not Detected (NOT DETECT); Coronavirus NL63 Not Detected (NOT DETECT); Coronavirus OC43 Not Detected (NOT DETECT); Human Metapneumovirus Not Detected (NOT DETECT); Human Rhinovirus/Enterovirus Not Detected (NOT DETECT); Influenza A/2009-H1 Not Detected (NOT DETECT); Influenza A/H1 Not Detected (NOT DETECT); Influenza A/H3 Not Detected (NOT DETECT); Influenza B Not Detected (NOT DETECT); Mycoplasma pneumoniae Not Detected (NOT DETECT); Parainfluenza Virus 1 Not Detected (NOT DETECT); Parainfluenza Virus 2 Not Detected (NOT DETECT); Parainfluenza Virus 3 Not Detected (NOT DETECT); Parainfluenza Virus 4 Not Detected (NOT DETECT); Respiratory Syncytial Virus Not Detected (NOT DETECT); SARS-Cov-2 (COVID-19), BioFire Not Detected (NOT DETECT)
[2024-12-17 04:09] VITALS: BP 134/72
--- NOTE | 2024-12-17 06:39 | NUR ---
PT WAS FOUND TO BE HYPOXIC AT 2100 VS, SPO2=76%, CRACKLES IN LUNGS, WITH EDEMA TO EXTREMITIES, PT DENIED SOB, CP, BUT C/O MOIST COUGH; PT WAS PLACED ON 4L TO MAINTAIN O2 GREATER THAN 90% MD ASSESSED PT, NEW ORDERS PLACED. NEW TELE ORDER & EKG BOTH SHOWED NSR W/RATE IN 70'S, IV FLUIDS WERE STOPPED @ 2100, 40MG IV LASIX ADMINISTERED W/GOOD OUTPUT. PT IS BACK TO RA W/LAST SPO2=93%, SLEEPING AT THIS TIME, CALL LIGHT IN REACH, WILL CONT TO MONITOR UNTIL REPORT GIVEN TO ONCOMING NURSE.
[2024-12-17 07:40] VITALS: BP 147/69
[2024-12-17 07:55] LABS: BASOPHILS ABSOLUTE AUTO 0.02 K/mm3 (0.00-0.23); BASOPHILS PERCENT AUTO 0 % (0-2); EOSINOPHILS ABSOLUTE AUTO 0.13 K/mm3 (0.00-0.68); EOSINOPHILS PERCENT AUTO 2 % (0-6); Hematocrit 31.3 % (37.0-53.0); Hemoglobin 10.1 g/dL (13.5-17.5); IMMATURE GRAN ABSOLUTE AUTO 0.07 K/mm3 (0.00-0.10); IMMATURE GRAN PERCENT AUTO 1 % (0-1); LYMPHOCYTES PERCENT AUTO 11 % (21-46); MONOCYTES PERCENT AUTO 11 % (4-13); Mean Corpuscular HGB 30.8 pg (26.0-34.0); Mean Corpuscular HGB Conc 32.3 g/dL (31.5-36.5); Mean Corpuscular Volume 95 fL (80-100); Mean Platelet Volume 11.1 fL (9.1-12.4); NEUTROPHILS ABSOLUTE AUTO 5.48 K/mm3 (1.96-9.15); NEUTROPHILS PERCENT AUTO 75 % (41-73); Platelet Count 111 K/mm3 (150-400); RDW Coefficient Variation 13.7 % (11.7-14.2); RDW Standard Deviation 47.8 fL (35.1-46.3); Red Blood Cell Count 3.28 M/mm3 (4.30-5.90)
[2024-12-17 08:25] LABS: Albumin, Blood 2.9 g/dL (3.4-5.0); Albumin/Globulin Ratio 0.6 (0.8-1.8); Bilirubin, Total 0.5 mg/dL (0.1-1.0); Bun/Creatinine Ratio 19.7 (12.0-20.0); Calcium, Blood 8.9 mg/dL (8.5-10.1); Creatinine, Blood 1.17 mg/dL (0.60-1.20); Globulin, Blood 4.7 g/dL (2.2-4.0); Potassium, Blood 4.6 mmol/L (3.5-5.5); Total Protein, Blood 7.6 g/dL (6.4-8.2)
[2024-12-17] MEDS ORDERED: Furosemide 10 MG / ML 2ML Vial IV ONE (09:30)
[2024-12-17 15:55] VITALS: BP 133/58
--- NOTE | 2024-12-17 17:02 | NUR ---
SUMMARY IV LASIX GIVEN THIS SHIFT, PT HAS HAD MULTI INCONT EPISODES OF URINE, CURRENTLY ON 1.5L NC/RA AT BASELINE, PT DENIES SOB, DENIES DISCOMFORT, OSTOMY APPLIANCE CHANGED AND SKIN THROUGHLY CLEANSED. PT IS UP IN CHAIR FOR SEVERAL HOURS TODAY. REPORTS FATIGUE. DENIES PAIN. CURRENTLY SATTING AT 93%
[2024-12-17 19:36] VITALS: BP 134/61
[2024-12-18 03:54] VITALS: BP 120/77
[2024-12-18 05:42] LABS: Bun/Creatinine Ratio 21.8 (12.0-20.0); Calcium, Blood 8.7 mg/dL (8.5-10.1); Creatinine, Blood 1.24 mg/dL (0.60-1.20); Potassium, Blood 4.5 mmol/L (3.5-5.5)
--- NOTE | 2024-12-18 06:46 | NUR ---
SHIFT SUMMARY AT START OF SHIFT, PT SITTING IN CHAIR. PT UP AND AMBULATED TO BED. PT WEAK ON HIS FEET STILL. PT SLEEPING THROUGH NIGHT, WAKING FOR MED PASSES AND VITALS. HE HAS BEEN PLEASANT AND COOPERATIVE WITH HIS CARE
[2024-12-18 07:46] VITALS: BP 114/91
[2024-12-18] MEDS ORDERED: Aspirin 81 MG Chew PO SCH ×2 (09:00)
--- NOTE | 2024-12-18 14:56 | NUR ---
pt discharged to [facility], transported by wheelchair. report given to pepito at facility.
== END 2024-12-18 14:52 | DRG 689 ==
LOC: ER 17:07 → ICUE 17:08 → ERHOLD 22:35 → ICUE 22:35 → ER 22:35 → ICUE 22:35 → ERHOLD 12-12 01:00 → ICUE 12-12 09:57 → MEDS 12-12 15:51 → ICUE 12-12 15:51 → MEDS 12-12 18:06 → ENPENDDIS 12-18 12:04 → MEDS 12-18 14:52
PROVIDERS: Internal Medicine; Student in an Organized Health Care Education/Training Program; ADMIT Internal Medicine
DX: N39.0 Urinary tract infection, site not specified (principal); G93.41 Metabolic encephalopathy; J96.01 Acute respiratory failure with hypoxia; N17.9 Acute kidney failure, unspecified; E87.3 Alkalosis; E87.5 Hyperkalemia; T68.XXXA Hypothermia, initial encounter; I10 Essential (primary) hypertension; E11.9 Type 2 diabetes mellitus without complications; Z86.79 Personal history of other diseases of the circulatory system; Z85.038 Personal history of other malignant neoplasm of large intestine; Z98.890 Other specified postprocedural states; Z93.1 Gastrostomy status; Z79.899 Other long term (current) drug therapy; Z79.84 Long term (current) use of oral hypoglycemic drugs; Z23 Encounter for immunization
CPT/HCPCS: 0202U; 0241U; 36415; 70450; 70551; 71045; 80048; 80053; 80069; 81001; 82803; 82947; 83605; 83615; 83880; 84145; 84484; 85025; 85379; 87040; 87086; 90656; 92526; 92610; 93005; 93010; 94760; 94762; 96365; 96372; 96375; 96376; 97110; 97162; 97166; 97530; 97535; 99285-25; A9270; G0378; J0612; J0696; J1650; J1815; J1940; J7030; J7050; J7070; J7799

== ENCOUNTER 2025-03-05 09:47 | Inpatient (IN) | payer OTHER ==
[~2025-03-05] VITALS: Ht 175.3 cm; Wt 88.7 kg
[~2025-03-05 09:47] MED LIST changes: +Ketoconazole120 ML TOP
[2025-03-05] MEDS ORDERED: Morphine Sulfate 4 MG/1 ML Injection IV ONE (10:05)
[2025-03-05 10:54] LABS: BASOPHILS ABSOLUTE AUTO 0.06 K/mm3 (0.00-0.23); BASOPHILS PERCENT AUTO 0 % (0-2); EOSINOPHILS ABSOLUTE AUTO 0.13 K/mm3 (0.00-0.68); EOSINOPHILS PERCENT AUTO 1 % (0-6); Hematocrit 34.4 % (37.0-53.0); Hemoglobin 10.9 g/dL (13.5-17.5); IMMATURE GRAN ABSOLUTE AUTO 0.12 K/mm3 (0.00-0.10); IMMATURE GRAN PERCENT AUTO 1 % (0-1); LYMPHOCYTES ABSOLUTE AUTO 0.82 K/mm3 (0.84-5.20); LYMPHOCYTES PERCENT AUTO 5 % (21-46); MONOCYTES PERCENT AUTO 3 % (4-13); Mean Corpuscular HGB 29.9 pg (26.0-34.0); Mean Corpuscular HGB Conc 31.7 g/dL (31.5-36.5); Mean Corpuscular Volume 94 fL (80-100); Mean Platelet Volume 9.3 fL (9.1-12.4); NEUTROPHILS ABSOLUTE AUTO 14.24 K/mm3 (1.96-9.15); NEUTROPHILS PERCENT AUTO 90 % (41-73); Platelet Count 248 K/mm3 (150-400); RDW Coefficient Variation 14.5 % (11.7-14.2); RDW Standard Deviation 49.8 fL (35.1-46.3); Red Blood Cell Count 3.65 M/mm3 (4.30-5.90); White Blood Cell Count 15.87 K/mm3 (4.00-11.30)
[2025-03-05 11:33] LABS: Bun/Creatinine Ratio 30.4 (12.0-20.0); Calcium, Blood 8.9 mg/dL (8.5-10.1); Creatinine, Blood 0.92 mg/dL (0.60-1.20); Potassium, Blood 4.8 mmol/L (3.5-5.5)
[2025-03-05] MEDS ORDERED: Doxycycline Hyclate 100 MG in Dextrose 5% 250 ML IV ONE (12:05)
[2025-03-05] MEDS ORDERED: CefTRIAXone Sodium 1,000 MG in NS 100 ML IV ONE (12:05)
[2025-03-05] MEDS ORDERED: FentaNYL Citrate 50 MCG/ML 2 ML Injection IV PRN (13:45)
[2025-03-05] MEDS ORDERED: OxyCODONE 5 mg/Acetamin 325 mg TABLET PO PRN (13:45)
[2025-03-05] MEDS ORDERED: Polyethylene Glycol 3350 17 gm PO SCH (14:00)
[2025-03-05] MEDS ORDERED: NS 1,000 ML IV SCH (15:00)
[2025-03-05 15:45] VITALS: BP 131/57
[2025-03-05] MEDS ORDERED: Doxycycline Hyclate 100 MG TAB PO SCH ×2 (16:52→21:00)
--- NOTE | 2025-03-05 17:23 | NUR ---
SUMMARY NO ACUTE CHANGES SINCE ARRIVING TO 214 FROM ED. CALL LIGHT IN REACH. PT SIPPING WATER. IV FLUIDS INFUSING PER ORDERS. BED ALARM ON FOR SAFETY. AWAITING VOID FOR SAMPLE. URINAL BEDSIDE.
[2025-03-05] MEDS ORDERED: Insulin Human Lispro 100 Units/ML 3ML Syringe SC SCH ×2 (18:10→21:00)
[2025-03-05] MEDS ORDERED: Docusate Sodium 100 MG Cap PO SCH (21:00)
[2025-03-05 22:45] VITALS: BP 116/85
[2025-03-06] VITALS (18 sets, daily range): BP systolic 91–146; BP diastolic 53–89
[2025-03-06 04:45] LABS: BASOPHILS ABSOLUTE AUTO 0.04 K/mm3 (0.00-0.23); BASOPHILS PERCENT AUTO 0 % (0-2); EOSINOPHILS ABSOLUTE AUTO 0.26 K/mm3 (0.00-0.68); EOSINOPHILS PERCENT AUTO 2 % (0-6); Hematocrit 32.8 % (37.0-53.0); Hemoglobin 10.3 g/dL (13.5-17.5); IMMATURE GRAN ABSOLUTE AUTO 0.11 K/mm3 (0.00-0.10); IMMATURE GRAN PERCENT AUTO 1 % (0-1); LYMPHOCYTES ABSOLUTE AUTO 1.22 K/mm3 (0.84-5.20); LYMPHOCYTES PERCENT AUTO 10 % (21-46); MONOCYTES ABSOLUTE AUTO 0.41 K/mm3 (0.16-1.47); MONOCYTES PERCENT AUTO 3 % (4-13); Mean Corpuscular HGB 29.9 pg (26.0-34.0); Mean Corpuscular HGB Conc 31.4 g/dL (31.5-36.5); Mean Corpuscular Volume 95 fL (80-100); Mean Platelet Volume 9.5 fL (9.1-12.4); NEUTROPHILS ABSOLUTE AUTO 9.91 K/mm3 (1.96-9.15); NEUTROPHILS PERCENT AUTO 83 % (41-73); Platelet Count 221 K/mm3 (150-400); RDW Coefficient Variation 14.9 % (11.7-14.2); RDW Standard Deviation 51.8 fL (35.1-46.3); Red Blood Cell Count 3.45 M/mm3 (4.30-5.90); White Blood Cell Count 11.95 K/mm3 (4.00-11.30)
[2025-03-06 05:05] LABS: Bun/Creatinine Ratio 27.4 (12.0-20.0); Calcium, Blood 8.3 mg/dL (8.5-10.1); Creatinine, Blood 0.95 mg/dL (0.60-1.20); Potassium, Blood 4.4 mmol/L (3.5-5.5)
--- NOTE | 2025-03-06 07:56 | NUR ---
SUMMARY PT WITH UNEVENTFUL NIGHT,REPOSITIONS WITH ASSIST OF 2 PERSONS.PT TOLERATES WELL WITH CONSIDERATION FOR FX.PT DOES HAVE DESATS TO MID 80 WITH FULL LINEN CHANGE AND REPEATED SIDE TO SIDE MOVEMENT..PT REMAINS NPO.PENDING POSSIBLE OR TODAY.
--- NOTE | 2025-03-06 08:10 | NUR ---
SUMMARY PT REMAINS NPO PENDING BEING SEEN BY SURGERY.WBC TRENDING DOWN.PT VOIDING, BUT HAS NOT USED URINAL.ENCOURAGED USE OF URINAL FOR ACCURATE I/O.
[2025-03-06] MEDS ORDERED: NS 250 ML IV PRN (08:50)
[2025-03-06] MEDS ORDERED: CefTRIAXone Sodium 1,000 MG in NS 100 ML IV SCH (09:00)
--- NOTE | 2025-03-06 10:01 | NUR ---
Pt. is awake and welcomes my visit. Pt is pleasant. Facilitate a life review and listen with empathy and interest. Pt. dislpayed evidence of hope. Prayed with the Pt. and provided him a bible at his request. Pt. verbalized geratitude for the spiritual care visit and welcomed this metal casting trades worker to return.
[2025-03-06 11:56] LABS: Source, Urine Clean Catch
[2025-03-06 12:01] LABS: Appearance, Urine Clear (Clear); Bilirubin, Urine Neg (Neg); Blood, Urine 3+ (Neg); Color, Urine Yellow (P-Yellow); Glucose Qualitative, Urine Neg (Neg); Ketones, Urine Neg (Neg); Leukocyte Esterase, Urine 1+ (Neg); Nitrite, Urine Neg (Neg); Protein, Urine 2+ (Neg); Urobilinogen, Urine NORM (Normal)
[2025-03-06 12:20] LABS: Bacteria Many /hpf; Granular Casts 0-2 /lpf (0); Mucus Light (0-Heavy); Squamous Epithelial Cells Not Seen /hpf (Few)
[2025-03-06] MEDS ORDERED: propofoL 100 ML IV ONE (12:28)
[2025-03-06] MEDS ORDERED: propofoL 20 ML IV ONE ×2 (12:30→14:26)
[2025-03-06] MEDS ORDERED: FentaNYL Citrate 50 MCG/ML 2 ML Injection ONE (12:31)
[2025-03-06] MEDS ORDERED: Bupivacaine 0.5% W/EPI 1:200000 SDV 30 ML Vial ONE (12:49)
--- NOTE | 2025-03-06 12:53 | NUR ---
PT TAKEN TO SURGERY AND TRANSPORTED BY DAY SURGERY AT APPROX 1240.
--- NOTE | 2025-03-06 12:59 | NUR ---
REPORT RECEIVED FROM VALERY COELHO. ASSUMED CARE AT ABOUT 1210. UPON ASSESSMENT WITH PT ROUNDING PT SLEEPING AND AWAKENS TO VOICE, ANSWERS QUESTIONS. OSTOMY BAG CHANGED. PT DENIES PAIN AT THIS TIME. PT REPOSITIONED TO R SIDE WITH BIJU MCNAIR AND CALL LIGHT IN REACH.
[2025-03-06] MEDS ORDERED: CeFAZolin Sodium 2,000 MG in NS 100 ML IV SCH (13:20)
[2025-03-06] MEDS ORDERED: Lactated Ringer's 1,000 ML IV SCH ×2 (13:20→14:55)
[2025-03-06] MEDS ORDERED: Tranexamic Acid 100 ML IV SCH (13:20)
[2025-03-06] MEDS ORDERED: CeFAZolin Sodium 1000 mg Vial ONE (13:49)
[2025-03-06] MEDS ORDERED: Dexamethasone Sod Phos 10 MG/ML 1ML VIAL ONE (13:49)
[2025-03-06] MEDS ORDERED: Phenylephrine HCl 100 MCG/ML-NS 10MLSYR (1MG/10ML) ONE (14:09)
[2025-03-06] MEDS ORDERED: HYDROmorphone HCl/Pf 1MG SYR IV PRN (14:55)
[2025-03-06] MEDS ORDERED: Lidocaine HCl 1% 5 ML SYR INJ ONE ×2 (14:55)
[2025-03-06] MEDS ORDERED: Ondansetron HCl 2 MG / ML 2ML Vial IV PRN (15:00)
[2025-03-06] MEDS ORDERED: FentaNYL Citrate 50 MCG/ML 2 ML Injection IV PRN ×2 (15:00)
[2025-03-06] MEDS ORDERED: Albuterol 2.5 MG/3 ML VIAL INH PRN (15:00)
--- NOTE | 2025-03-06 17:11 | NUR ---
APPLIED TELE TO PT. VERIFIED WITH SECURITY SUPPORT ANALYST. SR IN THE 80S WITH FREQUENT PACS.
--- NOTE | 2025-03-06 17:48 | NUR ---
POST OP: STUDENT RN RECEIVED REPORT FROM CHEMISTRY MANAGER. PT TO UNIT AT ABOUT 1535. UPON ASSESSMENT PT IS DROWSY AND AWAKENS TO VOICE, FOLLOWS COMMANDS. PT SP02 83% ON 2L NC. NO RESP DISTRESS NOTED, PT ASKED TO TAKE DEEP BREATHS AND COUGH, PT ABLE TO DO SO, SP02 STILL BELOW 90%. INCREASED TO 5L NC AND SP02 CONTINUED TO BE BELOW 90%. PT PLACE ON NON REBREATHER AT 10L AND TOP SCREW ARIKA CALLED TO ROOM. SP02 THEN CAME UP TO 90-96%. PT USED I.S. AND ABLE TO WEAN O2 DOWN TO 5L, NC. DURING THIS TIME PT HR FLUCUATED BETWEEN 30-80 BPM ON OXIMETRY. UPON ASCULATION , HEART RATE SOUNDS IRREGULAR, PT DENIES CP. DR. VILLALBA NOTIFIED OF THE ABOVE. CONT BI OX APPLIED AND TELE BOX.
--- NOTE | 2025-03-06 17:49 | NUR ---
SHIFT SUMMARY PT UNDERWENT A PERCUTANEOUS PINNING REPAIR TODAY OF THE R HIP. AFTER POST OP RECOVERY PT HAS BEEN DROSWY BUT WAKES UP TP VERBAL STIMULI. PT DENIES ANY PAIN, N/V, OR SOB. TELE AND CONTINUOUS BIOX HAS BEEN APPLIED. TELE SHOWS SR IN THE 80S WITH FREQUENT PACS. O2 IS ABOVE 95% ON 3L NC. POST OP VITAL SIGNS ARE STABLE. AWAITING POST OP VOID. ONE SURGICAL SITE ON R HIP CLEAN AND INTACT. CALL LIGHT WITHIN REACH.
[2025-03-06] MEDS ORDERED: Atorvastatin 40 MG Tab PO SCH (21:00)
--- NOTE | 2025-03-06 23:20 | NUR ---
DESAT PT CONT PULSE OX ALARMING @86% ON 5L O2, MYSELF & NURSES EDUCATOR REPOSITIONED PT & REASSESSED CONT PULSE OX WAS 84% W/GOOD PLETH. INFORMED FINISHING INSPECTOR MEGAN WHOM CALLED RT TO RM. RT TOLD DAVID TO PLACE NON-REBREATHER, ASSESSED PT & RECOMMENDED CPAP. DAVID Paul CALLED COOK P & HE ORDERED CPAP.
[2025-03-07 03:55] LABS: MYOGLOBIN SERUM 154 ng/mL (<=72)
[2025-03-07 04:26] VITALS: BP 110/74
[2025-03-07 05:17] LABS: Hematocrit 28.3 % (37.0-53.0); Hemoglobin 8.6 g/dL (13.5-17.5); Mean Corpuscular HGB 29.7 pg (26.0-34.0); Mean Corpuscular HGB Conc 30.4 g/dL (31.5-36.5); Mean Corpuscular Volume 98 fL (80-100); Mean Platelet Volume 9.9 fL (9.1-12.4); Platelet Count 197 K/mm3 (150-400); RDW Coefficient Variation 15.2 % (11.7-14.2); RDW Standard Deviation 54.9 fL (35.1-46.3); White Blood Cell Count 12.52 K/mm3 (4.00-11.30)
[2025-03-07 05:39] LABS: Bun/Creatinine Ratio 28.2 (12.0-20.0); Calcium, Blood 8.1 mg/dL (8.5-10.1); Creatinine, Blood 1.31 mg/dL (0.60-1.20); Potassium, Blood 4.3 mmol/L (3.5-5.5)
--- NOTE | 2025-03-07 05:58 | NUR ---
SHIFT SUMMARY OPENS EYES TO VERBAL STIMULI. ABLE TO FOLLOW DIRECTIONS & ANSWER QUESTIONS APPROPRIATE. POD 1-R HIP PINNING. ABLE TO WIGGLE R FOOT, DENIES MUCH PAIN TO R HIP. MEDICATED 1x PER EMAR ORDERS. STATES PAIN IS MUCH BETTER & HE ONLY FEELS "STIFF" W/MOVEMENT. +2 EDEMA TO BILAT PEDAL. WEAK PEDAL PULSES, CAP REFILL @4-5 SEC. CHANGED AQUACEL TO R HIP FOR MOD AMOUNT SEROSANGUINOUS DRAINAGE. TELE NSR W/PAC HR 75. HAS VOIDED DARK ORANGE URINE 2x W/URINAL ASSISTANCE. NO OUTPUT FROM OSTOMY THIS SHIFT. CURRENTLY ON BIPAP W/10L O2 BLEED IN, ASSISTED PT W/SIP OF WATER & HE DESAT TO 79% ON RA W/O BIPAP. CALL LIGHT IN REACH.
[2025-03-07 07:28] VITALS: BP 103/52
[2025-03-07] MEDS ORDERED: Aspirin 81 MG Chew PO SCH (09:00)
[2025-03-07] MEDS ORDERED: Lisinopril 20 MG Tab PO SCH (09:00)
[2025-03-07] MEDS ORDERED: AmLODIPine Besylate 5 MG Tab PO SCH (09:00)
[2025-03-07 15:29] VITALS: BP 122/73
--- NOTE | 2025-03-07 16:50 | NUR ---
END OF SHIFT PT RESTING. PRESENTLY STABLE ON 5LNC FOR SPO2 93%. IV PRESENTLY TO SL. PT ON A Q2HR TURN SCHEDULE. DENIES PAIN. WILL CONTINUE TO MONITOR.
[2025-03-07 18:31] VITALS: BP 130/71
[2025-03-08] VITALS (8 sets, daily range): BP systolic 97–129; BP diastolic 51–80
--- NOTE | 2025-03-08 05:09 | NUR ---
SHIFT SUMMARY AOX4. VSS. SPO2>95% ON 5L, TITRATED O2 TO 4L & SPO2 MAINTAINING >90%. OCC PRODUCTIVE COUGH. BS COARSE W/EXP WHEEZES IN BASES. DENIES DYSPNEA. TELE NSR w/BBB & PVC. POD 2-R HIP PINNING, AQUACEL DRESSING C/D/I-NO SHADOWING NOTED. PT REPORTS 10/10 PAIN W/MOVEMENT TO R HIP. REPOSITIONED VIA 2P. ASSISTED W/URINAL. EMPTIED 300ML LIQUID & SOFT BROWN BM OUT OSTOMY. +1 EDEMA TO BLE. CALL LIGHT IN REACH & PT ABLE TO MAKE NEEDS KNOWN.
--- NOTE | 2025-03-08 07:52 | NUR ---
PT UP TO BEDSIDE TO DANGLE. ABLE TO STAND WITH 2 ASSIST AND WALKER BUT UNABLE TO TRANSFER SUCCESSFULLY TO CHAIR. PT AGREES TO SIT AT BEDSIDE FOR BREAKFAST. WILL CONTINUE TO MONITOR.
--- NOTE | 2025-03-08 08:56 | NUR ---
ELEVATED HR PT WITH HR ELEVATED 130-150 RANGE. SINUS TACH WITH PAC. PT DENIES CP. BACK TO BED. NOTIFIED.
--- NOTE | 2025-03-08 09:07 | NUR ---
ELEVATED HR MEDICATED FOR PAIN PER DR VILLAR. NO OTHER NEW ORDERS. BP 118 SYSTOLIC. WILL CONTINUE TO MONITOR.
--- NOTE | 2025-03-08 09:17 | NUR ---
HR NOW IN MID 90 BPM RANGE. SINUS RHYTHM PER GLENN/ COLLEGE SPECIALIST. WILL CONTINUE TO MONITOR.
--- NOTE | 2025-03-08 10:15 | NUR ---
PT IN AND OUT OF AFLUTTER PER TECHNICAL ASSOCIATE. DR VILLAR IN WITH PT. LAB IN TO DRAW PT.
[2025-03-08 10:29] LABS: Hemoglobin 9.2 g/dL (13.5-17.5); Mean Corpuscular HGB 29.4 pg (26.0-34.0); Mean Corpuscular HGB Conc 30.7 g/dL (31.5-36.5); Mean Corpuscular Volume 96 fL (80-100); Mean Platelet Volume 9.9 fL (9.1-12.4); Platelet Count 197 K/mm3 (150-400); RDW Coefficient Variation 15.1 % (11.7-14.2); RDW Standard Deviation 52.8 fL (35.1-46.3); Red Blood Cell Count 3.13 M/mm3 (4.30-5.90)
[2025-03-08 11:06] LABS: Bun/Creatinine Ratio 34.9 (12.0-20.0); Calcium, Blood 8.5 mg/dL (8.5-10.1); Creatinine, Blood 1.29 mg/dL (0.60-1.20); Free Thyroxine 1.54 ng/dL (0.70-1.60); Potassium, Blood 4.4 mmol/L (3.5-5.5); Thyroid Stimulating Hormone 1.79 uIU/mL (0.360-4.800); Triiodothyronine, Free 1.21 pg/mL (2.18-3.98)
[2025-03-08] MEDS ORDERED: NS 1,000 ML IV SCH (11:30)
[2025-03-08] MEDS ORDERED: Metoprolol Succinate 25 MG TABCR PO SCH (12:00)
[2025-03-08] MEDS ORDERED: Enoxaparin 40 MG/0.4 ML SYR SC SCH (12:00)
--- NOTE | 2025-03-08 17:39 | NUR ---
PT RESTING. IV INFUSING R ARM. EATING DINNER. PRESENTLY IN A SINUS RHYTHM AT 75 BPM. VOIDING WITH MINIMAL ASSISTANCE. DENIES PAIN. WILL CONTINUE TO MONITOR.
[2025-03-08] MEDS ORDERED: Sennosides 8.6 MG Tab PO SCH (21:00)
[2025-03-08 22:04] LABS: Base Excess Venous -1.6 mmol/L; Bicarbonate Venous 22.9 mmol/L (24.0-30.0); PCO2 Venous 41.6 mmHg (38-42); pH Blood Venous 7.37 (7.34-7.37)
--- NOTE | 2025-03-08 22:11 | NUR ---
GOLF CLUB ASSEMBLER PATIENT VOMIITED PRIOR TO NEW IV PLACEMENT. HEART RATE CHANGE AND SATS DROPPED TO LOW 80S, GOLF CLUB ASSEMBLER WAS CALLED. SEE GOLF CLUB ASSEMBLER INTERVENTION DOCUMENT. PATIENT IS TRANSFERRED TO [facility], BED SIDE REPORT GIVEN TO ZEKE RASMUSSEN TO ASSUME CARE.
[2025-03-08 22:13] LABS: BASOPHILS ABSOLUTE AUTO 0.03 K/mm3 (0.00-0.23); BASOPHILS PERCENT AUTO 0 % (0-2); EOSINOPHILS ABSOLUTE AUTO 0.36 K/mm3 (0.00-0.68); EOSINOPHILS PERCENT AUTO 3 % (0-6); Hematocrit 30.3 % (37.0-53.0); Hemoglobin 9.4 g/dL (13.5-17.5); IMMATURE GRAN ABSOLUTE AUTO 0.14 K/mm3 (0.00-0.10); IMMATURE GRAN PERCENT AUTO 1 % (0-1); LYMPHOCYTES ABSOLUTE AUTO 1.05 K/mm3 (0.84-5.20); LYMPHOCYTES PERCENT AUTO 8 % (21-46); MONOCYTES ABSOLUTE AUTO 0.85 K/mm3 (0.16-1.47); MONOCYTES PERCENT AUTO 6 % (4-13); Mean Corpuscular Volume 97 fL (80-100); Mean Platelet Volume 9.9 fL (9.1-12.4); NEUTROPHILS ABSOLUTE AUTO 11.61 K/mm3 (1.96-9.15); NEUTROPHILS PERCENT AUTO 83 % (41-73); Platelet Count 222 K/mm3 (150-400); RDW Coefficient Variation 15.1 % (11.7-14.2); Red Blood Cell Count 3.13 M/mm3 (4.30-5.90); White Blood Cell Count 14.04 K/mm3 (4.00-11.30)
[2025-03-08 22:29] LABS: Albumin, Blood 2.4 g/dL (3.4-5.0); Albumin/Globulin Ratio 0.5 (0.8-1.8); Bilirubin, Total 0.4 mg/dL (0.1-1.0); Bun/Creatinine Ratio 37.7 (12.0-20.0); Calcium, Blood 8.6 mg/dL (8.5-10.1); Creatinine, Blood 1.3 mg/dL (0.60-1.20); Globulin, Blood 4.8 g/dL (2.2-4.0); Magnesium, Blood 1.9 mg/dL (1.6-2.4); Potassium, Blood 4.7 mmol/L (3.5-5.5); Total Protein, Blood 7.2 g/dL (6.4-8.2)
[2025-03-08] MEDS ORDERED: Ondansetron HCl 2 MG / ML 2ML Vial IV PRN (22:30)
[2025-03-08] MEDS ORDERED: Metoprolol Tartrate 1 MG/ML 5 ML VIAL IV PRN (22:30)
[2025-03-08] MEDS ORDERED: Metoprolol Tartrate 1 MG/ML 5 ML VIAL IV ONE (22:30)
--- NOTE | 2025-03-08 22:47 | NUR ---
PT ARRIVED TO [facility] FROM [facility] VIA BED,ESCORTED BY PRIMARY NURSE AND PCU CHARGE NURSE.PT ON 12L OF OXYGEN VIA MASK,DENIES SOB.OXYGEN SATURATION 97%.OXYGEN FLOWRATE TITRATED DOWN TO 10L,OXYGEN SATURATION >93%.HEART RHYTHM SWITCHING BACK AND FORTH FROM AFIB WITH RVR AT 120-140'S TO SR WITH HR 80'S-90'S.PT DENIES CHEST PAIN,DENIES CHEST PRESSURE,DENIES GENERALIZED PAIN.EKG,CHEST XRAY AND LABS OBTAINED ORDERED.ZOFRAN 4MG IV GIVEN.NS AT 100ML/HR STARTED.PT DENIES FURTHER NEEDS.CALL LIGHT AND PT'S ITEMS WITHIN REACH.CONTINUING PLAN OF CARE ORDERED.
[2025-03-08] MEDS ORDERED: Ampicillin Sod/Sulbactam Sod 3 GM in NS 100 ML IV SCH (22:52)
[2025-03-08] MEDS ORDERED: Mag Sulfate 1 GM/D5% 100ML 100 ML IV STA (23:22)
[2025-03-09] VITALS (10 sets, daily range): BP systolic 111–128; BP diastolic 55–77
[2025-03-09 04:56] LABS: Hematocrit 29.8 % (37.0-53.0); Mean Corpuscular HGB 29.7 pg (26.0-34.0); Mean Corpuscular HGB Conc 30.2 g/dL (31.5-36.5); Mean Corpuscular Volume 98 fL (80-100); Platelet Count 232 K/mm3 (150-400); RDW Standard Deviation 54.4 fL (35.1-46.3); Red Blood Cell Count 3.03 M/mm3 (4.30-5.90); White Blood Cell Count 13.32 K/mm3 (4.00-11.30)
[2025-03-09 05:14] LABS: Bun/Creatinine Ratio 37.9 (12.0-20.0); Calcium, Blood 8.3 mg/dL (8.5-10.1); Creatinine, Blood 1.24 mg/dL (0.60-1.20); Magnesium, Blood 2.3 mg/dL (1.6-2.4); Potassium, Blood 4.8 mmol/L (3.5-5.5)
--- NOTE | 2025-03-09 06:08 | NUR ---
PT'S OXYGEN SATURATION RATE TITRATED DOWN TO 4L VIA OXYMASK.PT'S OXYGEN SATURATION >92%.PT DENIES SOB.SINUS RHYTHM ON TELEMETRY .PATIENT MONITORED DURING THE SHIFT,NO IMMEDIATE CONCERNS NOTED.CALL LIGHT AND PT'S ITEMS WITHIN REACH.REMAINS NPO SECONDARY TO ASPIRATION.DENIES PAIN,DENIES NEEDS AT THIS TIME.
--- NOTE | 2025-03-09 18:09 | NUR ---
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 EDEMA TO LEFT ARM THOUGHT TO BE FROM INFILATED IV THAT WAS REMOVED THIS SHIFT, 18 G RAC IV REMAINS, HX A.FIB RVR, NSR WITH HR IN 70'S THIS SHIFT, ECHO ORDERED FOR 03/09. ON 4L O2 VIA HFNC, DESATS WIHTOUT O2, LLL PNU, IS AT BEDSIDE, HX ASPIRATION, REEVALUATED BY SPEECH THERAPY, THICKENED LIQUIDS ORDERED WITH MINCED AND MOIST DIET AND FEEDING ASSISTANCE, NO STRAWS. R HIP SURGICAL REPAIR POD2, AQUACEL TO LATERAL ASPECT OF R HIP, WORKING WITH PT/OT SERVICES. USES URINAL AT BEDSIDE WITH ASSISTANCE, LUQ OSTOMY, PT REPORTS CHRONIC REDNESS AND FLAKING OF SKIN SURROUNDING SITE, HX COLON CANCER.
[2025-03-09] MEDS ORDERED: Polyethylene Glycol 3350 17 gm PO SCH (19:00)
[2025-03-09] MEDS ORDERED: Azithromycin 500 MG in NS 250 ML IV SCH (19:00)
[2025-03-10 04:35] VITALS: BP 130/71
[2025-03-10 05:26] LABS: BASOPHILS ABSOLUTE AUTO 0.03 K/mm3 (0.00-0.23); BASOPHILS PERCENT AUTO 0 % (0-2); EOSINOPHILS ABSOLUTE AUTO 0.31 K/mm3 (0.00-0.68); EOSINOPHILS PERCENT AUTO 3 % (0-6); Hemoglobin 8.7 g/dL (13.5-17.5); IMMATURE GRAN ABSOLUTE AUTO 0.11 K/mm3 (0.00-0.10); IMMATURE GRAN PERCENT AUTO 1 % (0-1); LYMPHOCYTES ABSOLUTE AUTO 1.02 K/mm3 (0.84-5.20); LYMPHOCYTES PERCENT AUTO 8 % (21-46); MONOCYTES ABSOLUTE AUTO 0.96 K/mm3 (0.16-1.47); MONOCYTES PERCENT AUTO 8 % (4-13); Mean Corpuscular HGB 29.7 pg (26.0-34.0); Mean Corpuscular Volume 99 fL (80-100); Mean Platelet Volume 10.2 fL (9.1-12.4); NEUTROPHILS ABSOLUTE AUTO 9.88 K/mm3 (1.96-9.15); NEUTROPHILS PERCENT AUTO 80 % (41-73); Platelet Count 241 K/mm3 (150-400); RDW Standard Deviation 54.6 fL (35.1-46.3); Red Blood Cell Count 2.93 M/mm3 (4.30-5.90); White Blood Cell Count 12.31 K/mm3 (4.00-11.30)
[2025-03-10 05:39] LABS: Bun/Creatinine Ratio 38.5 (12.0-20.0); Calcium, Blood 8.4 mg/dL (8.5-10.1); Creatinine, Blood 1.17 mg/dL (0.60-1.20); Potassium, Blood 4.4 mmol/L (3.5-5.5)
--- NOTE | 2025-03-10 07:30 | NUR ---
PT MONITORED DURING THE SHIFT.NO IMMEDIATE CONCERNS NOTED.PT DENIES PAIN/DISCOMFOT,DENIES NEEDS.REPORT GIVEN TO DAYSHIFT NURSE FOR CONTINUITY OF CARE.CALL LIGHT AND PT'S ITEMS WITHIN REACH,BED IN THE LOWEST POSITION.
[2025-03-10 07:32] VITALS: BP 122/99
[2025-03-10 11:15] VITALS: BP 103/59
[2025-03-10] MEDS ORDERED: Dextrose 5% 1,000 ML IV SCH (11:35)
[2025-03-10 15:32] VITALS: BP 120/70
--- NOTE | 2025-03-10 15:54 | NUR ---
PALLIATIVE CARE VISIT: CALLED BY SENIOR LIBRARIAN REGARDING PT HAVING RAPID RESPONSE WHILE ON SURGICAL FLOOR, NOW REQUIRING 5 LITER O2 VIA NC, PT REFUSING PEG TUBE, WANTS TO EAT AND DRINK WHATEVER HE WANTS TO. MET WITH PT IN HIS ROOM. PT IS AWAKE AND ABLE TO HAVE MEANINGFUL DISCUSSION. HE ANSWERS QUESTIONS APPROPRIATELY. PT IS ON 5 LPM VIA NC, SLIGHTLY DYSPNEIC WITH COARSE WET OCCASIONAL COUGH. DISCUSSED WITH PT THE RISKS ASSOCIATED WITH EATING AND DRINKING, CHOKING, ASPIRATION, DIFFICULTY BREATHING THAT COULD LEAD TO POTENTIAL INTUBATION AND TUBE FEEDS. PT STATED HE DID NOT WANT TUBE FEEDS EVER AGAIN. HE STATES HE NEVER WANTS A PEG TUBE. PT EDUCATED ON WHAT FULL CODE VS DNR CODE STATUS IS. PT STATES HE WANTS TO BE DNR AT THIS TIME. PT EDUCATED ON COMFORT MEASURES VS FULL TREATMENT. PT INFORMED WITH COMFORT MEASURES HIS BLOOD PRESSURE MEDICATIONS, INSULIN, AND ANTIBIOTICS WOULD BE STOPPED. INFORMED PT WITH COMFORT MEASURES SYMPTOMS OF PAIN, SOB, NAUSEA, CONSTIPATION WOULD BE TREATED WITH MEDICATONS TO KEEP HIM COMFORTABLE LIKE PAIN AND ANXIETY MEDICATIONS. PT IS AGREEABLE TO COMFORT CARE MEASURES. PT STATES HE IS OK WITH STOPPING BP MEDS, ABX, AND INSULIN. PT WANTS TO BE ABLE TO EAT WHAT HE WANTS. HE IS AWARE OF THE RISKS OF EATING AND DRINKING FOOD AND FLUIDS. DR. VILLAR NOTIFIED OF PT WISHES. DR. VILLAR AGREEABLE TO COMFORT CARE MEASURES. NOTIFIED FAMILY OF PT WISHES. SPOKE TO DALIA AND YOMAIRA. YOMAIRA STATED HE WOULD MAKE VISIT IN THE MORNING. HE WAS EDUCATED ON HIS BROTHERS CHOICES TO EAT AND DRINK DESPITE RISKS AND HIS CHOICE TO GO ON COMFORT CARE. YOMAIRA AND DALIA EDUCATED ON WHAT COMFORT CARE WAS. YOMAIRA V/U. COMFORT CARE ORDERS PLACED. PRIMARY RN UPDATED WITH POC.
[2025-03-10] MEDS ORDERED: Scopolamine Hydrobromide Patch TOP PRN (16:20)
[2025-03-10] MEDS ORDERED: Atropine Sulfate 1% Opth Soln 2ML BTL SL PRN (16:20)
[2025-03-10] MEDS ORDERED: LORazepam 1 MG Tab PO PRN (16:20)
[2025-03-10] MEDS ORDERED: Morphine Sulfate 20 MG/1ML 1 ML Oral Syringe SL PRN (16:20)
[2025-03-10] MEDS ORDERED: Acetaminophen 325 MG TABLET PO PRN (16:20)
[2025-03-10] MEDS ORDERED: Acetaminophen 650 MG Supp PR PRN (16:20)
[2025-03-10] MEDS ORDERED: Ondansetron 4 MG SoluTab SL PRN (16:30)
--- NOTE | 2025-03-10 17:56 | NUR ---
PT A&Ox3 ON 4LHFNC. HE IS LYING IN BED W/EYES CLOSED LISTENING TO MUSIC. PT DID MAKE DECISION TO BECOME A DNR TODAY AND ALSO TO BE SWITCHED TO COMFORT CARE. HE HAS A COLOSTOMY TO THE LLQ THAT IS PRODUCING SOFT BROWN FECES. HE GOES BETWEEN USING THE URINAL AND BEING INCONTINENT FOR URINE. HE IS A x2 ASSIST FOR TURNS IN BED. HIS CURRENT DIET IS MINCED AND MOIST W/NECTAR THICK LIQUIDS, BUT HE CAN BE ADVANCED TOLERATED. HE IS ALSO A FEEDER.
[2025-03-10] MEDS ORDERED: Metoprolol Succinate 25 MG TABCR PO SCH (21:00)
--- NOTE | 2025-03-11 05:45 | NUR ---
SHIFT SUMMARY PATIENT COMFORT CARE, MEDICAL NO TELE STATUS. PATIENT ALERT, ORIENTED x3. ABLE TO MAKE NEEDS KNOWN. ON 4L NC WI SPO2 MID 90s. DENIED PAIN DURING THE SHIFT. REPOSITIONED Q2. PATIENT TOLERATING SIPS OF THICKENED WATER. INCONTINENT, ATTENDS IN PLACE. NO OTHER CHANGES, WILL REPORT TO DAY SHIFT RN.
--- NOTE | 2025-03-11 11:05 | NUR ---
TRANSFER NOTE - AFTER GIVING REPORT TO MARGE RN, PT TRANSFERRED TO SURGICAL FLOOR ON 4LNC W/ALL PERSONAL BELONGINGS. PT A&Ox3, MAKES NEEDS KNOWN IN NO DISTRESS.
--- NOTE | 2025-03-11 11:24 | NUR ---
TRANSFER NOTE AFTER RECEIVING REPORT FROM SHAYY RASMUSSEN, PATIENT TRANSFERRED TO UNIT AT APPROX 1110. PATIENT ALERT AND ORIENTED X3. COMMUNICATES NEEDS EFFECTIVELY. ON 4L VIA NC - HUMIDIFIED FOR COMFORT. DENIES PAIN. ATTENDS C/D/I. COLOSTOMY EMPTIED - LOOSE BROWN OUTPUT. DENIES NEEDS AT THIS TIME. CALL LIGHT IN REACH.
--- NOTE | 2025-03-11 13:51 | NUR ---
"Spiritual Care Visit | Comfort Care Pt. has been moved to room 227 when this tender coordinator visits. Pt. is resting but responds when this tender coordinator enters the room. Pt. is on comfort care and is alone when this tender coordinator visits. Pt. is responsive and even pleasant. Pt. denies any pain, though also displays evidence of being somewhat confused about his condition. Pt. welcomed prayer. Prayed with Pt. Pt. verbalized gratitude for the spiritual care visit. Will remain available to the Pt."
--- NOTE | 2025-03-11 16:39 | NUR ---
SHIFT SUMMARY NO ACUTE CHANGES SINCE ARRIVAL TO UNIT. PATIENT REMAINS ALERT AND ORIENTED X3. SLEEPING THROUGHOUT AFTERNOON - EASILY AROUSABLE WITH VERBAL STIMULI. DENIES PAIN. REMAINS ON 4L VIA NC W/ HUMIDIFIER. OCCASIONAL CONGESTED NONPRODUCTIVE COUGH. REQUIRES FEED ASSIST - DECREASED APPETITE. ENCOURAGING PO INTAKE DURING PERIODS OF WAKEFULNESS. INCONTINENT OF URINE - ATTENDS IN PLACE, CHANGING PRN TO KEEP C/D/I. COLOSTOMY LLQ - LOOSE BROWN OUTPUT. REPOSITIONING IN BED TOLERATED - 2P ASSIST. CALL LIGHT IN REACH.
--- NOTE | 2025-03-12 06:20 | NUR ---
SHIFT SUMMARY NO ACUTE CHANGES T/O SHIFT. PT A/OX3-4. DENIED PAIN OR NEED FOR INTERVENTION. TURNED Q2/PRN FOR COMFORT. INCONT OF VOIDS, ATTENDS CHANGED PRN. SMALL AMOUNT OF LIQUID/SOFT BROWN STOOL NOTED IN OSTOMY. PT SHIRLEY SIPS OF THICK WATER BY SPOON WITH ASSISTED. IV PATENT IN LEFT AC. PLAN FOR POSSIBLE D/C HOME WITH HOSPICE. WILL GIVE REPORT TO ONCOMING RN.
[2025-03-12 10:59] VITALS: BP 117/59
[2025-03-12] MEDS ORDERED: Metoprolol Succinate 25 MG TABCR PO SCH (11:00)
[2025-03-12] MEDS ORDERED: Insulin Human Lispro 100 Units/ML 3ML Syringe SC SCH (11:30)
[2025-03-12] MEDS ORDERED: Ampicillin Sod/Sulbactam Sod 3 GM in NS 100 ML IV SCH (12:00)
[2025-03-12] MEDS ORDERED: NS 250 ML IV PRN (12:00)
[2025-03-12 13:28] LABS: Base Excess Venous 1.7 mmol/L; Bicarbonate Venous 25.6 mmol/L (24.0-30.0); PCO2 Venous 48.6 mmHg (38-42); pH Blood Venous 7.36 (7.34-7.37)
[2025-03-12 13:44] LABS: BASOPHILS ABSOLUTE AUTO 0.05 K/mm3 (0.00-0.23); BASOPHILS PERCENT AUTO 0 % (0-2); EOSINOPHILS ABSOLUTE AUTO 0.26 K/mm3 (0.00-0.68); EOSINOPHILS PERCENT AUTO 2 % (0-6); Hematocrit 30.4 % (37.0-53.0); Hemoglobin 9.3 g/dL (13.5-17.5); IMMATURE GRAN ABSOLUTE AUTO 0.19 K/mm3 (0.00-0.10); IMMATURE GRAN PERCENT AUTO 1 % (0-1); LYMPHOCYTES ABSOLUTE AUTO 1.12 K/mm3 (0.84-5.20); LYMPHOCYTES PERCENT AUTO 7 % (21-46); MONOCYTES ABSOLUTE AUTO 1.06 K/mm3 (0.16-1.47); MONOCYTES PERCENT AUTO 7 % (4-13); Mean Corpuscular HGB 30.7 pg (26.0-34.0); Mean Corpuscular HGB Conc 30.6 g/dL (31.5-36.5); Mean Corpuscular Volume 100 fL (80-100); NEUTROPHILS ABSOLUTE AUTO 13.46 K/mm3 (1.96-9.15); NEUTROPHILS PERCENT AUTO 83 % (41-73); RDW Coefficient Variation 14.9 % (11.7-14.2); RDW Standard Deviation 54.9 fL (35.1-46.3); Red Blood Cell Count 3.03 M/mm3 (4.30-5.90); White Blood Cell Count 16.14 K/mm3 (4.00-11.30)
[2025-03-12] MEDS ORDERED: Aspirin 81 MG Chew PO SCH (14:00)
[2025-03-12 14:23] LABS: Albumin, Blood 2.1 g/dL (3.4-5.0); Albumin/Globulin Ratio 0.4 (0.8-1.8); Bilirubin, Total 0.3 mg/dL (0.1-1.0); Calcium, Blood 8.6 mg/dL (8.5-10.1); Globulin, Blood 4.8 g/dL (2.2-4.0); Magnesium, Blood 2.5 mg/dL (1.6-2.4); Phosphorus, Blood 3.9 mg/dL (2.5-4.9); Potassium, Blood 4.9 mmol/L (3.5-5.5); Total Protein, Blood 6.9 g/dL (6.4-8.2)
[2025-03-12 14:32] LABS: Mean Platelet Volume 10.7 fL (9.1-12.4); Platelet Count 217 K/mm3 (150-400)
[2025-03-12 14:45] VITALS: BP 136/72
[2025-03-12] MEDS ORDERED: Enoxaparin 40 MG/0.4 ML SYR SC SCH (15:00)
--- NOTE | 2025-03-12 15:59 | NUR ---
SHIFT SUMMARY COMFORT CARE ORDERS DISCONTINUED. PT REPORTS FEELING BETTER. S/P R HIP PINNING. AQUACEL DRESSING WITH A SMALL SPOT OF OLD DRY DRAINAGE. PT DENIES PAIN. REPOSITIONING Q2 PRN. PHYSICAL THERAPY EVAL TODAY. PT REQUIRES A LIFT TO GET OUT OF BED. VSS. ON 4L HUMIDIFIED O2 VIA NC. IV ABX PER ORDERS. PT TOLERATING THICKENED LIQUIDS. A+0 X4 AND USES CALL LIGHT APPROPRIATELY.
[2025-03-12 20:04] VITALS: BP 117/66
[2025-03-12] MEDS ORDERED: Lactobacil 2-S.Thermo-Bifido 1 1 Cap PO SCH (21:00)
[2025-03-13 03:11] VITALS: BP 130/69
--- NOTE | 2025-03-13 04:34 | NUR ---
SHIFT SUMMARY A/OX3, VERY WEAK. BEDREST/LIFT. DENIES PAIN/SOB. CURRENTLY ON 4L NC. DYSPHAGIA NOTED WITH SMALL SIPS OF THICKENED WATER. Q2 TURNS. VSS, NO ACUTE CHANGES AT THIS TIME.
[2025-03-13 05:23] LABS: BASOPHILS ABSOLUTE AUTO 0.07 K/mm3 (0.00-0.23); BASOPHILS PERCENT AUTO 1 % (0-2); EOSINOPHILS ABSOLUTE AUTO 0.23 K/mm3 (0.00-0.68); EOSINOPHILS PERCENT AUTO 2 % (0-6); Hematocrit 31.5 % (37.0-53.0); Hemoglobin 9.1 g/dL (13.5-17.5); IMMATURE GRAN ABSOLUTE AUTO 0.17 K/mm3 (0.00-0.10); IMMATURE GRAN PERCENT AUTO 1 % (0-1); LYMPHOCYTES ABSOLUTE AUTO 1.27 K/mm3 (0.84-5.20); LYMPHOCYTES PERCENT AUTO 9 % (21-46); MONOCYTES PERCENT AUTO 7 % (4-13); Mean Corpuscular HGB 29.9 pg (26.0-34.0); Mean Corpuscular HGB Conc 28.9 g/dL (31.5-36.5); Mean Corpuscular Volume 104 fL (80-100); Mean Platelet Volume 10.4 fL (9.1-12.4); NEUTROPHILS ABSOLUTE AUTO 11.24 K/mm3 (1.96-9.15); NEUTROPHILS PERCENT AUTO 80 % (41-73); Platelet Count 251 K/mm3 (150-400); RDW Standard Deviation 56.9 fL (35.1-46.3); Red Blood Cell Count 3.04 M/mm3 (4.30-5.90); White Blood Cell Count 13.98 K/mm3 (4.00-11.30)
[2025-03-13 05:56] LABS: Bun/Creatinine Ratio 41.3 (12.0-20.0); Calcium, Blood 8.7 mg/dL (8.5-10.1); Creatinine, Blood 1.09 mg/dL (0.60-1.20); Potassium, Blood 4.8 mmol/L (3.5-5.5)
[2025-03-13 07:24] VITALS: BP 125/64
[2025-03-13] MEDS ORDERED: Dextrose 5% 1,000 ML IV SCH (09:00)
[2025-03-13] MEDS ORDERED: Atorvastatin 40 MG Tab PO SCH (09:00)
[2025-03-13 10:49] LABS: Bun/Creatinine Ratio 43.8 (12.0-20.0); Creatinine, Blood 1.05 mg/dL (0.60-1.20); Potassium, Blood 4.8 mmol/L (3.5-5.5)
[2025-03-13] MEDS ORDERED: Megestrol Acetate Susp 400MG/10ML UDC PO SCH (13:00)
[2025-03-13 14:40] LABS: Bun/Creatinine Ratio 42.5 (12.0-20.0); Calcium, Blood 8.5 mg/dL (8.5-10.1); Creatinine, Blood 1.06 mg/dL (0.60-1.20); Potassium, Blood 4.6 mmol/L (3.5-5.5)
[2025-03-13 14:49] VITALS: BP 121/64
--- NOTE | 2025-03-13 16:07 | NUR ---
SHIFT SUMMARY NO ACUTE CHANGES T/O SHIFT. PT IS ALERT AND ORIENTED. DENIES PAIN, REPOSITIONED Q2 FOR COMFORT. PT SHIRLEY SMALL SIPS OF THICKENED WATER BY SPOON WITH ASSISTANCE. PLAN FOR POSSIBLE D/C TOMORROW TO SNF. PT IS ON 4L HUMIDIFIED O2 VIA NC. VSS. IV ABX AND D5NS PER ORDERS. USES CALL LIGHT APPROPRIATELY.
--- NOTE | 2025-03-13 16:31 | NUR ---
AGREE WITH STUDENT NURSE SHIFT ASSESSMENT AND DOCUMENTATION.
[2025-03-13 18:14] LABS: Bun/Creatinine Ratio 41.1 (12.0-20.0); Calcium, Blood 8.7 mg/dL (8.5-10.1); Creatinine, Blood 1.07 mg/dL (0.60-1.20); Potassium, Blood 4.7 mmol/L (3.5-5.5)
[2025-03-13 19:28] VITALS: BP 131/69
[2025-03-13] MEDS ORDERED: Mirtazapine 15 MG SoluTab PO SCH (21:00)
[2025-03-13 23:40] LABS: Bun/Creatinine Ratio 40.6 (12.0-20.0); Calcium, Blood 8.3 mg/dL (8.5-10.1); Creatinine, Blood 1.06 mg/dL (0.60-1.20); Potassium, Blood 4.4 mmol/L (3.5-5.5)
[2025-03-14 03:26] LABS: Bun/Creatinine Ratio 40.8 (12.0-20.0); Calcium, Blood 8.4 mg/dL (8.5-10.1); Creatinine, Blood 1.03 mg/dL (0.60-1.20); Potassium, Blood 4.3 mmol/L (3.5-5.5)
[2025-03-14 05:25] VITALS: BP 138/68
[2025-03-14 06:32] LABS: Bun/Creatinine Ratio 35.5 (12.0-20.0); Calcium, Blood 8.4 mg/dL (8.5-10.1); Creatinine, Blood 1.1 mg/dL (0.60-1.20); Potassium, Blood 4.3 mmol/L (3.5-5.5)
--- NOTE | 2025-03-14 06:37 | NUR ---
HUMAN RESOURCES MANAGER SUMMARY PT AAOX3, PLEASANT AND COOPERATIVE BUT STILL VERY WEAK. FREQUENT REPOSITIONING AND ATTENDS CHANGES PT IS INCONTINENT OF URINE. OSTOMY BAG EMPTIED AROUND MIDNIGHT, SOFT BROWN STOOL. NEW IV PLACED VIA US BY PCU CHARGE DUE TO INFILTRATION OF PREVIOUS IV. PT CONTINUES ON D5 DRIP HOWEVER SODIUM STILL 153 WITH MORNING LABS. PT HAD A LOT OF DIFFICULTY SWALLING MEDICATIONS TONIGHT EVEN THOUGH THEY WERE CRUSHED AND PUT IN VERY THICKENED WATER, WAS ONLY ABLE TO SWALLOW HALF OF PO MEDS. VSS, WILL CONTINUE TO MONITOR.
[2025-03-14 07:07] VITALS: BP 138/68
[2025-03-14] MEDS ORDERED: Furosemide 10 MG / ML 2ML Vial IV ONE (07:30)
--- NOTE | 2025-03-14 07:30 | NUR ---
Patient arrived from room 227 as rapid response with resp. distress and is on 15L O2 via NRM and sats >90%. He is ubtunded and mumbles communication. He has audible coarse breath sounds. Awaiting VBG results. He was placed in PCU 15. Assessment done. Suctioned hooked up and oral suction when he coughs up mucus. Dr Quinn aware and is on his way down. Xray done.
[2025-03-14] MEDS ORDERED: Metolazone 5 MG Tab PO ONE (07:35)
--- NOTE | 2025-03-14 08:00 | NUR ---
RAPID RESPONSE RAPID RESPONSE CALLED AT APPROXIMATELY 0715 R/T INCREASED WOB AND O2 SATURATIONS AT 69-79% ON 4L O2 VIA NC. PT TRANSITIONED TO NON-REBREATHER WIDE OPEN, O2 SATURATION SLOWLY INCREASED TO 98%. WOB REMAINED ELEVATED AND PT DROWSY BUT WOKE WHEN SPOKEN TO AND RESPONDED APPROPRIATELY TO QUESTIONS. LUNG SOUNDS CRACKLY T/O. PT TRANSFERRED TO PCU AT APPROXIMATELY 0750, BEDSIDE REPORT GIVEN TO MICHEL JIMENEZ RN.
[2025-03-14 08:10] LABS: Bicarbonate Venous 25.7 mmol/L (24.0-30.0); PCO2 Venous 79.6 mmHg (38-42)
[2025-03-14 08:11] VITALS: BP 125/84
--- NOTE | 2025-03-14 08:15 | NUR ---
NRB mask off and is on L O2 via HF humidified NC and sats 100%. Spoke with Dr waters and starting albumin. Reported VBG results to Dr Waters no new orders. Patient a little more awake and states he could swallow small pills with sips of water. New blood and cultures done.
[2025-03-14 08:26] LABS: Magnesium, Blood 2.6 mg/dL (1.6-2.4); Phosphorus, Blood 3.9 mg/dL (2.5-4.9); Thyroid Stimulating Hormone 1.1 uIU/mL (0.360-4.800)
[2025-03-14] MEDS ORDERED: Albumin (Human) 25gm/100ml 100 ML IV SCH (09:00)
[2025-03-14] MEDS ORDERED: Metolazone 5 MG Tab PO SCH (09:29)
[2025-03-14] MEDS ORDERED: Albuterol 2.5 MG/3 ML VIAL INH PRN (09:30)
--- NOTE | 2025-03-14 09:30 | NUR ---
Tried giving patient sips with meds and by last colace he was coughing and sats dropped to 70's and let him rest. Spoke with Dr Quinn about patient looks to be aspirating related to increased lethargy. Will place patient back on BIPAP if not breathing better and deeper. He is able to speak short sentences. Patient is on HF NC humidified at 6L O2 and sats >90%. patient recieved bath and oral care by aid and CN. Tolerated well, Holding r/t aspiration.
[2025-03-14] MEDS ORDERED: Furosemide 10 MG / ML 2ML Vial IV SCH (10:00)
[2025-03-14 11:35] LABS: Base Excess Venous 4.9 mmol/L; Bicarbonate Venous 26.9 mmol/L (24.0-30.0); PCO2 Venous 84.6 mmHg (38-42)
--- NOTE | 2025-03-14 11:40 | NUR ---
Patient now on BIPAP 16/10 at 50% FiO2 and sats >90%. VBG draw and was worse than last one, next VBG at 1330. CBG 192, no coverage as patient NPO. Will continue to monitor for changes VSS.
[2025-03-14 12:10] VITALS: BP 115/67
--- NOTE | 2025-03-14 12:24 | NUR ---
Increased FiO2 to 60% for sats <88%. Patient slow to respond verbally. Purwick in place
[2025-03-14 13:38] LABS: Base Excess Venous 4.5 mmol/L; Bicarbonate Venous 27.3 mmol/L (24.0-30.0); PCO2 Venous 73.8 mmHg (38-42); pH Blood Venous 7.24 (7.34-7.37)
--- NOTE | 2025-03-14 16:43 | NUR ---
Patient continues to rest 16/10 at FiO2 60% and sats 100%. Took mask off for several minutes and perfored oral care and removed small cast from BIPAP and restarted BIPAP at same settings. He opens eye clearly when call his name with some mumbleing communication
--- NOTE | 2025-03-14 19:34 | NUR ---
ASSUMPTION OF CARE ASSUMED PT'S CARE AT 1900,BEDSIDE REPORT COMPLETED WITH [facility] NURSE.PT AWAKE WATCHING TV,ON BIPAP.PT STATES THAT HE IS TOLERATING IT WELL.ADJUSTED IN BED.PLAN OF CARE REVIEWED.PT DENIES PAIN,DENIES SOB,DENIES NUMBNESS/TINGLING,DENIES NEEDS.CALL LIGHT AND PT'S ITEMS WITHIN REACH,SAFETY MEASURES IN PLACE.ONGOING MONITORING ACCORDING TO CARE PLAN.
[2025-03-14 20:20] VITALS: BP 128/79
[2025-03-14 23:20] VITALS: BP 101/59
[2025-03-15 03:36] VITALS: BP 133/69
[2025-03-15 04:32] LABS: BASOPHILS ABSOLUTE AUTO 0.07 K/mm3 (0.00-0.23); BASOPHILS PERCENT AUTO 0 % (0-2); EOSINOPHILS ABSOLUTE AUTO 0.15 K/mm3 (0.00-0.68); EOSINOPHILS PERCENT AUTO 1 % (0-6); Hematocrit 35.8 % (37.0-53.0); Hemoglobin 10.1 g/dL (13.5-17.5); IMMATURE GRAN ABSOLUTE AUTO 0.15 K/mm3 (0.00-0.10); IMMATURE GRAN PERCENT AUTO 1 % (0-1); LYMPHOCYTES ABSOLUTE AUTO 0.82 K/mm3 (0.84-5.20); LYMPHOCYTES PERCENT AUTO 4 % (21-46); MONOCYTES ABSOLUTE AUTO 0.91 K/mm3 (0.16-1.47); MONOCYTES PERCENT AUTO 5 % (4-13); Mean Corpuscular HGB 29.4 pg (26.0-34.0); Mean Corpuscular HGB Conc 28.2 g/dL (31.5-36.5); Mean Corpuscular Volume 104 fL (80-100); Mean Platelet Volume 10.7 fL (9.1-12.4); NEUTROPHILS ABSOLUTE AUTO 18.26 K/mm3 (1.96-9.15); NEUTROPHILS PERCENT AUTO 90 % (41-73); Platelet Count 187 K/mm3 (150-400); RDW Coefficient Variation 14.7 % (11.7-14.2); RDW Standard Deviation 56.5 fL (35.1-46.3); Red Blood Cell Count 3.44 M/mm3 (4.30-5.90); White Blood Cell Count 20.36 K/mm3 (4.00-11.30)
[2025-03-15 04:56] LABS: Albumin, Blood 2.8 g/dL (3.4-5.0); Albumin/Globulin Ratio 0.5 (0.8-1.8); Bilirubin, Total 0.4 mg/dL (0.1-1.0); Bun/Creatinine Ratio 32.8 (12.0-20.0); Calcium, Blood 8.9 mg/dL (8.5-10.1); Creatinine, Blood 1.16 mg/dL (0.60-1.20); Globulin, Blood 5.1 g/dL (2.2-4.0); Potassium, Blood 4.1 mmol/L (3.5-5.5); Total Protein, Blood 7.9 g/dL (6.4-8.2)
--- NOTE | 2025-03-15 06:38 | NUR ---
PT TOLERATED THE BIPAP THROUGHOUT THE NIGHT.PT'S ALERTNESS IMPROVED THROUGHOUT THE NIGHT.PT AWAKE AND ALERT THIS MORNING.ORAL CARE COMPLETED EVERY FOUR HOURS DUE TO PT NOT BEING ABLE TO TOLERATE OFF THE BIPAP .OXYGEN SATURATION DROPS DOWN TO THE 80'S WHEN OFF THE BIPAP.ORAL MUCOSA DRY AND BLEEDING,DRIED MUCUS AT THE BACK OF THE THROAT.ORAL SUCTION COMPLETED WITH ORAL CARES.LIP MOISTURIZER APPLIED WITH EACH ORAL CARE.PT REPORTS THIS MORNING THAT HE IS FEELING BETTER.PT DENIES PAIN,DENIES NEEDS.CALL LIGHT AND PT'S ITEMS WITHIN REACH.SAFETY MEASURES IN PLACE.
[2025-03-15 07:48] VITALS: BP 128/74
[2025-03-15 09:04] LABS: Adenovirus Not Detected (NOT DETECT); Bordetella pertussis Not Detected (NOT DETECT); Chlamydophila pneumoniae Not Detected (NOT DETECT); Coronavirus 229E Not Detected (NOT DETECT); Coronavirus HKU1 Not Detected (NOT DETECT); Coronavirus NL63 Not Detected (NOT DETECT); Coronavirus OC43 Not Detected (NOT DETECT); Human Metapneumovirus Not Detected (NOT DETECT); Human Rhinovirus/Enterovirus Not Detected (NOT DETECT); Influenza A/2009-H1 Not Detected (NOT DETECT); Influenza A/H1 Not Detected (NOT DETECT); Influenza A/H3 Not Detected (NOT DETECT); Influenza B Not Detected (NOT DETECT); Mycoplasma pneumoniae Not Detected (NOT DETECT); Parainfluenza Virus 1 Not Detected (NOT DETECT); Parainfluenza Virus 2 Not Detected (NOT DETECT); Parainfluenza Virus 3 Not Detected (NOT DETECT); Parainfluenza Virus 4 Not Detected (NOT DETECT); Respiratory Syncytial Virus Not Detected (NOT DETECT); SARS-Cov-2 (COVID-19), BioFire Not Detected (NOT DETECT)
[2025-03-15] MEDS ORDERED: Sodium Chloride 3% For Inhalation 15 ML VIAL.NEB INH SCH (10:05)
[2025-03-15] MEDS ORDERED: Albuterol 2.5 MG/3 ML VIAL INH SCH (10:05)
[2025-03-15] MEDS ORDERED: Acetylcysteine 200 MG/ML 4ML Vial INH SCH (10:10)
[2025-03-15 11:13] VITALS: BP 134/66
[2025-03-15 11:24] LABS: Base Excess Venous 8.7 mmol/L; Bicarbonate Venous 31.2 mmol/L (24.0-30.0); PCO2 Venous 55.7 mmHg (38-42); pH Blood Venous 7.39 (7.34-7.37)
[2025-03-15] MEDS ORDERED: Insulin Human Lispro 100 Units/ML 3ML Syringe SC SCH (12:00)
--- NOTE | 2025-03-15 12:06 | NUR ---
AM NOTE: PATIENT WEARING BIPAP UPON SHIFT START. ABLE TO ANSWER WHO HE IS, WHERE HE IS, AND SOME DETAILS OF WHY HE IS HERE. NOT ABLE TO TELL ME DATE/TIME. OVERALL VERY WEAK WITH LIMITED ROM. 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 Q2 TURNING AND NEEDED. RIGHT HIP PINNING ON 03/06. DRESSING C/D/I. PATIENT DENIES PAIN. TELE SHOWING SR WITH PAC'S. HR 80'S. DENIES CHEST PAIN/PRESSURE/PALPITATIONS. GENERALIZED EDEMA NOTED WELL +1 TO BUE. ALBUMIN INFUSED THIS AM. PPP. TITRATED TO 3L NASAL CANNULA THIS AM, PATIENT OXYGEN SATURATION 90-95% ON 3L. SHALLOW BREATHING WITH VERY WEAK COUGH. VERY DIMINISHED AIR FLOW HEARD UPON LUNG AUSCULTATION. COARSENESS NOTED. DR. GAMBLE IN TO SEE PATIENT THIS MORNING. RESPIRATORY CARE IN FOR BREATHING TREATMENTS AND CHEST PHYSIOTHERAPY. FLUTTER AND IS USED. SPUTUM SAMPLE SENT. PATIENT ENCOURAGED TO COUGH. BIPAP IN PLACE WHEN PATIENT IS SLEEPING. REPEAT VBG COMPLETED AND PLAN FOR 03/16 AM VBG. BOWEL TONES PRESENT. PATIENT NPO AT THIS TIME. THIS RN DISCUSSED NPO STATUS AND PREVIOUS SPEECH EVALUATIONS WITH DR. AVALOS. THIS RN PREFORMED BEDSIDE SWALLOW EVAL AND PATIENT BEGAN COUGHING WITH VERY SMALL SIP OF WATER VIA SPOON. PO MEDICATIONS HELD. COLOSTOMY TO LLQ WITH SOFT/BROWN OUTPUT. DENIES ABDOMINAL PAIN/NAUSEA. SKIN PALE WITH SCATTERED REDNESS TO COCCYX, LLQ, RIGHT KNEE AND GROIN. THIS RN PLACED CALL TO BROTHER KEITH WITH PATIENT PERMISSION. UPDATE PROVIDED. PLAN FOR KEITH AND OTHER BROTHER LINDA TO COME IN 03/16 AM AND VISIT. THIS RN DISCUSSED CODE STATUS WITH PATIENT AND PATIENT CONFIRMS FULL CODE. DON STATES TO THIS RN ON PHONE "WE HAVE NEVER HAD A CONVERSATION ABOUT MIKEL WANTS/WISHES". DON STATES THEY USED TO HAVE A CAREGIVER WHO WOULD HELP AT HOME BUT THEY NO LONGER DO AND DON STATES HE WOULD NOT BE ABLE TO CARE FOR MIKEL. CALL LIGHT IN REACH. PATIENT DENIES NEEDS, RESTING IN BED AT THIS TIME WITH BIPAP IN PLACE.
[2025-03-15 12:43] LABS: Acinetobacter baumannii DNA Not Detected copy/mL (NOT DETECT); Adenovirus DNA Not Detected (NOT DETECT); Chlamydia pneumonia Not Detected (NOT DETECT); Enterobacter cloacae DNA Not Detected copy/mL (NOT DETECT); Escherichia coli DNA Not Detected copy/mL (NOT DETECT); Haemophilus influenzae DNA Not Detected copy/mL (NOT DETECT); Human Coronavirus RNA Not Detected (NOT DETECT); Human Metapneumovirus RNA Not Detected (NOT DETECT); Influenza virus A RNA Not Detected (NOT DETECT); Influenza virus B RNA Not Detected (NOT DETECT); Klebsiella aerogenes DNA Not Detected copy/mL (NOT DETECT); Klebsiella oxytoca DNA Not Detected copy/mL (NOT DETECT); Klebsiella pneumoniae DNA Not Detected copy/mL (NOT DETECT); Legionella pneumophila Not Detected (NOT DETECT); Moraxella catarrhalis DNA Not Detected copy/mL (NOT DETECT); Mycoplasma pneumoniae Not Detected (NOT DETECT); Parainfluenza virus RNA Not Detected (NOT DETECT); Proteus sp DNA Not Detected copy/mL (NOT DETECT); Pseudomonas aeruginosa DNA Not Detected copy/mL (NOT DETECT); Respiratory syncytial Vir RNA Not Detected (NOT DETECT); Rhinovirus+Enterovirus RNA Not Detected (NOT DETECT); Serratia marcescens DNA Not Detected copy/mL (NOT DETECT); Staphylococcus aureus DNA Not Detected copy/mL (NOT DETECT); Streptococcus agalactiae DNA Not Detected copy/mL (NOT DETECT); Streptococcus pneumoniae DNA Not Detected copy/mL (NOT DETECT); Streptococcus pyogenes DNA Not Detected copy/mL (NOT DETECT)
[2025-03-15 15:13] VITALS: BP 128/63
--- NOTE | 2025-03-15 18:21 | NUR ---
SHIFT SUMMARY: PATIENT REMAINS ALERT AND ORIENTED. Q2 TURNING AND NEEDED. PATIENT WORE BIPAP DURING NAPS THROUGHOUT DAY AND WEARING 2.5-3L NASAL CANNULA WHEN OFF BIPAP. PATIENT REMAINS NPO, FAILED BEDSIDE SWALLOW EVAL AND NEW SPEECH THERAPY ORDERS IN PLACE. TELE SHOWING SR WITH HR 80-90'S. CHEST PHYSIOTHERAPY COMPLETED X2 ON THIS SHIFT. FLUTTER AND IS PREFORMED Q2 WITH PATIENT. PATIENT ABLE TO EXPELL SOME MUCUS POST CHEST PHYSIOTHERAPY AND FLUTTER VALVE. SPUTUM SAMPLE SENT TO LAB. IV ABX INFUSING AT THIS TIME. BARRIER CREAM APPLIED TO GROIN/SCROTUM AND COCCYX. COCCYX MEPILEX REPLACED. COLOSTOMY DRAINAGE CONTINUES TO BE BROWN/SOFT. INCONTINENT OF URINE, ATTENDS IN PLACE. SPOKE WITH DR. AVALOS THIS AFTERNOON ABOUT BEDSIDE SWALLOW EVAL, SPEECH THERAPY, PLAN FOR BROTHERS TO VISIT ON 03/16 AND ATTEMPTS TO REACH PALLIATIVE CARE RN. CALL LIGHT IN REACH. PATIENT RESTING AT THIS TIME ON 2.5L NASAL CANNULA. DENIES NEEDS.
--- NOTE | 2025-03-15 19:43 | NUR ---
ASSUMPTION OF CARE PT RESTING IN BED,OPENS EYES TO VERBAL COMMAND.DENIES PAIN,DENIES NEEDS.ON BIPAP.BEDSIDE REPORT COMPLETED,PLAN OF CARE REVIEWED.CALL LIGHT AND PT'S ITEMS WITHIN REACH.SAFETY MEASURE IN PLACE.ONGOING MONITORING AND TREATMENT PER CARE PLAN.
[2025-03-15 19:58] VITALS: BP 138/77
[2025-03-16] VITALS (9 sets, daily range): BP systolic 112–166; BP diastolic 56–76
[2025-03-16 04:27] LABS: Base Excess Venous 11.3 mmol/L; Bicarbonate Venous 33.6 mmol/L (24.0-30.0); PCO2 Venous 49.7 mmHg (38-42); pH Blood Venous 7.46 (7.34-7.37)
[2025-03-16 04:51] LABS: Hematocrit 31.1 % (37.0-53.0); Mean Corpuscular HGB 29.7 pg (26.0-34.0); Mean Corpuscular HGB Conc 28.9 g/dL (31.5-36.5); Mean Corpuscular Volume 103 fL (80-100); Platelet Count 141 K/mm3 (150-400); RDW Coefficient Variation 14.8 % (11.7-14.2); RDW Standard Deviation 56.1 fL (35.1-46.3); Red Blood Cell Count 3.03 M/mm3 (4.30-5.90); White Blood Cell Count 15.69 K/mm3 (4.00-11.30)
[2025-03-16 05:20] LABS: Albumin, Blood 2.7 g/dL (3.4-5.0); Anion Gap 4 mmol/L (3-11); Blood Urea Nitrogen 37 mg/dL (8-24); Bun/Creatinine Ratio 31.6 (12.0-20.0); CO2, Blood 35 mmol/L (21-32); Chloride, Blood 122 mmol/L (98-108); Creatinine, Blood 1.17 mg/dL (0.60-1.20); Glomerular Filtration Rate 67 (60-); Glucose, Blood 148 mg/dL (70-99); Magnesium, Blood 2.7 mg/dL (1.6-2.4); Phosphorus, Blood 2.7 mg/dL (2.5-4.9); Potassium, Blood 3.3 mmol/L (3.5-5.5); Sodium, Blood 158 mmol/L (136-145)
--- NOTE | 2025-03-16 06:43 | NUR ---
PT HAS BEEN SLEEPING THROUGHOUT THE NIGHT,ALERT,OPENS EYES UPON STAFF WALKING INTO THE ROOM.ORAL CARE COMPLETED.PT ASKING FOR WATER,MOUTH SWABBED WITH ORAL WET SPONGE TO MOISTEN ORAL MUCOSA.ONGOING ASSESSMENT WITH NO CHANGES OBSERVED AT THIS TIME.TOLERATED THE BIPAP THROUGHTOUT THE SHIFT.PT DENIES PAIN,DENIES NEEDS.CALL LIGHT AND PT'S ITEMS WITHIN REACH,SAFETY MEASURES IN PLACE.
[2025-03-16] MEDS ORDERED: Dextrose 5% 1,000 ML IV SCH (08:05)
[2025-03-16] MEDS ORDERED: Potassium Chl 20MEQ/Water100ML 100 ML IV STA (08:20)
--- NOTE | 2025-03-16 09:00 | NUR ---
AM NOTE: PATIENT ALERT AND ORIENTED X3. VOICE REMAINS SOFT. VERY WEAK WITH LIMITED RANGE OF MOTION DUE TO DECREASED STRENGTH. NEEDS MOTIVATION AND ENCOURAGEMENT TO PARTICIPATE IN CARES. Q2 TURNING AND NEEDED. FOLLOWING ALL COMMANDS. MOVING ALL EXTREMITIES. HISTORY OF CVA WITH RESIDUAL RIGHT SIDE WEAKNESS. TELE SHOWING SR WITH PAC'S. DENIES CHEST PAIN/PRESSURE/PALPITATIONS. EDEMA NOTED. IV FLUIDS INFUSING PER EMAR. POTASSIUM REPLACED. WEARING BIPAP WHEN SLEEPING 16/10 AND 30% FIO2. WEARING 2-3L NASAL CANNULA WHEN OFF BIPAP. FLUTTER AND IS USED WITH RN ASSISTANCE. PATIENT ENCOURAGED TO COUGH. RT IN FOR BREATHING TREATMENTS AND CHEST PHYSIOTHERAPY. NEW CHEST XRAY COMPELTED THIS AM. SUCTION AT BEDSIDE. BOWEL TONES PRESENT. PATIENT REMAINS NPO DUE TO ASPIRATION. PLAN FOR PPN AND SPEECH EVAL IN THE NEXT FEW DAYS. USABILITY STRATEGIST CONSULT IN PLACE. COLOSTOMY TO LLQ WITH MINIMAL SOFT BROWN OUTPUT. ATTENDS IN PLACE. GROIN RED/EXCORIATED. ZINC CREAM APPLIED. BED BATH COMPLETED THIS AM. COCCYX RED WITH MEPILEX IN PLACE. SEE CHART PHOTOS. BROTHERS KEITH AND LINDA TO BEDSIDE THIS AM AND UPDATED BY THIS RN. CALL LIGHT IN REACH. PATIENT RESTING IN BED AT THIS TIME WITH NASAL CANNULA IN PLACE. DENIES NEEDS.
[2025-03-16] MEDS ORDERED: TPN Consult Notification XX ONE (11:15)
[2025-03-16] MEDS ORDERED: Metoprolol Tartrate 1 MG/ML 5 ML VIAL IV ONE (12:40)
--- NOTE | 2025-03-16 12:54 | NUR ---
PATIENT HAD SMALL ROUND OF AFIB WITH HR UP TO 140'S. THEN CONVERTED BACK TO SINUS RHYTHM AND HAD A SMALL RUN OF BIGEM WITH PACS. SEE SAVED TELE STRIPS. DR. DUNCAN CALLED AND TO BEDSIDE. DR. DUNCAN VISUALIZED TELE. ORDERS FOR LOPRESSOR 5MG IV X1 NOW. ORDERS IN PLACE. LOPRESSOR GIVEN. TELE SHOWING SR WITH HR 70'S. DR. DUNCAN UPDATED. ORDERS FOR LOPRESSOR 5MG IV PRN Q6 FOR HEART RATE GREATER THAN 110. ORDERS IN PLACE.
[2025-03-16] MEDS ORDERED: Metoprolol Tartrate 1 MG/ML 5 ML VIAL IV PRN (13:05)
[2025-03-16 14:50] LABS: Bun/Creatinine Ratio 32.4 (12.0-20.0); Calcium, Blood 8.7 mg/dL (8.5-10.1); Creatinine, Blood 1.11 mg/dL (0.60-1.20); Potassium, Blood 3.5 mmol/L (3.5-5.5)
[2025-03-16] MEDS ORDERED: Parenteral Electolytes 40 ML,Potassium Phosphate Dibasic 30 MM,Multivitamins 10 ML,ZINC... IV SCH (17:00)
--- NOTE | 2025-03-16 17:48 | NUR ---
SHIFT SUMMARY: PATIENT REMAINS ALERT AND ORIENTED X3. SEE PREVIOUS NOTE FOR UPDATE ON TELE EVENT THIS AFTERNOON. PATIENT IN SINUS RHYTHM AT THIS TIME WITH HR 80'S. DENIES CHEST PAIN/PRESSURE/PALPITATIONS. ON 2L NASAL CANNULA SATING ABOVE 95%. WEARING BIPAP WHEN SLEEPING 16/10 AT 30%. CONTINUES TO USE FLUTTER AND IS WITH NURSE ASSISTANCE. CHEST PHYSIOTHERAPY THROUGHOUT THE DAY. REMAINS NPO. PPN INFUSING. IV ABX INFUSED. POTASSIUM REPLACED THIS AM. CALL LIGHT IN REACH. DENIES NEEDS AT THIS TIME.
[2025-03-17 03:22] VITALS: BP 104/59
[2025-03-17 03:57] LABS: Base Excess Venous 12.1 mmol/L; Bicarbonate Venous 34.3 mmol/L (24.0-30.0); PCO2 Venous 61.2 mmHg (38-42); pH Blood Venous 7.39 (7.34-7.37)
[2025-03-17 04:17] LABS: BASOPHILS ABSOLUTE AUTO 0.04 K/mm3 (0.00-0.23); BASOPHILS PERCENT AUTO 0 % (0-2); EOSINOPHILS ABSOLUTE AUTO 0.35 K/mm3 (0.00-0.68); EOSINOPHILS PERCENT AUTO 3 % (0-6); Hematocrit 28.2 % (37.0-53.0); Hemoglobin 8.1 g/dL (13.5-17.5); IMMATURE GRAN ABSOLUTE AUTO 0.14 K/mm3 (0.00-0.10); IMMATURE GRAN PERCENT AUTO 1 % (0-1); LYMPHOCYTES ABSOLUTE AUTO 1.16 K/mm3 (0.84-5.20); LYMPHOCYTES PERCENT AUTO 10 % (21-46); MONOCYTES ABSOLUTE AUTO 0.67 K/mm3 (0.16-1.47); MONOCYTES PERCENT AUTO 6 % (4-13); Mean Corpuscular HGB 29.7 pg (26.0-34.0); Mean Corpuscular HGB Conc 28.7 g/dL (31.5-36.5); Mean Corpuscular Volume 103 fL (80-100); Mean Platelet Volume 10.9 fL (9.1-12.4); NEUTROPHILS ABSOLUTE AUTO 9.72 K/mm3 (1.96-9.15); NEUTROPHILS PERCENT AUTO 81 % (41-73); Platelet Count 124 K/mm3 (150-400); RDW Coefficient Variation 15.3 % (11.7-14.2); Red Blood Cell Count 2.73 M/mm3 (4.30-5.90); White Blood Cell Count 12.08 K/mm3 (4.00-11.30)
[2025-03-17 04:43] LABS: Anion Gap 6 mmol/L (3-11); Blood Urea Nitrogen 33 mg/dL (8-24); Bun/Creatinine Ratio 31.4 (12.0-20.0); CO2, Blood 34 mmol/L (21-32); Calcium, Blood 8.5 mg/dL (8.5-10.1); Chloride, Blood 118 mmol/L (98-108); Creatinine, Blood 1.05 mg/dL (0.60-1.20); Glomerular Filtration Rate 76 (60-); Glucose, Blood 190 mg/dL (70-99); Magnesium, Blood 2.7 mg/dL (1.6-2.4); Phosphorus, Blood 4.6 mg/dL (2.5-4.9); Potassium, Blood 3.5 mmol/L (3.5-5.5); Sodium, Blood 154 mmol/L (136-145); Triglycerides 116 mg/dL (30-160)
--- NOTE | 2025-03-17 05:03 | NUR ---
SHIFT SUMMARY NO ACUTE CHANGES THIS SHIFT. AXO3. ON 3-6L HUMIDIFIED NC DEPENDENT ON POSITIONING IN BED AND MUCOUS EXPETORATION. REPEAT VBG SHOWS COMPENSATION FOR C02 LEVELS AK RT, PT NOT WANTNG BIPAP. PT REFUSED CHEST PHYSIOTHERAPY TONIGHT BUT WILL ESUME TODAY. COLOSTOMY PESENTS PATENT, MINOR STOOL OUTPUT. PPN INFUSING PER EMAR. EXCORIATION TO GROIN BEING TREATED WITH FREQUENT CHANGING, ZINC OXIDE, AND MISTURE WICKING MATERIAL. PT BEING REPOSITIONED OFTEN WITH ORAL CARE IN [place]. OTHERWISE, PT RESTING THIS SHIFT. CALL LIGHT WITHIN REACH.
[2025-03-17 07:55] VITALS: BP 148/76
--- NOTE | 2025-03-17 08:25 | NUR ---
Pt is alert, oriented and pleasantly conversant. He states that he has no pain. sTates weakness, bilaterally equal. States that after his CVA he was told that his right side was weaker, but he has always felt that it is equal. At this time he is very deconditioned and very weak overall. Able to cough and bring up secretions. ORal care done this am on assessment. NPO. Vital signs are stable this morning, he is wearing 3 l/min of O2. Per report he refused CPT and BIPAP last night. I encouraged the pt to use his flutter valve and IS. Lungs sounds are fairly clear. Colostomy in place, soft brown stool noted in bag. URinary incontinence and excoration of scrotum noted, making purewick placement inappropriate. Peepee Teepee incontinence wraps in use, limiting skin exposure to moisture from urine. Right hip aquacel dressing is clean dry and intact. Pt denies pain. Lower extremities are weak but skin is intact.
--- NOTE | 2025-03-17 10:37 | NUR ---
Up to recliner chair upright with chris lift. Says that it feels good to be up. Working with Hammad Dash PT at this time.
--- NOTE | 2025-03-17 11:36 | NUR ---
Pt remains up in recliner chair at this time.
[2025-03-17 12:18] VITALS: BP 150/78
[2025-03-17] MEDS ORDERED: TPN Consult Notification XX ONE (13:05)
[2025-03-17 15:42] VITALS: BP 128/71
--- NOTE | 2025-03-17 16:09 | NUR ---
Pt transferred using chris lift from recliner to the bed. Pericare for urinary incontinence done. Pt repositioned to his left side. Noted aquacell dressing was peeling on the edges. It was removed and noted 5 intact duran over incisions which have approximated edges and are dry without any drainage, either dry or active. Pt denies any pain.
[2025-03-17] MEDS ORDERED: Parenteral Electolytes 40 ML,POTASSIUM PHOS,M-BASIC-D-BASIC 30 MMOL,Multivitamins 10 ML... IV SCH ×2 (17:00)
--- NOTE | 2025-03-17 18:02 | NUR ---
Pt had SVT twice, then rate dropped to 91, atrial fibrillation. 5 mg metoprolol IV given and pt converted to sinus rhythm.
--- NOTE | 2025-03-17 18:26 | NUR ---
Shift summary: Pt is A&O x 4. Pt has been titrated from 3L O2 at the beginning of the shift to current 2L O2. Pt reported relief with suctioning upon cough with mucus production. Pts heart rate increase to 150 intermittently, so VALERY Singh gave IV metoprolol, which brought him back into a NSR.
[2025-03-17 20:00] VITALS: BP 137/65
[2025-03-18] VITALS (7 sets, daily range): BP systolic 121–151; BP diastolic 63–73
[2025-03-18 04:36] LABS: Base Excess Venous 13.2 mmol/L; Bicarbonate Venous 35.2 mmol/L (24.0-30.0); PCO2 Venous 58.8 mmHg (38-42); pH Blood Venous 7.42 (7.34-7.37)
[2025-03-18 05:20] LABS: BASOPHILS ABSOLUTE AUTO 0.05 K/mm3 (0.00-0.23); BASOPHILS PERCENT AUTO 0 % (0-2); EOSINOPHILS ABSOLUTE AUTO 0.25 K/mm3 (0.00-0.68); EOSINOPHILS PERCENT AUTO 2 % (0-6); Hematocrit 30.4 % (37.0-53.0); Hemoglobin 8.8 g/dL (13.5-17.5); IMMATURE GRAN ABSOLUTE AUTO 0.17 K/mm3 (0.00-0.10); IMMATURE GRAN PERCENT AUTO 2 % (0-1); LYMPHOCYTES ABSOLUTE AUTO 1.04 K/mm3 (0.84-5.20); LYMPHOCYTES PERCENT AUTO 9 % (21-46); MONOCYTES ABSOLUTE AUTO 0.68 K/mm3 (0.16-1.47); MONOCYTES PERCENT AUTO 6 % (4-13); Mean Corpuscular HGB 30.2 pg (26.0-34.0); Mean Corpuscular HGB Conc 28.9 g/dL (31.5-36.5); Mean Corpuscular Volume 105 fL (80-100); Mean Platelet Volume 11.2 fL (9.1-12.4); NEUTROPHILS ABSOLUTE AUTO 8.97 K/mm3 (1.96-9.15); NEUTROPHILS PERCENT AUTO 81 % (41-73); Platelet Count 107 K/mm3 (150-400); RDW Coefficient Variation 14.9 % (11.7-14.2); RDW Standard Deviation 57.1 fL (35.1-46.3); Red Blood Cell Count 2.91 M/mm3 (4.30-5.90); White Blood Cell Count 11.16 K/mm3 (4.00-11.30)
--- NOTE | 2025-03-18 05:40 | NUR ---
SHIFT SUMMARY PT HAS BEEN ABLE TO REST COMFORTABLY THROUGHOUT SHIFT THIS EVENING AND STATES NO COMPLAINTS AT THIS TIME. PT APPEARS TO BE IN NO DISTRESS AND HAS NOT HAD ANY SIGNIFICANT EVENTS OVERNIGHT. WILL CONTINUE TO MONITOR UNTIL REPORT PASSED TO DAY SHIFT TEAM.
[2025-03-18 05:51] LABS: Albumin, Blood 2.9 g/dL (3.4-5.0); Albumin/Globulin Ratio 0.7 (0.8-1.8); Bilirubin, Total 0.5 mg/dL (0.1-1.0); Calcium, Blood 8.7 mg/dL (8.5-10.1); Creatinine, Blood 0.89 mg/dL (0.60-1.20); Globulin, Blood 4.3 g/dL (2.2-4.0); Magnesium, Blood 2.7 mg/dL (1.6-2.4); Phosphorus, Blood 4.3 mg/dL (2.5-4.9); Potassium, Blood 3.9 mmol/L (3.5-5.5); Total Protein, Blood 7.2 g/dL (6.4-8.2)
--- NOTE | 2025-03-18 10:15 | NUR ---
Pt care done to assist with voiding in urinal in bed. Pt's brothers Don and Rush are here; had a brief discussion about how Janes is doing, and plan of care as it stands today.
--- NOTE | 2025-03-18 12:45 | NUR ---
CASE CONFRENCE DISCUSSED CASE WITH PROVIDER, SPEECH THERAPY, AND PC TEAM. DISCUSSED PROGRESSION OVER THE LAST SEVERAL YEARS. PATIENT HAS SHOWN HESITATION ABOUT WANTING ANOTHER PEG. DISCUSSED HOSPICE VS SNF. PATIENT WOULD BENIFIT FROM REHABILITATION TO IMPROVE MOBILITY POST SURGERY. AFTER EXTENSIVE CONVERSATION WE AGREED THE BEST COURSE OF ACTION WHILE ALSO ALIGNING WITH PT GOALS IS TO REFRAIN FROM PEG, PLAN TO DC TO SNF. ALIYAH TO DISCUSSED THIS PLAN WITH THE PATIENT, AND HE IS AGREEABLE. SHE DISCUSSED THE RISKS OF ORAL INTAKE AND ASPIRATION. HE VERBALIZED UNDERSTANDING.
[2025-03-18] MEDS ORDERED: TPN Consult Notification XX ONE (13:40)
--- NOTE | 2025-03-18 14:00 | NUR ---
Spiritual Care Visit. Pt. is resting but responds when I enter the room. Pt. is pleasant. Facilitated an update. Pt. verbalized that his brothers had visited earlier in the day. Pt. displayed evidence about having an expectation that he might need more re-hab in his future. Consider matters of kinjal and belief. Prayed with the Pt. Pt. verbalized gratitude for the spiritual care visit and welcomed this sales expert home theater to return.
[2025-03-18] MEDS ORDERED: Parenteral Electolytes 40 ML,POTASSIUM PHOS,M-BASIC-D-BASIC 30 MMOL,Multivitamins 10 ML... IV SCH (17:00)
--- NOTE | 2025-03-18 17:04 | NUR ---
purewick placed to help the excoriation to heal.
[2025-03-19] VITALS (21 sets, daily range): BP systolic 91–137; BP diastolic 43–77
[2025-03-19 05:02] LABS: Magnesium, Blood 2.7 mg/dL (1.6-2.4)
[2025-03-19 05:23] LABS: Bun/Creatinine Ratio 37.8 (12.0-20.0); Calcium, Blood 8.5 mg/dL (8.5-10.1); Creatinine, Blood 0.93 mg/dL (0.60-1.20); Phosphorus, Blood 3.3 mg/dL (2.5-4.9); Potassium, Blood 4.3 mmol/L (3.5-5.5)
--- NOTE | 2025-03-19 06:26 | NUR ---
SHIFT SUMMARY PT HAS TOLERATED SHIFT WELL WITH NO SIGNIFICANT EVENTS OVERNIGHT. PT APPEARS TO BE RESTING COMFORTABLY IN BED AT THIS TIME. PT HAS STATED NO COMPLAINTS AT THIS TIME. LEONEL HAS WORKED WELL OVERNIGHT. WILL CONTINUE TO MONITOR UNTIL REPORT PASSED TO DAY SHIFT TEAM.
[2025-03-19] MEDS ORDERED: Ondansetron HCl 2 MG / ML 2ML Vial ONE (08:01)
[2025-03-19 08:40] LABS: Base Excess Venous 11.5 mmol/L; Bicarbonate Venous 33.4 mmol/L (24.0-30.0); PCO2 Venous 79.1 mmHg (38-42); pH Blood Venous 7.29 (7.34-7.37)
--- NOTE | 2025-03-19 11:08 | NUR ---
Case review requested and performed. Consultation services rendered. 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 Concerns have been voiced and confirmed regarding the extant non-compos mentis status of the principal, the need for proxy involvement if that remains unresolved, and the establishement of a clinically reasonable plan of care in collaboration with the substitute decision makers. The following represent lockhart outcomes of our conversation / case analysis: (1) in periods of reliable cognitive function the principal is entitled to an undulating perspective regarding his code status and POC. This comports with his dignity of personhood and exercise of autonomy. The potential exception to this would be if services were being requested or demanded that were grossly disproportionate or outside of the normal standard of care. (2) The palliative care nurse will engage the principals proxy support network, discuss a time limited trial of appropriate therapies to build aligned expectations, and if they elect to support a pathway of de-escelation (assuming the attending confirms the terminality of the principal), have the physician order for life sustaining treatments revoked to match the outcome of that discussion. Thank you for this consult. Janes Vick, PhD,DEBORA
--- NOTE | 2025-03-19 11:11 | NUR ---
Bedside shift report from VALERY Robles. Pt was sleeping, wearing 3 l/min of O2. Shallow breaths, no distress noted while lying with HOB elevated about 20 degrees. At 0730 the pt was repositioned from the supine position which we had found him in to the left side lying and immediately had hypoxia, RR 28 and mild distess, only being able to speak one word in between breaths, and requiring oxygen to be increased on high flow cannula to 8 - 10 l/min to achieve SPo2 at least 90%. His cough was initially so weak that he could barely do it. After some effort and attempt on flutter valve he was able to cough weakly, but only scant amount of white sputum suctioned out of his mouth. His bouts of hypoxia continued intermittently accompanied by SVT/afib RVR for which he was given IV metoprolol as well a some zofran as he also vomited once during a cough. Yellow fluid 100cc emesis was suctioned as RN was at the bedside with suction leandro when it occured. He is presently on the AVAP with 40% fio2 achieving tidal volumes around 430. He is lethargic but arousable. Heart rate and rhythm sinus, 88 bpm presently.
[2025-03-19] MEDS ORDERED: Insulin Regular 100 UNIT/ML 10ML Vial SC SCH (12:00)
[2025-03-19 14:15] LABS: Base Excess Venous 12.7 mmol/L; PCO2 Venous 61.4 mmHg (38-42)
--- NOTE | 2025-03-19 14:28 | NUR ---
Dr. Glaser here to see the patient; VBG results are also up. He is discussiong case with attending MD. The pt is still lethargic, arousable but much less interactive than he was yeserday. Bipap ventilations are all machine initiated; no spontaneous breaths noted. Pt's blood pressure is also trending lower than past 2 days.
[2025-03-19] MEDS ORDERED: Vancomycin HCL 1,750 MG in NS 500 ML IV ONE (14:50)
[2025-03-19] MEDS ORDERED: Azithromycin 500 MG in NS 250 ML IV ONE (15:00)
[2025-03-19] MEDS ORDERED: Ondansetron HCl 2 MG / ML 2ML Vial IV ONE (15:25)
[2025-03-19] MEDS ORDERED: Meropenem 1,000 MG in NS 100 ML IV SCH (16:00)
[2025-03-19 16:20] LABS: Hematocrit 22.2 % (37.0-53.0); Hemoglobin 6.4 g/dL (13.5-17.5); Mean Corpuscular HGB 29.8 pg (26.0-34.0); Mean Corpuscular HGB Conc 28.8 g/dL (31.5-36.5); Mean Corpuscular Volume 103 fL (80-100); Mean Platelet Volume 11.7 fL (9.1-12.4); NRBC ABSOLUTE 0.02 K/mm3 (0.00-0.02); NRBC Auto 0.2 /100 WBC (0.0-0.2); Platelet Count 96 K/mm3 (150-400); RDW Coefficient Variation 14.6 % (11.7-14.2); RDW Standard Deviation 55.1 fL (35.1-46.3); Red Blood Cell Count 2.15 M/mm3 (4.30-5.90); White Blood Cell Count 11.85 K/mm3 (4.00-11.30)
--- NOTE | 2025-03-19 16:35 | NUR ---
CASE CONFERENCE: NO CHANGES AT THIS TIME TO PT'S CURRENT PLAN OF CARE. HE HAS CONTINUED TO FREQUENTLY VASCILATE BETWEEN CHOICES, BUT HAS MAINTAINED THAT HE DOES NOT WANT A PEG TUBE FOR NOW. PT DOES HAVE 2 BROTHERS WHO WILL BE CONSULTED IF PT BECOMES UNABLE TO MAKE DECISIONS OR THE PLAN OF CARE BECOMES FUTILE, THIS CAN BE REVISITED. DR. DUNCAN IN STRONG AGREEMENT. [facility]N WILL CONTINUE TO CONSULT WITH ETHICS NEEDED AND CONTINUE TO SUPPPORT THE PATIENT, FAMILY AND NURSING STAFF.
[2025-03-19 17:13] LABS: BASOPHILS PERCENT MAN 0 % (0-2); EOSINOPHILS ABSOLUTE MAN 0.11 K/mm3 (0.00-0.68); EOSINOPHILS PERCENT MAN 1 % (0-6); LYMPHOCYTES % ATYPICAL MANUAL 2 % (0-0); LYMPHOCYTES PERCENT MAN 9 % (21-46); MONOCYTES ABSOLUTE MAN 0.47 K/mm3 (0.16-1.47); MONOCYTES PERCENT MAN 4 % (4-13); NEUTROPHILS ABSOLUTE MAN 9.95 K/mm3 (1.96-9.15); SEG NEUTROPHILS PERCENT MAN 84 % (41-73); TOTAL CELLS COUNTED 100
[2025-03-19] MEDS ORDERED: Pantoprazole Sodium 40 MG Injection IV SCH (17:30)
--- NOTE | 2025-03-19 18:17 | NUR ---
PT BACK FROM CT AND MORE AWAKE NOW. HE IS TALKING AND SAYING HE NEEDS TO USE THE RESTROOM. HE'S ALSO OPENING HIS EYES SPONTANEOUSLY. HIS HGB CAME BACK <7, BLOOD CONSENT WAS OBTAINED TO TRANSFUSE PRBC'S. HE IS STILL ON AVAP W/40% FIO2. BED IN LOW POSITION AND CALL LIGHT IN REACH.
[2025-03-19 18:36] LABS: Source, Urine Clean Catch
[2025-03-19 18:45] LABS: Appearance, Urine Hazy (Clear); Bilirubin, Urine Neg (Neg); Blood, Urine 5+ (Neg); Color, Urine Yellow (P-Yellow); Glucose Qualitative, Urine Neg (Neg); Ketones, Urine Neg (Neg); Leukocyte Esterase, Urine 2+ (Neg); Nitrite, Urine Neg (Neg); Protein, Urine 2+ (Neg); Specific Gravity, Urine 1.015 (1.003-1.022); Urobilinogen, Urine NORM (Normal)
[2025-03-19 19:13] LABS: Amorphous Mod (0-Heavy); Bacteria Many /hpf; Mucus Light (0-Heavy); Squamous Epithelial Cells Few /hpf (Few)
--- NOTE | 2025-03-19 20:26 | NUR ---
CARE ASSUMPTION: ALERT AND ORIENTED X 4. SOFT SPEECH. BP STABLE WITH MAP>65. CURRENLY ON BIPAP AVAP FIO2 40%. BLOOD PRODUCT INITIATED AND IS CURRENLY INFUSING WITH NO ADVERSE EFFECTS FOR HGB OF 6.4. CHEST XRAY ORDERED BY DR DUNCAN. PATIENT TRANSFERED TO ICU PER PROVIDERS DUE TO CT RESULTS. REPORT CALLED TO FELIX RASMUSSEN.
[2025-03-19] MEDS ORDERED: Lactated Ringer's 1,000 ML IV SCH (20:30)
--- NOTE | 2025-03-19 20:44 | NUR ---
PATIENT UPDATE THIS RN AND QUINTON RASMUSSEN ASSUMED CARE OF PATIENT AT 1900. BEDSIDE REPORT TAKEN FROM BETH/SHAYY RASMUSSEN. PT EASILY AWOKEN WITH VERBAL STIMULI BUT APPEARS LETHARGIC AT SHIFT CHANGE. 1 UNIT PRBC'S SENT FROM LAB AT SHIFT CHANGE. STARTED TRANSFUSION FOR HGB <7 PER ORDER. MD DUNCAN CALLED REGARDING CT RESULTS. STAT EKG DONE PER MD ORDER. MD DUNCAN NOTIFIED OF EKG RESULT. MD DUNCAN CALLED UNIT REGARDING HIS CONVERSATION WITH MD DE JESUS ABOUT PERICARDIAL EFFUSION. EXPERT MEDICAL WRITER WITH CONCERN REGARDING STABILITY OF EFFUSION AND WANTING TO DO PERICARDIOCENTESIS. MD DUNCAN WITH ORDER TO PUT PT IN ICU. NOTIFIED ICU OBSTETRIC ASSISTANT AND NURSING LITHOGRAPHY CONTACT WORKER. QUINTON RASMUSSEN GAVE REPORT VIA PHONE TO FELIX RASMUSSEN IN ICU. PT DEPENDENT ON BIPAP AND TRANSFERRED WITH RT TO ICU. PT VERBALIZED UNDERSTANDING NEED TO TRANSFER WHEN THIS RN EXPLAINED PLAN OF CARE.
--- NOTE | 2025-03-19 22:11 | NUR ---
PT ARRIVED TO ICU 07 FROM PCU 15 AT APPX 2020. PT IS ON BIPAP W/1 UNIT OF PRBC INFUSING. HE IS ALERT AND ORIENTED X3. HR IS IN THE 80S ON THE CARDIAC MONTIOR. BP WNL. OXYGEN SAT >90% W/NO ACUTE RESP DISTRESS NOTED. PT HAS A MALE PUREWICK IN PLACE. MEPILEX ON BUTTOCK W/REDDNESS NO BREAKDOWN. I CONTACTED DR ZAMORA TO LET HIM KNOW PT WAS HERE AND DISUSS HIS PLAN OF CARE. HE STATED THAT HE WANTS INCREASED MONITORING AND TO NOTIFIY HIM IF PT DECOMPENSATES. PT IS AFEBRILE.
[2025-03-19 22:56] LABS: BASOPHILS ABSOLUTE AUTO 0.03 K/mm3 (0.00-0.23); BASOPHILS PERCENT AUTO 0 % (0-2); EOSINOPHILS ABSOLUTE AUTO 0.09 K/mm3 (0.00-0.68); EOSINOPHILS PERCENT AUTO 1 % (0-6); Hematocrit 27.1 % (37.0-53.0); IMMATURE GRAN ABSOLUTE AUTO 0.25 K/mm3 (0.00-0.10); IMMATURE GRAN PERCENT AUTO 2 % (0-1); LYMPHOCYTES ABSOLUTE AUTO 0.87 K/mm3 (0.84-5.20); LYMPHOCYTES PERCENT AUTO 8 % (21-46); MONOCYTES ABSOLUTE AUTO 0.69 K/mm3 (0.16-1.47); MONOCYTES PERCENT AUTO 6 % (4-13); Mean Corpuscular HGB 29.9 pg (26.0-34.0); Mean Corpuscular HGB Conc 29.5 g/dL (31.5-36.5); Mean Corpuscular Volume 101 fL (80-100); Mean Platelet Volume 11.6 fL (9.1-12.4); NEUTROPHILS ABSOLUTE AUTO 9.46 K/mm3 (1.96-9.15); NEUTROPHILS PERCENT AUTO 83 % (41-73); Platelet Count 87 K/mm3 (150-400); RDW Coefficient Variation 14.9 % (11.7-14.2); RDW Standard Deviation 55.2 fL (35.1-46.3); Red Blood Cell Count 2.68 M/mm3 (4.30-5.90); White Blood Cell Count 11.39 K/mm3 (4.00-11.30)
[2025-03-20] VITALS (33 sets, daily range): BP systolic 88–135; BP diastolic 51–95
[2025-03-20 05:53] LABS: BASOPHILS ABSOLUTE AUTO 0.04 K/mm3 (0.00-0.23); BASOPHILS PERCENT AUTO 0 % (0-2); EOSINOPHILS ABSOLUTE AUTO 0.08 K/mm3 (0.00-0.68); EOSINOPHILS PERCENT AUTO 1 % (0-6); Hematocrit 25.6 % (37.0-53.0); Hemoglobin 7.7 g/dL (13.5-17.5); IMMATURE GRAN ABSOLUTE AUTO 0.25 K/mm3 (0.00-0.10); IMMATURE GRAN PERCENT AUTO 2 % (0-1); LYMPHOCYTES ABSOLUTE AUTO 0.84 K/mm3 (0.84-5.20); LYMPHOCYTES PERCENT AUTO 7 % (21-46); MONOCYTES ABSOLUTE AUTO 0.89 K/mm3 (0.16-1.47); MONOCYTES PERCENT AUTO 8 % (4-13); Mean Corpuscular HGB 30.2 pg (26.0-34.0); Mean Corpuscular HGB Conc 30.1 g/dL (31.5-36.5); Mean Corpuscular Volume 100 fL (80-100); Mean Platelet Volume 11.8 fL (9.1-12.4); NEUTROPHILS ABSOLUTE AUTO 9.66 K/mm3 (1.96-9.15); NEUTROPHILS PERCENT AUTO 82 % (41-73); Platelet Count 88 K/mm3 (150-400); RDW Coefficient Variation 15.3 % (11.7-14.2); RDW Standard Deviation 55.6 fL (35.1-46.3); Red Blood Cell Count 2.55 M/mm3 (4.30-5.90); White Blood Cell Count 11.76 K/mm3 (4.00-11.30)
[2025-03-20 06:13] LABS: Albumin, Blood 2.5 g/dL (3.4-5.0); Albumin/Globulin Ratio 0.7 (0.8-1.8); Bilirubin, Total 0.4 mg/dL (0.1-1.0); Bun/Creatinine Ratio 40.4 (12.0-20.0); Calcium, Blood 8.1 mg/dL (8.5-10.1); Creatinine, Blood 1.09 mg/dL (0.60-1.20); Globulin, Blood 3.5 g/dL (2.2-4.0); Potassium, Blood 4.3 mmol/L (3.5-5.5)
--- NOTE | 2025-03-20 06:29 | NUR ---
SHIFT SUMMERY PT HAS REMAINED ON BIPAP SINCE ARRIVAL TO ICU. HE DESATURATED QUICKLY WHEN MASK WAS READJUSTED FOR COMFORT BY RT. HIS OXYGEN SAT OTHERWISE HAVE BEEN >92%. PPN IS INFUSING PER ORDER. PT HAS A PUREWICK CATH THAT IS WORKING APPROPRIATLY. HIS H&H REMAINS STABLE AFTER I UNIT OF PRBC EARLIER IN THE SHIFT. HE HAS BEEN SR ON THE SECURITY SERVICES MANAGER. BP WNL. HE HAS HAD NO ACUTE DISTRESS THIS SHIFT.
[2025-03-20] MEDS ORDERED: Vancomycin HCL 1,250 MG in NS 250 ML IV SCH (09:00)
--- NOTE | 2025-03-20 09:02 | NUR ---
AM NOTE... ASSUMED CARE OF PATIENT AT APPROX 0700. PATIENT ALERT, BUT LETHARGIC. SINUS RHYTHM IN THE 80'S-90'S, BP STABLE WITH MAPS >65. PATIENT ON AVAPs Vt 560ML AND 40% FiO2, SATS >92%, L/S CLEAR IN UPPER LOBES, AND RLL, BUT ABSENT LLL. PPN INFUSING PER ORDER. COLOSTOMY TO LLQ, PATENT WITH SCANT BROWN DRAINAGE NOTED. PUREWICK IN PLACE DRAINING YELLOW URINE TO SUCTION CANISTER. 4 CHIKA NOTED ON RIGHT UPPER THIGH, INCISIONS APPEAR TO BE FULLY CLOSED AT THIS TIME. 0850 PATIENT TAKEN OFF AVAPs AND TITRATED TO 4L O2 VIA NC WITH SATS >92%. AT 0905 PATIENT TITRATED TO 2L 02 VIA NC WITH SATS >90%.
[2025-03-20 10:34] LABS: Hematocrit 27.4 % (37.0-53.0); Hemoglobin 8.3 g/dL (13.5-17.5); Mean Corpuscular HGB 30.3 pg (26.0-34.0); Mean Corpuscular HGB Conc 30.3 g/dL (31.5-36.5); Mean Corpuscular Volume 100 fL (80-100); Mean Platelet Volume 11.6 fL (9.1-12.4); Platelet Count 97 K/mm3 (150-400); RDW Coefficient Variation 15.2 % (11.7-14.2); RDW Standard Deviation 55.5 fL (35.1-46.3); Red Blood Cell Count 2.74 M/mm3 (4.30-5.90); White Blood Cell Count 13.09 K/mm3 (4.00-11.30)
[2025-03-20] MEDS ORDERED: Miconazole Nitrate 2% 85 GM PWD TOP PRN (11:00)
[2025-03-20] MEDS ORDERED: Azithromycin 500 MG in NS 250 ML IV SCH (12:00)
--- NOTE | 2025-03-20 12:22 | NUR ---
MET WITH PT AT BEDSIDE THIS MORNING WITH DR. EDWARDS. THE PT REMAINS ALERT, ORIENTED. WE DISCUSSED PT'S DESIRE TO EAT COUPLED WITH ST RECOMMENDATIONS FOR NPO. HE V/U REGARDING THE RISK OF ORAL INTAKE, AND IS WILLING TO CHANGE CODE STATUS TO DNR. HE IS ALSO WILLING TO SIGN A WAIVER ACKNOWLEDGING THE RISK VS BENEFITS. PT'S BROTHERS CAME TO VISIT TODAY, THEY ALSO V/U REGARDING PT'S CHOICES AND ARE ALSO AGREEABLE TO RESPECT HIS WISHES.
[2025-03-20 12:54] LABS: Acinetobacter baumannii DNA Not Detected copy/mL (NOT DETECT); Adenovirus DNA Not Detected (NOT DETECT); Chlamydia pneumonia Not Detected (NOT DETECT); Enterobacter cloacae DNA Not Detected copy/mL (NOT DETECT); Escherichia coli DNA Not Detected copy/mL (NOT DETECT); Haemophilus influenzae DNA Not Detected copy/mL (NOT DETECT); Human Coronavirus RNA Not Detected (NOT DETECT); Human Metapneumovirus RNA Not Detected (NOT DETECT); Influenza virus A RNA Not Detected (NOT DETECT); Influenza virus B RNA Not Detected (NOT DETECT); Klebsiella aerogenes DNA Not Detected copy/mL (NOT DETECT); Klebsiella oxytoca DNA Not Detected copy/mL (NOT DETECT); Klebsiella pneumoniae DNA Not Detected copy/mL (NOT DETECT); Legionella pneumophila Not Detected (NOT DETECT); Moraxella catarrhalis DNA Not Detected copy/mL (NOT DETECT); Mycoplasma pneumoniae Not Detected (NOT DETECT); Parainfluenza virus RNA Not Detected (NOT DETECT); Proteus sp DNA Not Detected copy/mL (NOT DETECT); Pseudomonas aeruginosa DNA Not Detected copy/mL (NOT DETECT); Respiratory syncytial Vir RNA Not Detected (NOT DETECT); Rhinovirus+Enterovirus RNA Not Detected (NOT DETECT); Serratia marcescens DNA Not Detected copy/mL (NOT DETECT); Staphylococcus aureus DNA Not Detected copy/mL (NOT DETECT); Streptococcus agalactiae DNA Not Detected copy/mL (NOT DETECT); Streptococcus pneumoniae DNA Not Detected copy/mL (NOT DETECT); Streptococcus pyogenes DNA Not Detected copy/mL (NOT DETECT)
--- NOTE | 2025-03-20 13:09 | NUR ---
PT TRANSFER TO PCU... REPORT WAS GIVEN TO INSPECTOR PRINTED CIRCUIT BOARDS BY STUDENT NURSE ANDERSON WITH THIS RN. PT'S VS STABLE AT THE TIME OF TRANSFER. ALL OF THE PT'S BELONGINGS WERE PACKED AND SENT WITH THE PT.
[2025-03-20] MEDS ORDERED: TPN Consult Notification XX ONE (13:20)
--- NOTE | 2025-03-20 13:49 | NUR ---
PT TRANSFERED TO PCU 12 AND WILL BE TRANSFERING TO PCU 10 FOR THE LIFT ONCE IT IS CLEAN. REPORT RECIEVED FROM KENZIE RASMUSSEN AND HER STUDENT LUCIEN. THE PT CAME OVER VIA RECLINER ON 4.5L NC W/ SP02 >93% AND HE DENIES ANY SOB. HIS LUNG SOUNDS ARE VERY DIMINISHED IN MIDDLE AND LOWER LOBES. CLEAR IN UPPER. WEAK NONPRODUCTIVE COUGH NOTED. ON TELE THE PT IS IS SR 80'S. BP STABLE AT 107/77 (87). THE PT DENIES ANY ANGINA OR CHEST PRESSURE. HIS MALE PURWICK WAS SET UP TO SUCTION. LLQ COLOSTOMY NOTED WITH DARK BROWN LOOSE OUTPUT. PT A&OX3-4, AND PUPILS 3MM BRISK REACTION. HE REMAINS IN THE RECLINER WATCHING TV AT THIS TIME. CALL LIGHT IN REACH. PCU 10 IS BEING CLEANED AT THIS TIME FOR THE PT TO TRANSFER INTO. SEE NOTES FOR UPDATES.
[2025-03-20] MEDS ORDERED: CefTRIAXone Sodium 1,000 MG in NS 100 ML IV SCH (16:00)
[2025-03-20] MEDS ORDERED: Insulin Regular 100 UNIT/ML 10ML Vial SC SCH (16:30)
[2025-03-20 16:43] LABS: Hematocrit 28.3 % (37.0-53.0); Hemoglobin 8.6 g/dL (13.5-17.5); Mean Corpuscular HGB 30.4 pg (26.0-34.0); Mean Corpuscular HGB Conc 30.4 g/dL (31.5-36.5); Mean Corpuscular Volume 100 fL (80-100); Mean Platelet Volume 12.1 fL (9.1-12.4); Platelet Count 114 K/mm3 (150-400); RDW Coefficient Variation 15.1 % (11.7-14.2); RDW Standard Deviation 55.7 fL (35.1-46.3); Red Blood Cell Count 2.83 M/mm3 (4.30-5.90); White Blood Cell Count 14.73 K/mm3 (4.00-11.30)
--- NOTE | 2025-03-20 16:53 | NUR ---
PT'S CONSENT FOR EATING AGAINST NPO IN CHART. POLST IN CHART. POLST SENT TO REGISTRY AND MEDICAL RECORDS. PT APPEARS TO BE RESTING COMFORTABLY IN BED AT THIS TIME. BEDSIDE RN AND PCU OUTREACH EDUCATOR UPDATED.
[2025-03-20] MEDS ORDERED: Parenteral Electolytes 40 ML,POTASSIUM PHOS,M-BASIC-D-BASIC 30 MMOL,Multivitamins 10 ML... IV SCH (17:00)
[2025-03-20] MEDS ORDERED: Metoprolol Succinate 25 MG TABCR PO ONE (17:30)
--- NOTE | 2025-03-20 17:32 | NUR ---
THIS RN CALLED DR. DUNCAN BECAUSE THE PT KEEPS HAVING RUNS OF SVT 140'S-150'S. HE ORDERED OT DOSE OF 25MG METOPROLOL SUCC. SEE NOTES FOR UPDATES.
--- NOTE | 2025-03-20 18:02 | NUR ---
END OF SHIFT SUMMARY REPORT A&OX3, PUPILS ARE PERRLA, MOTOR FUNCTION IS IMPAIRED. PT IS AROUSABLE WITH SPEECH. PT SPEAKS SOFTLY AND SLOWLY. BLOOD PRESSURES ARE STABLE, HEART RATE IS SR-ST W/BBB 90'S TO 120'S AND RUNS OF SVT 140'S. EDEMA OF BLE. O2 IS MAINTAINED AT >95% ON 4.5L O2 VIA NC. UPPER LUNG SOUNDS ARE CLEAR, MIDDLE AND LOWER LOBES ARE DIMINISHED. PT IS RA AT BASELINE. PT IS HIGH ASPIRATION RISK, ETHICS, PALLIATIVE WAS CONSULTED. PT SIGNED A CONSENT SO HE CAN EAT DESPITE MEDICAL RECOMMENDATIONS. TPN CONTINUES TO INFUSE PER EMAR. THIS STUDENT NURSE WITH PRIMARY NURSE JUSTO RN TRIALED METOPROLOL PO IN APPLE SAUCE. PT REPORTED HE WAS UNABLE TO SWALLOW. HELD MEDICAITON, PROVIDER NOTIFIED. PT HAD CBG SCHEDUELD Q6 HOURS. MALE PURWICK IN PLACED ATTACHED TO SUCTION. PT HAS AN OSTOMY THAT IS PRODUCING BROWN LOOSE STOOL. PT HAS REDNESS OF BILATERAL HEELS WITH MEPILEX IN PLACE, REDNESS OF SCROTUM. PTS COCCYX IS RED AND NONBLANCHING. EXCORIATION OF GROIN. SCATTERED BRUISING IN VARIOUSE STAGES OF HEALING. ABRASION OF RT KNEE AND LT SILVA OPEN TO AIR. BED IS IN LOWEST POSITION, CALL LIGHT IN REACH. SEE NOTES FOR UPDATES.
--- NOTE | 2025-03-20 18:52 | NUR ---
THIS RN WENT OT THE PT'S ROOM D/T MONITOR ALARM. WHEN WALKING IN THE ROOM THIS RN SAW THE PT W/ HIS NASAL CANNULA OUT OF HIS NOSE, SP02 79% ON THE MONITOR. THIS RN PLACED THE CANNULA BACK IN THE PT'S NOSE AND EXPLAINED THAT HE NEEDS TO LEAVE THE CANNULA IN HIS NOSE. HE REPLIED "I TOOK IT OUT TO MAKE SURE NOBODY WAS SLEEPING". THIS RN HAD THE PT DEEP BREATH FOR ABOUT A MINUTE TO BRING HIS OXYGEN BACK ABOVE 90% ON 4.5L NC. THIS RN THEN PROCEEDED TO TELL THE PT THAT IT IS INAPPROPRAITE TO PURPOSELY PULL OUT HIS OXYGEN TO GET STAFF IN HIS ROOM. THIS RN EXPLAINED THAT HE IS CAUSING HYPOXIA WHICH CAN LEAD TO DAMAGE TO HIS ORAGANS. HE WAS THEN REEDUCATED ON HOW TO USE OF A CALL LIGHT AND TO USE THE RED BUTTON TO GET STAFF IN HIS ROOM. SEE NOTES FOR UPDATES.
--- NOTE | 2025-03-20 20:02 | NUR ---
ASSUMPTION OF CARE ASSUMED PT'S CARE AT 1900,BEDSIDE REPORT COMPLETED.PT WIDE AWAKE WATCHING TV.PLAN OF CARE REVIEWED.PT SLOW TO RESPOND TO QUESTIONS ASKED,VOICE VERY SOFT.PT DENIES PAIN,DENIES SOB,DENIES CHEST PAIN/PRESSURE.CALL LIGHT AND PT'S ITEMS WITHIN REACH.SAFETY MEASURE IN PLACE.ASSESSMENT ONGOING PER CARE PLAN.
[2025-03-20] MEDS ORDERED: Vancomycin HCL 1,000 MG in NS 250 ML IV SCH (21:00)
[2025-03-20 22:51] LABS: Hemoglobin 8.6 g/dL (13.5-17.5); Mean Corpuscular HGB 30.1 pg (26.0-34.0); Mean Corpuscular HGB Conc 29.7 g/dL (31.5-36.5); Mean Corpuscular Volume 101 fL (80-100); Mean Platelet Volume 11.8 fL (9.1-12.4); Platelet Count 117 K/mm3 (150-400); RDW Coefficient Variation 14.9 % (11.7-14.2); RDW Standard Deviation 55.5 fL (35.1-46.3); Red Blood Cell Count 2.86 M/mm3 (4.30-5.90); White Blood Cell Count 14.96 K/mm3 (4.00-11.30)
[2025-03-21 02:45] VITALS: BP 141/91
[2025-03-21 03:44] VITALS: BP 147/94
[2025-03-21 04:25] LABS: Hematocrit 31.3 % (37.0-53.0); Hemoglobin 9.1 g/dL (13.5-17.5); Mean Corpuscular HGB 29.9 pg (26.0-34.0); Mean Corpuscular HGB Conc 29.1 g/dL (31.5-36.5); Mean Corpuscular Volume 103 fL (80-100); Mean Platelet Volume 11.6 fL (9.1-12.4); NRBC ABSOLUTE 0.02 K/mm3 (0.00-0.02); NRBC Auto 0.1 /100 WBC (0.0-0.2); Platelet Count 153 K/mm3 (150-400); RDW Coefficient Variation 14.9 % (11.7-14.2); RDW Standard Deviation 56.2 fL (35.1-46.3); Red Blood Cell Count 3.04 M/mm3 (4.30-5.90); White Blood Cell Count 18.94 K/mm3 (4.00-11.30)
[2025-03-21 04:46] LABS: Albumin, Blood 2.8 g/dL (3.4-5.0); Anion Gap 5 mmol/L (3-11); Blood Urea Nitrogen 48 mg/dL (8-24); Bun/Creatinine Ratio 38.4 (12.0-20.0); CO2, Blood 35 mmol/L (21-32); Calcium, Blood 8.5 mg/dL (8.5-10.1); Chloride, Blood 106 mmol/L (98-108); Creatinine, Blood 1.25 mg/dL (0.60-1.20); Glomerular Filtration Rate 62 (60-); Glucose, Blood 326 mg/dL (70-99); Phosphorus, Blood 4.9 mg/dL (2.5-4.9); Potassium, Blood 5.5 mmol/L (3.5-5.5); Sodium, Blood 140 mmol/L (136-145)
--- NOTE | 2025-03-21 06:25 | NUR ---
PT'S CONDITION DECLINED PROGRESSIVELY THROUGHOUT THE SHIFT.ATTEMPTED TO GIVE PT ORAL MED AT HS WITH APPLESAUCE BUT PT WAS NOT ABLE TO SWALLOW.THE MEDICINE AND APPLESAUCE SUCTION.NOTED THAT PT DOES NOT HAVE GAG REFLEX,POOR/VERY WEAK COUGH.AT 0112 PT'S HR SUSTAINED AT >110 ,PRN METOPROLOL 5MG IV GIVEN WHICH SLOWED THE HR TO THE 90'S.AT 0446 ANOTHER DOSE OF PRN METOPROLOL 5MG IV GIVEN FOR HR SUSTAINED AT >120-154. AUTHORIZED AN EARLY DOSE OF METOPROLOL.NOTIFIED VIA PHONE. PT NOT ABLE TO MANAGE ORAL SECRETIONS,SALIVA DRIPPING OUT OF HIS MOUTH.AT 0300 PT'S OXYGEN SATURATION DROPPED DOWN TO 80% ON 4L,OXYGEN FLOW RATE INCREASED TO 6L VIA NASAL CANNULA BUT OXYGEN SATURATION DD NOT IMPROVE.RT NOTIFIED.RT PERFORMED NASOPHARNYGEAL SUCTIONING WHICH IMPROVED OXYGEN SATURATION BRIEFLY.PT THEN SWITCHED TO 15L VIA OXIMASK.OXYGEN SATURATION IMPROVED TO >92%.THIS MORNING OXYGEN SATURATION DROPPED DOWN TO 83% ON THE OXIMASK.RT PERFORMED NASOPHARYNGEAL SUCTIONING,PT SWITCHED TO NONREBREATHER MASK WITH OXYGEN AT 15L.PT MAINTAINING OXYGEN SATURATION >92%.PT LETHARGIC BUT AROUSABLE TO VOICE.DENIES PAIN,DENIES NEEDS.CALL LIGHT AND PT'S ITEMS WITHIN REACH.
[2025-03-21 07:14] VITALS: BP 156/88
--- NOTE | 2025-03-21 08:06 | NUR ---
THIS RN CALLED DR. VILLAR ABOUT THE PT D/T COMPLAINTS OF SOB, NO GAG REFLEX, INCREASED WBC, INCREASED OXYGEN DEMAND, AND CHANGES WITH THE PT'S SPEECH. THIS RN ASKED ABOUT REPEATING A CHEST XRAY. DR. VILLAR STATED SHE WAS GOING TO LOOK INTO THIS PT AND WANTED THIS RN TO CONTACT PALLIATIVE CARE TO REEVALUATE PLAN OF CARE WITH THE PT SINCE HE IS DECLINING IN CARE. THIS RN CALLED PALLIATIVE AND LEFT A MESSAGE TO GET A HOLD OF THIS NURSE. SEE NOTES FOR UPDATES.
[2025-03-21 11:07] VITALS: BP 133/83
[2025-03-21] MEDS ORDERED: TPN Consult Notification XX ONE (11:20)
[2025-03-21] MEDS ORDERED: Insulin Human Regular 100 UNIT/ML 10ML Vial SC ONE (11:45)
[2025-03-21] MEDS ORDERED: Insulin Regular 100 UNIT/ML 10ML Vial SC SCH (12:00)
[2025-03-21] MEDS ORDERED: Piperacillin/Tazobactam Sod 3.375 GM in NS 100 ML IV ONE (12:30)
[2025-03-21] MEDS ORDERED: Scopolamine Hydrobromide Patch TOP STA (12:38)
[2025-03-21] MEDS ORDERED: FentaNYL Citrate 50 MCG/ML 2 ML Injection IV PRN (12:50)
[2025-03-21] MEDS ORDERED: Scopolamine Hydrobromide Patch TOP PRN (13:00)
[2025-03-21] MEDS ORDERED: Atropine Sulfate 1% Opth Soln 2ML BTL SL PRN (14:55)
[2025-03-21] MEDS ORDERED: LORazepam 1 MG Tab PO PRN (14:55)
[2025-03-21] MEDS ORDERED: Morphine Sulfate 20 MG/1ML 1 ML Oral Syringe SL PRN (14:55)
[2025-03-21] MEDS ORDERED: Acetaminophen 650 MG Supp PR PRN (14:55)
--- NOTE | 2025-03-21 14:55 | NUR ---
MORNING SHIFT REPORT AT START OF SHIFT PT WAS DROWSY, RESPONSIVE TO VERBAL STIMULI. ORIENTED TO CURRENT SITUATION AND SELF. SPEECH WAS SLOW, SOFT, AND INTERRUPTED 1-2 WORDS DUE TO SOB PATIENT. ABOUT 1130 THE PT BECAME INCREASINGLY SOMNOLENT AND NO LONGER RESPONDING VERBALLY. PT IS NO LONGER AROUSABLE BY VERBAL STIMULATION. PATIENTS BLOOD PESSURE IS STABLE. PATIENT IS SR-ST W/BBB 80'S TO 130'S AND RUNS OF SVT. PT DENIED CHEST PAIN OR PRESSURE.. AT START OF SHIFT PATIENT WAS ON A NONREBREATHER MASK WITH 15L SUPPLEMENTAL OXYGEN AND SATING AT 100%. PATIENT WAS PLACED ON AN OXYMASK AND TITRATED DOWN TO 11L O2 AND MAINTAINED O2 >93%. ABOUT 1130 PT DESATED TO 83%, RT WAS CALLED FOR DEEP SUCTIONING AND PT WAS PLACED BACK ON NONREBREATHER MASK. SPUTUM REMOVED FROM DEEP SUCTIONING WAS PURULENT THICK AND DE OLIVEIRA. DIESEL MECHANIC CONSTRUCTION TO BEDSIDE ORDERED CHEST XRAY AND PALLIATIVE CARE CONTACTED. FREQUENT ORAL SUCTION NEEDED D/T CONTINOUS DROLLING. PALLIATIVE CARE CONTACTED FAMILY AND WANTED THE PATIENT ON COMFORT CARE. FAMILY AT BEDSIDE NOW. FERNY AT BEDSIDE. COMFORT CARE MEASURES STARTED.
--- NOTE | 2025-03-21 16:00 | NUR ---
PALLIATIVE CARE CONSULT/VISIT: RECEIVED CALL FROM TEA BAG MACHINE TENDER/DR. VILLAR THIS MORNING STATING PT WAS OBTUNDED THIS MORNING, ON HIGHFLOW OXYGEN AND UNABLE TO RESPOND TO QUESTIONS. REVIEWED MEDICAL RECORD, VITAL SIGNS, LABS. ON ASSESSMENT PT IN BED, ON NON REBREATHER. SATS 95% AND HAS BEEN TACHYCARDIC THROUGH THE NIGHT. PT WAS GIVEN MEDICATIONS WITH APPLESAUCE AND UNABLE TO SWALLOW THEM LAST NIGHT. NOTED IN NURSING NOTE PT DID NOT HAVE A GAG REFLEX. ATTEMPTED SEVERAL TIMES TO GET PT TO RESPOND TO QUESTIONS. HE WOULD OPEN HIS EYES TO VERBAL STIMULI BUT WOULD NOT RESPOND TO QUESTION AND IMMEDIATELY CLOSE HIS EYES. DR. EDWARDS KNOCKDOWN WORKER ALSO REVIEWED PT AND HAD CHEST X-RAY COMPLETED. DR. EDWARDS RECOMMENDING TRACH, PEG TUBE. PT HAS BEEN ADAMENTLY REFUSING THESE OPTIONS THIS ADMISSION. DECISION WAS MADE TO CALL HIS TWO BROTHERS AND DISCUSS COMFORT CARE. CALL PLACED AT 1045 AND 1200. LEFT MESSAGE WITH YOMAIRA. 1300 CALL PLACED AGAIN AND WAS ABLE TO REACH YOMAIRA. REQUESTED HE AND HIS BROTHER DALIA COME TO HOSPITAL DUE TO BROTHER'S DECLINE. ONCE THEY ARRIVED DISCUSSED IN DETAIL AND EDUCATED DALIA AND YOMAIRA ON WHAT COMFORT MEASURES WERE. DISCUSSED PT WOULD NEED TRACH AND PEG TUBE IF THEY WERE TO PURSUE TREATMENT PER DR. EDWARDS'S ASSESSMENT. DALIA AND YOMAIRA ELECTED TO PLACE MIKEL ON COMFORT MEASURES. DR. VILLAR IN AGREEMENT WITH COMFORT MEASURES. BEDSIDE RN CALLED ASH PIT WORKER FOR RN PICU REAL ESTATE LOAN PROCESSOR. COMFORT MEASURES AND MEDICATIONS PLACED. ALL ORAL PILLS DISCONTINUED DUE TO PT NO LONGER HAVING GAG REFLEX. PT IS OBTUNDED. PT HAS S/S OF TRANSITIONING TO ACTIVE DYING EVIDENT BY SHALLOW BREATHING, LARGE AMOUNTS OF SECRETIONS REQUIRING FREQUENT ORAL SUCTIONING, PT IS ESSENTIALLY NON RESPONSIVE. DISCONTINUED ABX, PPN. BEDSIDE RN REPORTED PT HAVING TOO MUCH SECRETIONS AND WORRIED ROXANOL WILL NOT BE ABSORBED EFFECTIVELY. PLACED ORDER FOR IV MORPHINE 1 MG Q4PRN.
[2025-03-21] MEDS ORDERED: Morphine Sulfate 4 MG/1 ML Injection IV PRN (16:15)
--- NOTE | 2025-03-21 16:26 | NUR ---
THE PT'S BROTHERS CAME TO VISIT HIM AND WERE UPDATED ON CARE. THEY STAY'D FOR LITTLE OVER AN HOUR AND HAD A VISIT FROM [facility] IN SPIRITUAL CARE. DURING THE VISIT THE PT'S BROTHER DECIDED THAT THEY WOULD LIKE HIM TO GO TO [facility] WHEN HE PASSES. FAMILY LEFT FOR THE NIGHT. FOUNDRY SUPERINTENDANT KYLE IS CURRENTLY IN THE ROOM READING TO THE PT HE RESTS. SEE NOTES FOR UPDATES.
--- NOTE | 2025-03-21 16:33 | NUR ---
"Spiritual Care Call Back | Comfort Care. Pt. is on comfort care and is mostly not responsive. Brothers are present. Brothers have been supportive, but display evidence of simple understanding. After intitial comfort meds are given scripture is read, prayers are made. This pre parole counseling aide lingered for awhile and the brothers chose [facility] as the home. The Pt. continues to linger. A final blessing is given for both the P.t and the brothers. Notified Charge, Attending, and Nurse Cad Technician of the home choice. The brothers seem to decide to depart after I prayed for them."
[2025-03-21] MEDS ORDERED: Parenteral Electolytes 40 ML,Multivitamins 10 ML,ZINC SULF/CUSO4 P-HYD/MN/CR/SE 1 ML in... IV SCH (17:00)
--- NOTE | 2025-03-21 17:42 | NUR ---
T.O.D 1725 THE PT DID PASS PEACEFULLY WITH MARIBEL RN, THIS RN, AND KYLE STUDENT RN IN THE ROOM DURING THE LAST FEW MINUTES OF HIS LIFE. NURSING SUPRIVISOR NOTIFIED, PALLIATIVE CARE NOTIFIED, DONOR LINE CALLED BY BUILDING ASSOCIATE. THIS RN HAS TRIED CALLING THE PT'S BROTHERS DALIA AT [phone] AND YOMAIRA [phone]. NEITHER BROTHER ANSWERED THE PHONE AND THIS RN WAS UNABLE TO LEAVE VOICEMAILS. SEE NOTES FOR UPDATES.
[2025-03-21] MEDS ORDERED: Piperacillin/Tazobactam Sod 3.375 GM in NS 100 ML IV SCH (18:00)
--- NOTE | 2025-03-21 18:36 | NUR ---
THIS RN ATTEMPTED TO CONTACT THE PT'S BROTHERS AGAIN, AND WAS NOT ABLE TO GET AHOLD OF THEM. SYRUP BLENDER VALET ATTENDANT MADE AWARE AND GIVEN THE FAMILY MEMBERS NUMBERS. POST MORTEM CARE COMPLETED, ICE OVER THE PT'S EYES. STILL AWAITING DONOR LINE TO SEE IF THE PT IS A CANDIDATE FOR ANY DONATIONS. WAITING TO CALL [facility] OF [facility] UNTIL THE DONOR LINE CALLS THE UNIT BACK. SEE NOTES FOR ANY UPDATED.
--- NOTE | 2025-03-21 18:55 | NUR ---
DONOR LINE CALLED BACK AND THE PT IS NOT A CANDIDATE FOR ANY DONATIONS. THIS RN CALLED [facility] OF THE [facility]. ETA FOR DIRECTOR OF LABOR AND DELIVERY IS 45 MINUTES.
== END 2025-03-21 19:45 | DRG 480 ==
LOC: ER 09:47 → PCU 09:48 → ICUE 09:48 → SURS 09:48 → PCU 03-08 21:53 → SURS 03-11 11:00 → PCU 03-14 07:32 → ICUE 03-19 20:26 → PCU 03-20 13:15
PROVIDERS: Emergency Medicine; Family Medicine; Internal Medicine; Internal Medicine Critical Care Medicine; Orthopaedic Surgery Sports Medicine; Student in an Organized Health Care Education/Training Program; ADMIT Internal Medicine
PROC: 5A09457 Assistance with Respiratory Ventilation, 24-96 Consecutive Hours, Continuous Positive Airway Pressure (ICD-10-PCS; 2025-03-06)
PROC: 3E03329 Introduction of Other Anti-infective into Peripheral Vein, Percutaneous Approach (ICD-10-PCS; 2025-03-06)
PROC: 0QS634Z Reposition Right Upper Femur with Internal Fixation Device, Percutaneous Approach (ICD-10-PCS; principal; 2025-03-06 13:00)
PROC: 30233J1 Transfusion of Nonautologous Serum Albumin into Peripheral Vein, Percutaneous Approach (ICD-10-PCS; 2025-03-14)
PROC: 3E0336Z Introduction of Nutritional Substance into Peripheral Vein, Percutaneous Approach (ICD-10-PCS; 2025-03-16)
PROC: 30233N1 Transfusion of Nonautologous Red Blood Cells into Peripheral Vein, Percutaneous Approach (ICD-10-PCS; 2025-03-19)
DX: S72.011A Unspecified intracapsular fracture of right femur, initial encounter for closed fracture (principal); A41.9 Sepsis, unspecified organism; G92.8 Other toxic encephalopathy; J18.9 Pneumonia, unspecified organism; J69.0 Pneumonitis due to inhalation of food and vomit; Z66 Do not resuscitate; Z51.5 Encounter for palliative care; J96.01 Acute respiratory failure with hypoxia; J96.02 Acute respiratory failure with hypercapnia; J98.11 Atelectasis; N17.9 Acute kidney failure, unspecified; I48.92 Unspecified atrial flutter; E87.0 Hyperosmolality and hypernatremia; E87.21 Acute metabolic acidosis; E87.29 Other acidosis; E46 Unspecified protein-calorie malnutrition; I31.9 Disease of pericardium, unspecified; J90 Pleural effusion, not elsewhere classified; Z99.3 Dependence on wheelchair; I45.10 Unspecified right bundle-branch block; E11.65 Type 2 diabetes mellitus with hyperglycemia; E78.5 Hyperlipidemia, unspecified; E11.42 Type 2 diabetes mellitus with diabetic polyneuropathy; I10 Essential (primary) hypertension; I44.1 Atrioventricular block, second degree; D63.8 Anemia in other chronic diseases classified elsewhere; I48.0 Paroxysmal atrial fibrillation; Z68.31 Body mass index [BMI] 31.0-31.9, adult; S80.211A Abrasion, right knee, initial encounter; R13.13 Dysphagia, pharyngeal phase; M40.209 Unspecified kyphosis, site unspecified; Z93.3 Colostomy status; E86.0 Dehydration; T17.990A Other foreign object in respiratory tract, part unspecified in causing asphyxiation, initial encounter; Z92.3 Personal history of irradiation; Z92.21 Personal history of antineoplastic chemotherapy; Z87.891 Personal history of nicotine dependence; Z79.899 Other long term (current) drug therapy; Z79.84 Long term (current) use of oral hypoglycemic drugs; Z79.82 Long term (current) use of aspirin; Z86.14 Personal history of Methicillin resistant Staphylococcus aureus infection; Z86.718 Personal history of other venous thrombosis and embolism; Z86.73 Personal history of transient ischemic attack (TIA), and cerebral infarction without residual deficits; Z85.038 Personal history of other malignant neoplasm of large intestine; Z89.512 Acquired absence of left leg below knee; Z79.52 Long term (current) use of systemic steroids; Z90.49 Acquired absence of other specified parts of digestive tract; W01.0XXA Fall on same level from slipping, tripping and stumbling without subsequent striking against object, initial encounter; Y93.01 Activity, walking, marching and hiking; Y92.008 Other place in unspecified non-institutional (private) residence as the place of occurrence of the external cause
CPT/HCPCS: 0202U; 0528U; 31720; 36415; 36430; 70450; 71045; 72125; 72131; 72192; 73502; 73560-RT; 74177; 74230; 80048; 80053; 80069; 81001; 82550; 82607; 82746; 82803; 82947; 83036; 83605; 83735; 83874; 83880; 84100; 84145; 84439; 84443; 84478; 84481; 84484; 85025; 85027; 85651; 86140; 86850; 86900; 86901; 86923; 87040; 87070; 87086; 87205; 92526; 92610; 92611; 93005; 93010; 93306; 94640; 94660; 94664; 94667; 94668; 94760; 94762; 97110; 97162; 97164; 97166; 97168; 97530; 97535; 99285-25; A9270; C1713; C1751; C1769; J0295; J0456; J0690; J0696; J1100; J1650; J1815; J1938; J2185; J2270; J2371; J2405; J2470; J2543; J2704; J3010; J3370; J3411; J3475; J3480; J7030; J7040; J7050; J7060; J7070; J7120; P9016; P9047; Q9967